=== PATIENT | female | born 1970 | race Caucasian/White ===

== ENCOUNTER 2019-08-30 09:15 | Outpatient (RCR) | payer BC, SELFPAY | END 2019-10-01 23:59 | disposition home or self-care (01) | LOC: ANHDMC 09:15 | PROVIDERS: PCP Family Medicine; Visit Provider Family Medicine | DX: E11.9 Type 2 diabetes mellitus without complications (principal); Z71.89 Other specified counseling | CPT/HCPCS: G0108 ==

== ENCOUNTER 2019-09-15 20:24 | Emergency (ER) | payer BC, SELFPAY ==
--- NOTE | ~2019-09-15 | XR_ITS ---
XR tibia fibula LT 2V 09/15/2019 21:07 INDICATION: Left leg pain PROCEDURE: 2 views left tibia/fibula COMPARISON: No prior studies for comparison. FINDINGS: Fracture, dislocation or subluxation is not identified. The soft tissues appear within norm al limits. No foreign bodies are identified. IMPRESSION: 1: NO ACUTE BONE OR JOINT ABNORMALITY IDENTIFIED. Reviewed, dictated and finalized at location A. NCIAL AGENT
[2019-09-15 20:27] VITALS: BP 180/97; PULSE 105; RESP 20; TEMP 36.4; O2SAT 100
--- NOTE | 2019-09-15 21:10 | ED.WOUNDLAC ---
HPI - Wound/Laceration General Chief Complaint: Wound/Laceration Stated Complaint: lac Time Seen by Provider: 09/15/19 21:09 Source: patient Mode of arrival: ambulatory Limitations: no limitations History of Present Illness HPI narrative: The pt is a 53 y/o female who presents to the ED with c/o a wound to her lt cristobal that occurred this evening. The pt states that she cut her cristobal on a tree trunk. She is able to bear weight on her lt leg. The pt has a PMHx of DM I. Onset (ago): hour(s) (this evening) Location: other (lt cristobal) Extremity Location: Left: lower leg Associated symptoms: none Related Data Allergies Allergy/AdvReac Type Severity Reaction Status Date / Time No Known Allergies Allergy Verified 09/15/19 20:29 Review of Systems Review of Systems: All systems reviewed & are unremarkable except as noted in HPI and below Integumentary/Breasts: Skin/Breast: Reports wounds (lt cristobal) PMFSH Past Medical History Medical History (Updated 09/16/19 @ 00:00 by Juanita Veliz) DM I (diabetes mellitus, type I) Surgical History Surgical History (Updated 09/15/19 @ 21:16 by Asia Blanco) No pertinent past surgical history Social History Social History (Updated 09/15/19 @ 21:16 by Asia Blanco) Smoking status: Never smoker Exam Const: General: healthy appearing and no acute distress Nutritional Appearance: well nourished HENMT: Mouth: Yes lip normal and Yes moist mucous membranes Eyes: Conjunctivae: conjunctivae normal Pupils: Equal, round and reactive pupils present Resp: Effort & Inspection: normal respiratory effort Auscultation: clear to auscultation bilaterally Cardio: Rate: regular rate Rhythm: regular rhythm Heart sounds: no murmurs GI: GI Palp: Yes Soft to palpation and No Tenderness to palpation present (GI) Auscultation: normal bowel sounds Back/Spine/Pelvis: Back: other (full ROM) Skin: General skin exam: normal color, dry skin and other (warm) Wounds: wounds noted (5cm lt cristobal lac into subcutaneous fat) Neuro: General: patient oriented x3 Speech: normal speech Extrem: General: full ROM Psych: Mental Status: mental status grossly normal Affect: normal affect Course Vital Signs Vital signs: Vital Signs Temperature 36.4 C L 09/15/19 20:27 Pulse Rate 105 H 09/15/19 20:27 Respiratory Rate 20 09/15/19 20:27 Blood Pressure 180/97 H 09/15/19 20:27 Pulse Oximetry 100 09/15/19 20:27 Temperature 36.4 C L 09/15/19 20:27 Pulse Rate 105 H 09/15/19 20:27 Respiratory Rate 20 09/15/19 20:27 Blood Pressure 180/97 H 09/15/19 20:27 Pulse Oximetry 100 09/15/19 20:27 Procedures Laceration Laceration 1: Date: 09/15/19 Time: 21:57 Site: lower extremity Side (If applicable): left Size (cm): 5 Description: linear Local Anesthetic: lidocaine 1% and with epi Amount of anesthesia used (mL): 10 Pre-repair: wound explored and irrigated ====== Skin Level ====== Skin layer closed with: nylon Size (cm): 4-0 Number of sutures: 11 Technique: simple, interrupted ====== Subcutaneous Layer ====== Subcutaneous layer closed with: vicryl Size: 4-0 Number of sutures: 3 Technique: simple, interrupted ====== Muscle Layer ====== ====== Tendon Layer ====== MDM - Wound/Laceration Differential Diagnosis Differential diagnosis: Likely laceration and other (fracture) Medical Records Attestation: I reviewed the patient's medical records. Imaging Data Radiologist's impression: ITS Impressions Tibia/Fibula X-Ray 09/15/19 21:09 IMPRESSION: 1: NO ACUTE BONE OR JOINT ABNORMALITY IDENTIFIED. Discharge Plan Discharge Clinical Impression: Laceration Patient Disposition: Home, Self-Care Condition: Stable Instructions: Laceration (ED) Follow-up/Referrals: Jeanette Nava MD [Primary Care Provider] -
[2019-09-15] MEDS: TETANUS,DIPHTHERIA,AC PERTUSSIS ADULT 0.5 ML (ADACEL) IM (21:36)
== END 2019-09-15 21:50 | disposition home or self-care (01) ==
PROVIDERS: Emergency Provider Emergency Medicine; PCP Family Medicine
DX: S81.812A Laceration without foreign body, left lower leg, initial encounter (principal); E10.9 Type 1 diabetes mellitus without complications; Z23 Encounter for immunization; W26.8XXA Contact with other sharp object(s), not elsewhere classified, initial encounter
CPT/HCPCS: 12002; 12032; 73590; 90471; 90715; 99282; 99283

== ENCOUNTER 2019-09-25 16:17 | Emergency (ER) | payer BC, SELFPAY ==
[2019-09-25 16:34] VITALS: BP 132/77; PULSE 63; RESP 16; TEMP 36.1; O2SAT 100
--- NOTE | 2019-09-25 17:24 | ED.GENADULT ---
HPI - General Adult General Chief complaint: Wound/Laceration Stated complaint: INFECTED SUTURES Time Seen by Provider: 09/25/19 17:25 Source: patient Mode of arrival: ambulatory Limitations: no limitations History of Present Illness HPI narrative: 49-year-old female patient presents to the [facility] with complaints of an infected wound to the left lower leg. Patient states that she had stitches placed September 15 after getting a laceration to the left lower leg from a branch in her yard. Patient states that she is a type I diabetic. Patient states she was not placed on antibiotics at that time in the ER. Patient states that she thinks is getting worse and has had some yellow discharge and some surrounding redness. Denies any fevers, chest pain, shortness of breath. Patient states she does have an appointment with her primary doctor on Tuesday to have the stitches removed. Related Data Home Medications Medication Instructions Recorded Confirmed ibuprofen 200 mg capsule 200 mg PO Q6H PRN 06/22/19 09/25/19 levothyroxine 125 mcg tablet 125 mcg PO DAILY 06/22/19 09/25/19 milk thistle seed extract 87.5 mg 87.5 mg PO DAILY 06/22/19 09/25/19 capsule pen needle, diabetic 31 gauge x #30 each 06/22/19 09/03/1912/28 Fiasp Insulin 09/25/19 methotrexate 09/25/19 pravastatin 20 mg tablet 10 mg PO DAILY tablet 09/25/19 09/25/19 Allergies Allergy/AdvReac Type Severity Reaction Status Date / Time No Known Allergies Allergy Verified 09/25/19 16:42 Review of Systems Review of Systems: Narrative: CONSTITUTIONAL: Denies fever, chills, or sweats. EYES: Denies visual changes, redness, or discharge. ENT: Denies rhinorrhea, congestion, sore throat, or otalgia. CARDIOVASCULAR: Denies chest pain, palpitations, or edema. RESPIRATORY: Denies cough or dyspnea. GASTROINTESTINAL: Denies abdominal pain, nausea, vomiting, or diarrhea. GENITOURINARY: Denies dysuria or hematuria. SKIN: Denies rash or itching. Positive redness and yellow discharge coming from wound to left lower leg MUSCULOSKELETAL: Denies back pain, joint pain, or myalgia. NEUROLOGIC: Denies headache, numbness, or weakness. PSYCHIATRIC: Denies anxiety or depression. 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 There is no relevant family history pertinent to the presenting complaint. Exam Narrative: Exam Narrative: GENERAL: Well-appearing, well-nourished, and in no acute distress. HEAD: Normocephalic, atraumatic. EYES: PERRLA and EOMI. ENT: Nares clear, no rhinorrhea or epistaxis. Mucous membranes moist. NECK: Supple. No lymphadenopathy CHEST: Clear to auscultation. No respiratory distress. HEART: Regular rate and rhythm. No murmur heard. Normal peripheral pulses. ABDOMEN: Soft, nontender, nondistended, normal active bowel sounds. EXTREMITIES: Normal range of motion. No edema. SKIN: Warm, dry, no rash. Patient has approximately 5 cm linear laceration to the left lower cristobal area on the anterior side. There is some yellow discharge noted on the bandage and there is some surrounding erythema with slight warmth. The sutures are still intact. NEURO: No focal deficits. Alert and
== END 2019-09-25 17:36 | disposition home or self-care (01) ==
PROVIDERS: Emergency Provider Nurse Practitioner Family; PCP Family Medicine
DX: T81.41XA Infection following a procedure, superficial incisional surgical site, initial encounter (principal); S81.812D Laceration without foreign body, left lower leg, subsequent encounter; W26.8XXD Contact with other sharp object(s), not elsewhere classified, subsequent encounter; E78.5 Hyperlipidemia, unspecified; E03.9 Hypothyroidism, unspecified; E10.9 Type 1 diabetes mellitus without complications
CPT/HCPCS: 99213; G0463

== ENCOUNTER 2019-11-30 14:04 | Outpatient (CLI) | payer BC, SELFPAY ==
--- NOTE | ~2019-11-30 | US_ITS ---
EXAMINATION: US art doppler w press LE BI DATE: 11/30/2019 15:18 CDT INDICATION: Peripheral vascular disease TECHNIQUE: Segmental pressures and plethysmographic and Doppler waveforms of the brachial and lower e xtremity arteries were obtained. COMPARISON: None. FINDINGS: Right and left brachial artery pressures of 119 mm Hg and 127 mm Hg, respectively, are concordant (no rmal difference <= 30 mmHg). The right high-thigh pressure index is 1.11 (normal > 1.2). The right ankle-brachial index (FAYE) is 1 .02 (normal >= 0.9-1.0). The right great toe-brachial index (TBI) is 0.65 (normal >= 0.60). The right lower extremity segmental pressure gradients are normal (normal gradients <= 20-30 mmHg between kim cent levels on the same leg or the same levels on the two legs). Arterial Doppler waveforms are bipha sic and triphasic. The left high-thigh pressure index is 1.12. The left FAYE is 1.08. The left TBI is 0.65. The left lowe r extremity segmental pressure gradients are normal. Arterial Doppler waveforms are biphasic and trip hasic. IMPRESSION: 1. Normal bilateral ankle and toe brachial indices. Reviewed, dictated and finalized at location A.
== END 2019-11-30 14:05 | disposition home or self-care (01) ==
PROVIDERS: PCP Family Medicine; Visit Provider Podiatrist Foot & Ankle Surgery
DX: I73.9 Peripheral vascular disease, unspecified (principal)
CPT/HCPCS: 93923

== ENCOUNTER 2019-12-25 14:59 | Outpatient (CLI) | payer BC, SELFPAY ==
--- NOTE | 2019-12-25 | ECG_ITS ---
Measurements Intervals [place] Rate: 67 P: 70 WI: 128 QRS: 44 QRSD: 93 T: 58 QT: 384 QTc: 405 Interpretive Statements SINUS RHYTHM WITH SINUS ARRHYTHMIA INCOMPLETE RIGHT BUNDLE BRANCH BLOCK BORDERLINE ECG Electronically Signed On 12-25-2019 16:03:43 CDT by Jakob Dallas D.O.
[2019-12-25 16:18] LABS: Thyroid Stimulating Hormone 0.847 uIU/mL (0.465-4.680)
== END 2019-12-25 15:00 | disposition home or self-care (01) ==
PROVIDERS: PCP Family Medicine; Visit Provider Internal Medicine Endocrinology, Diabetes & Metabolism
DX: Z01.818 Encounter for other preprocedural examination (principal); E11.42 Type 2 diabetes mellitus with diabetic polyneuropathy; R03.0 Elevated blood-pressure reading, without diagnosis of hypertension; E03.9 Hypothyroidism, unspecified
CPT/HCPCS: 36415; 84439; 84443; 93005

== ENCOUNTER 2020-01-10 09:15 | Outpatient (RCR) | payer BC, SELFPAY | END 2020-02-04 23:59 | disposition home or self-care (01) | LOC: ANHDMC 09:15 | PROVIDERS: PCP Family Medicine; Visit Provider Family Medicine | DX: E11.9 Type 2 diabetes mellitus without complications (principal); Z71.89 Other specified counseling | CPT/HCPCS: G0108 ==

== ENCOUNTER 2020-01-11 08:10 | Outpatient (CLI) | payer BC, SELFPAY ==
[2020-01-11 08:41] LABS: Blood Urea Nitrogen 18 mg/dL (7-17); Calcium 8.8 mg/dL (8.4-10.2); Carbon Dioxide 32 mmol/L (22-30); Chloride 102 mmol/L (98-107); Estimated Glomerular Filt Rate > 60; Glucose 116 mg/dL (65-105); Potassium 4.2 mmol/L (3.4-5.0); Sodium 136 mmol/L (137-145)
== END 2020-01-11 08:11 | disposition home or self-care (01) ==
PROVIDERS: PCP Family Medicine; Visit Provider Podiatrist Foot & Ankle Surgery
DX: E11.42 Type 2 diabetes mellitus with diabetic polyneuropathy (principal)
CPT/HCPCS: 36415; 80048

== ENCOUNTER 2020-04-17 10:30 | Outpatient (RCR) | payer BC, SELFPAY | END 2020-04-17 16:25 | disposition home or self-care (01) | LOC: ANHDMC 10:30 | PROVIDERS: PCP Family Medicine; Visit Provider Family Medicine | DX: E11.9 Type 2 diabetes mellitus without complications (principal); Z71.89 Other specified counseling | CPT/HCPCS: G0108 ==

== ENCOUNTER 2020-08-12 10:15 | Outpatient (CLI) | payer BC, SELFPAY ==
[2020-08-12 11:10] LABS: Anion Gap 4 mmol/L (8-16); Blood Urea Nitrogen 19 mg/dL (7-17); Calcium 8.6 mg/dL (8.4-10.2); Carbon Dioxide 32 mmol/L (22-30); Chloride 102 mmol/L (98-107); Estimated Glomerular Filt Rate > 60; Glucose 90 mg/dL (65-105); Sodium 138 mmol/L (137-145)
== END 2020-08-12 10:16 | disposition home or self-care (01) ==
LOC: ANHLAB 10:17
PROVIDERS: PCP Family Medicine; Visit Provider Podiatrist Foot & Ankle Surgery
DX: E11.42 Type 2 diabetes mellitus with diabetic polyneuropathy (principal)
CPT/HCPCS: 36415; 80048

== ENCOUNTER 2020-08-19 09:14 | Outpatient (RCR) | payer BC, SELFPAY | END 2020-11-03 13:58 | disposition home or self-care (01) | LOC: ANHDMC 09:14 | PROVIDERS: PCP Family Medicine; Visit Provider Family Medicine | DX: E10.649 Type 1 diabetes mellitus with hypoglycemia without coma (principal); Z71.89 Other specified counseling | CPT/HCPCS: G0108 ==

== ENCOUNTER 2020-10-03 08:59 | Emergency (ER) | payer BC, SELFPAY ==
[2020-10-03 09:17] VITALS: BP 127/88; PULSE 89; RESP 20; TEMP 36.4; O2SAT 99
[2020-10-03 09:19] VITALS: BP 127/88; PULSE 89; RESP 20; TEMP 36.4; O2SAT 99
--- NOTE | 2020-10-03 09:19 | ED.URI ---
HPI - URI/Sore Throat General Chief Complaint: Upper Respiratory Infection Stated Complaint: SWOLLEN GLANDS/WHITE TONGUE Time Seen by Provider: 10/03/20 09:19 Source: patient Mode of arrival: ambulatory Limitations: no limitations History of Present Illness HPI Narrative: Donna Bocanegra is a 50 yo female with a PMH of type 1 diabetes, rheumatoid arthritis, hypothyroid, high cholesterol, [facility] with complaints of sore throat swollen lymph nodes and fatigue that started on Tuesday. She states that she has been home most times except she was out at the store earlier in the week when she started to feel poorly and also was at a school event last week to receive her first dose of Pfizer vaccine. Patient has lost 100 pounds and has maintained this lower weight for year and consequently her cholesterol medication is considered to be preventative for coronary artery disease as she is a type I diabetic. She is a non-smoker only occasionally drinks Blood sugar today is 149 Related Data Home Medications Medication Instructions Recorded Confirmed pravastatin 20 mg tablet 10 mg PO DAILY tablet 09/25/19 10/03/20 Allergies Allergy/AdvReac Type Severity Reaction Status Date / Time No Known Allergies Allergy Verified 10/03/20 09:17 Review of Systems Review of Systems: Narrative: CONSTITUTIONAL: Denies fever, chills, sweats. EYES: Denies visual changes, redness, discharge. ENT: Denies rhinorrhea, congestion, has sore throat, otalgia. Has white coating on tongue, swollen lymph nodes in throat CARDIOVASCULAR: Denies chest pain, palpitations, edema. RESPIRATORY: Denies dyspnea, wheezing, cough GASTROINTESTINAL: Denies abdominal pain, nausea, vomiting, diarrhea. GENITOURINARY: Denies dysuria, hematuria, abnormal discharge SKIN: Denies rash or itching. NEUROLOGIC: Denies numbness, or focal weakness. PSYCHIATRIC: Denies anxiety or depression. [facility] Past Medical History Medical History (Updated 10/03/20 @ 09:54 by Beatriz Prado CNP) DM I (diabetes mellitus, type I) HLD (hyperlipidemia) Hypothyroidism Rheumatoid arthritis Type 1 diabetes mellitus without complications Surgical History Surgical History (Updated 10/03/20 @ 09:37 by Beatriz Prado CNP) History of foot surgery Family History Family History Father Family history of arthritis Mother Family history of heart disease in male family member before age 55 Other Family history of alcoholism Family history of osteoporosis Family history of seizure disorder Social History Social History Smoking status: Never smoker Second hand tobacco smoke exposure: No Alcohol intake: current 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 There is no relevant family history pertinent to the presenting complaint. Exam Narrative: Exam Narrative: GENERAL: This is a well-nourished, well-developed patient, in moderate distress. HEAD: normocephalic, atraumatic. EYES:. Sclera clear/white. Vision is grossly intact. EARS: External ears normal, auditory canals clear and without drainage, TMs normal without perforation. Hearing grossly intact. NOSE: External nose normal without nasal discharge, nares without redness, no rhinorrhea. THROAT: Mucous membranes moist, posterior pharynx bilateral swelling in posterior pharynx, slight white ness to tongue NECK: Neck supple, bilateral tender submandibular lymph nodes, posterior lymph nodes are nontender CARDIOVASCULAR: Regular rate and rhythm without murmurs, gallops, or rubs. RESPIRATORY: Clear to auscultation. Breath sounds equal bilaterally. No wheezes, rales, or rhonchi. GASTROINTESTINAL: Abdomen soft, SKIN: warm, intact with no suspicious lesions or rash, good texture and turgor. NEURO: nicci
== END 2020-10-03 10:16 | disposition home or self-care (01) ==
PROVIDERS: Emergency Provider Nurse Practitioner; PCP Family Medicine
DX: J02.9 Acute pharyngitis, unspecified (principal); Z20.822 Contact with and (suspected) exposure to COVID-19; E10.9 Type 1 diabetes mellitus without complications; E78.5 Hyperlipidemia, unspecified; E03.9 Hypothyroidism, unspecified; M06.9 Rheumatoid arthritis, unspecified
CPT/HCPCS: 87081; 87426; 87880; 99213; C9803; G0463

== ENCOUNTER 2020-12-08 10:45 | Outpatient (CLI) | payer BC, SELFPAY ==
[2020-12-08 12:40] LABS: Anion Gap 5 mmol/L (8-16); Blood Urea Nitrogen 19 mg/dL (7-17); Carbon Dioxide 28 mmol/L (22-30); Chloride 107 mmol/L (98-107); Estimated Glomerular Filt Rate > 60; Glucose 149 mg/dL (65-105); HDL Direct 96 mg/dL; Potassium 4.3 mmol/L (3.4-5.0); Sodium 140 mmol/L (137-145)
[2020-12-08 12:51] LABS: LDL Cholesterol Direct 83 mg/dL
[2020-12-08 12:55] LABS: Free T4 Free Thyroxine 1.35 ng/mL (0.78-2.19)
[2020-12-08 13:08] LABS: Microalbumin Urine Random 20.1 mg/L (0-16.7)
== END 2020-12-08 10:46 | disposition home or self-care (01) ==
LOC: ANHWCLAB 10:47
PROVIDERS: PCP Family Medicine; Visit Provider Internal Medicine Endocrinology, Diabetes & Metabolism
DX: E10.649 Type 1 diabetes mellitus with hypoglycemia without coma (principal); E03.9 Hypothyroidism, unspecified
CPT/HCPCS: 36415; 80048; 82043; 83718; 83721; 84439; 84443

== ENCOUNTER 2021-02-17 12:15 | Emergency (ER) | payer BC, SELFPAY ==
[2021-02-17] VITALS (13 sets, daily range): BP systolic 122–155; BP diastolic 62–94; PULSE 72–85; RESP 18; TEMP 36.3; O2SAT 90–100
[2021-02-17 12:55] LABS: Basophils Absolute Auto 0.1 K/mm3 (0.0-0.1); Basophils Percent Auto 0.9 % (0.2-1.2); Eosinophils Absolute Auto 0.2 K/mm3 (0-0.3); Eosinophils Percent Auto 2.4 % (0-4.4); Hemoglobin 13.2 g/dL (12.0-15.0); Immature Granulocyte Absolute 0.03 K/mm3 (0.00-0.031); Immature Granulocyte Percent A 0.4 % (0-0.5); Lymphocytes Absolute Auto 2.34 K/mm3 (0.9-3.2); Mean Corpuscular HGB Conc 33.8 g/dl (32-36); Mean Corpuscular Hemoglobin 30.6 pg (26-34); Mean Corpuscular Volume 90.3 fl (80-100); Mean Platelet Volume 10.6 fl (7.4-10.4); Monocytes Absolute Auto 0.8 K/mm3 (0.1-0.6); Monocytes Percent Auto 9.8 % (2.6-8.5); Neutrophils Absolute Auto 4.6 K/mm3 (1.3-6.7); Neutrophils Percent Auto 57.5 % (45.5-73.1); Platelet Count Result 211 k/mm3 (150-375); Red Blood Count 4.32 M/mm3 (4.2-5.4); Red Cell Distribution Width 12.7 % (11.5-14.5); White Blood Count 8.1 K/mm3 (4.5-10.0)
[2021-02-17 13:05] LABS: Alanine Aminotransferase 19 U/L (4-35); Albumin Level 4.1 g/dL (3.5-5.1); Alkaline Phosphatase 118 U/L (38-126); Anion Gap 6 mmol/L (8-16); Aspartate Amino Transferase 32 U/L (14-36); Bilirubin,Total 1.5 mg/dL (0.2-1.3); Blood Urea Nitrogen 15 mg/dL (7-17); Calcium 8.9 mg/dL (8.4-10.2); Carbon Dioxide 30 mmol/L (22-30); Chloride 102 mmol/L (98-107); Estimated CRCL calculation 101 ml/min; Estimated Glomerular Filt Rate > 60; Glucose 192 mg/dL (65-105); Sodium 138 mmol/L (137-145)
[2021-02-17 16:47] LABS: Glucose Point of Care 89 mg/dl (65-105)
--- NOTE | 2021-02-17 18:43 | ED.WOUNDLAC ---
HPI - Wound/Laceration General Chief Complaint: Wound/Laceration Stated Complaint: Abscess R Upper Arm Time Seen by Provider: 02/17/21 16:49 Source: patient Mode of arrival: ambulatory Limitations: no limitations History of Present Illness HPI narrative: Patient is a 50-year-old female who presents complaining of abscess to right upper arm. She reports it is possibly from her glucose monitoring patch. Patient reports noticing area of redness approximately 3 days ago. Patient reports being seen in on Tuesday and started on antibiotics. Patient reports that she was instructed to keep hot packs on and if abscess did not start draining, she would have to go to the ED or another urgent care for incision and drainage. Patient reports increased pain and swelling over the past day. She denies all other complaints at this time. Related Data Home Medications Medication Instructions Recorded Confirmed pravastatin 20 mg tablet 10 mg PO DAILY tablet 09/25/19 10/03/20 Allergies Allergy/AdvReac Type Severity Reaction Status Date / Time No Known Allergies Allergy Verified 10/03/20 09:17 Review of Systems Review of Systems: Narrative: CONSTITUTIONAL: Denies fever, chills, or sweats. EYES: Denies visual changes, redness, or discharge. ENT: Denies rhinorrhea, congestion, sore throat, or otalgia. CARDIOVASCULAR: Denies chest pain, palpitations, or edema. RESPIRATORY: Denies cough or dyspnea. GASTROINTESTINAL: Denies abdominal pain, nausea, vomiting, or diarrhea. GENITOURINARY: Denies dysuria or hematuria. SKIN: Reports abscess to right upper arm MUSCULOSKELETAL: Denies back pain, joint pain, or myalgia. NEUROLOGIC: Denies headache, numbness, dizziness, or weakness. PSYCHIATRIC: Denies anxiety or depression. [facility] Past Medical History Medical History DM I (diabetes mellitus, type I) HLD (hyperlipidemia) Hypothyroidism Rheumatoid arthritis Type 1 diabetes mellitus without complications Surgical History Surgical History History of foot surgery Family History Family History Father Family history of arthritis Mother Family history of heart disease in male family member before age 55 Other Family history of alcoholism Family history of osteoporosis Family history of seizure disorder Social History Social History Smoking status: Never smoker Second hand tobacco smoke exposure: No Alcohol intake: current 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 Please see nursing chart for further information. There is no relevant family history pertinent to the presenting complaint. Exam Narrative: Exam Narrative: GENERAL: Well-appearing, well-nourished, and in no acute distress. HEAD: Normocephalic, atraumatic. EYES: EOMI. No redness or drainage. Conjunctiva are normal. ENT: Mucous membranes pink and moist. CHEST: No respiratory distress. HEART: Regular rate and rhythm. No murmur appreciated. Normal peripheral pulses. EXTREMITIES: Normal range of motion. SKIN: Approximate 3 x 4 cm area of erythema to right upper arm, fluctuation induration noted, no drainage, tender with palpation NEURO: No focal deficits. Alert and oriented x3. Gait steady. PSYCH: Normal affect. No signs of depression or anxiety. Course Vital Signs Vital signs: Vital Signs Temperature 36.3 C L 02/17/21 12:32 Pulse Rate 85 02/17/21 12:32 Respiratory Rate 18 02/17/21 12:32 Blood Pressure 129/89 02/17/21 12:32 Pulse Oximetry 100 02/17/21 12:32 Temperature 36.3 C L 02/17/21 12:32 Pulse Rate 80 02/17/21 19:10 Respiratory Rate 18 07/0
== END 2021-02-17 19:11 | disposition home or self-care (01) ==
PROVIDERS: Emergency Medicine; Emergency Provider Nurse Practitioner; PCP Family Medicine
DX: L02.413 Cutaneous abscess of right upper limb (principal); E10.9 Type 1 diabetes mellitus without complications; E78.5 Hyperlipidemia, unspecified; E03.9 Hypothyroidism, unspecified; M06.9 Rheumatoid arthritis, unspecified; R03.0 Elevated blood-pressure reading, without diagnosis of hypertension
CPT/HCPCS: 10060; 36415; 80053; 82948; 85025; 99283

== ENCOUNTER 2021-04-10 17:22 | Emergency (ER) | payer BC, SELFPAY ==
[2021-04-10 17:31] VITALS: BP 134/77; PULSE 69; RESP 16; TEMP 36.6; O2SAT 100
[2021-04-10] MEDS: LIDOCAINE/PRILOCAINE CREAM 2.5-2.5% TUBE 1 EACH TOPICAL (17:44)
--- NOTE | 2021-04-10 17:44 | ED.SKABFB ---
HPI - Skin/Abscess/Foreign Bdy General Chief complaint: Skin/Abscess/Foreign Body Stated complaint: pos skin infection Time Seen by Provider: 04/10/21 18:17 Source: patient and RN notes reviewed Limitations: no limitations History of Present Illness HPI narrative: The vaccinated patient, on several meds including insulin pump, presents with skin eruption. Patient states she had a prior infection of her disposable, 3-day insulin pump. Back in February, axillary skin infection culture was remarkable for staph aureus with sensitivity to most, except penicillin and Bactrim. She now complains of similar symptoms on her back, medial right shoulder from a nickel sized area of redness, tenderness and swelling where she had the pump [she has since moved the pump to her left forearm]. No fever, streaking, discharge; discussed plan to provide needle I&D of the relatively small area, non fluctuant/ non abscessed aea and resume previous antibiotics [clindamycin]. Patient advised to go to the hospital or PMD in follow-up, especially not improved Related Data Home Medications Medication Instructions Recorded Confirmed pravastatin 20 mg tablet 10 mg PO DAILY tablet 09/25/19 04/10/21 insulin aspart (niacinamide) 14.5 unit SUBCUT DAILY 04/10/21 04/10/21 [Fiasp U-100 Insulin] Allergies Allergy/AdvReac Type Severity Reaction Status Date / Time No Known Allergies Allergy Verified 04/10/21 18:15 Review of Systems Review of Systems: General/Constitutional: No weight loss,fever Eyes: N0: Redness,discharge Ears/Nose/Throat: No: Epistaxis,ear discharge Respiratory: Denies: Hemoptysis Gastrointestinal: No Vomiting, Bleeding-rectal Skin: REPORTS Lumps, eruption Neurologic: No Focal Weakness,Sz Hematologic: Denies: Petechiae/Purpura Psychiatric: No: Suicida ideationl All Other Systems: Reviewed and Negative [facility] Past Medical History Medical History DM I (diabetes mellitus, type I) HLD (hyperlipidemia) Hypothyroidism Rheumatoid arthritis Type 1 diabetes mellitus without complications Surgical History Surgical History History of foot surgery Family History Family History Father Family history of arthritis Mother Family history of heart disease in male family member before age 55 Other Family history of alcoholism Family history of osteoporosis Family history of seizure disorder Social History Social History Second hand tobacco smoke exposure: No Alcohol intake: current 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 There is no relevant family history pertinent to the presenting complaint Exam Narrative: General Appearance: Nourished,Normocephalic,, Conjunctiva clear Ear: External ear normal Nose: Normal nose, Nare clear Mouth/Throat: Normal appearing Neck Exam: Supple Respiratory: Airway patent, No respiratory distress Musculoskeletal: Moves all extremities, Non tender Skin: Warm, Dry ; quarter size area of induration of the right paraspinous area without abscess/fluctuance Neurological: A&O x3 Psychiatric: Normal mood, Normal affect Course Vital Signs Vital signs: Vital Signs Temperature 97.9 F 04/10/21 17:31 Pulse Rate 69 04/10/21 17:31 Respiratory Rate 16 04/10/21 17:31 Blood Pressure 134/77 04/10/21 17:31 Pulse Oximetry 100 04/10/21 17:31 Temperature 97.9 F 04/10/21 17:31 Pulse Rate 69 04/10/21 17:31 Respiratory Rate 16 04/10/21 17:31 Blood Pressure 134/77 04/10/21 17:31 Pulse Oximetry 100 04/10/21 17:31 Procedures Abscess I/D back: Date of Incision: 04/10/21 Side (if applicable): kristine
== END 2021-04-10 18:17 | disposition home or self-care (01) ==
PROVIDERS: Emergency Provider Emergency Medicine; PCP Family Medicine
DX: L73.9 Follicular disorder, unspecified (principal); E10.9 Type 1 diabetes mellitus without complications; E78.5 Hyperlipidemia, unspecified; E03.9 Hypothyroidism, unspecified; M06.9 Rheumatoid arthritis, unspecified
CPT/HCPCS: 10140; 99203; 99213; G0463

== ENCOUNTER 2021-06-11 15:24 | Outpatient (CLI) | payer BC, SELFPAY ==
--- NOTE | ~2021-06-11 | MM_ITS ---
EXAMINATION: MM screening luis BI w luca HISTORY: Screening mammogram TECHNIQUE: Craniocaudal and mediolateral oblique 3-D tomosynthesis images were obtained and synthetic 2-D images were generated. CAD analysis was submitted and interpreted. COMPARISON: 07/11/2019, 03/21/2015 bilateral screening mammogram examinations BREAST PARENCHYMAL COMPOSITION: FINDINGS: There is no evidence of suspicious mass, calcification, or architectural distortion to sugg est malignancy in either breast. There has been no suspicious interval change. IMPRESSION: 1. No mammographic evidence of malignancy. 2. Recommend routine screening mammography in one year. BI-RADS Category 1: Negative Reviewed, dictated and finalized at location A.
== END 2021-06-11 15:25 | disposition home or self-care (01) ==
LOC: ANHIMG 15:26
PROVIDERS: PCP Family Medicine; Visit Provider Physician Assistant
DX: Z12.31 Encounter for screening mammogram for malignant neoplasm of breast (principal)
CPT/HCPCS: 77063; 77067

== ENCOUNTER 2021-06-27 16:39 | Emergency (ER) | payer BC, SELFPAY ==
[2021-06-27 16:46] VITALS: BP 137/83; PULSE 73; RESP 18; TEMP 36.2; O2SAT 100
--- NOTE | 2021-06-27 17:00 | ED.GENADULT ---
HPI - General Adult General Chief complaint: Ear Stated complaint: ear pain Source: patient Mode of arrival: ambulatory Limitations: no limitations History of Present Illness HPI narrative: 50 y/o female. PMHx Hypothyroid, HLD, DM. Presents to [facility] today with acute complaints of LT side otalgia, worsening in the past 5 days. Pt reports her LT ear to have been 'aching', and she notes having had 'yellow' discharge from her ear in the past few days. No fevers. No auditory trauma, changes, or loss. She reports her symptoms to have been refractory to home Tylenol regimen. Pt is without additional acute c/o illness upon PE. Related Data Home Medications Medication Instructions Recorded Confirmed pravastatin 20 mg tablet 10 mg PO DAILY tablet 09/25/19 05/26/21 Allergies Allergy/AdvReac Type Severity Reaction Status Date / Time No Known Allergies Allergy Verified 05/20/21 15:17 Review of Systems Review of Systems: CONSTITUTIONAL: Denies fever, chills, sweats. EYES: Denies visual changes, redness, discharge. ENT: Denies rhinorrhea, congestion, sore throat. Positive otalgia LT. CARDIOVASCULAR: Denies chest pain, palpitations, edema. RESPIRATORY: Denies dyspnea, wheezing, cough GASTROINTESTINAL: Denies abdominal pain, nausea, vomiting, diarrhea. GENITOURINARY: Denies dysuria, hematuria, abnormal discharge SKIN: Denies rash or itching. MUSCULOSKELETAL: Denies acute back pain, joint pain, or myalgia. NEUROLOGIC: Denies numbness, or focal weakness. PSYCHIATRIC: Denies anxiety or depression. All systems reviewed & are unremarkable except as noted in HPI and below [facility] Past Medical History Medical History DM I (diabetes mellitus, type I) HLD (hyperlipidemia) Hypothyroidism Rheumatoid arthritis Type 1 diabetes mellitus without complications Surgical History Surgical History History of foot surgery Family History Family History Father Family history of arthritis Mother Family history of heart disease in male family member before age 55 Other Family history of alcoholism Family history of osteoporosis Family history of seizure disorder Social History Social History Second hand tobacco smoke exposure: No Alcohol intake: current Drinks per week: 4 Substance use: current Substance use type: marijuana Other substance usage details: edibles; 2x/week 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 HEAD: normocephalic, atraumatic. EYES: PERRL. Sclera clear/white. EARS: External ears normal. LT auditory canal is erythematous with mild yellow discharge. TM Bulging. Positive Tragus maneuver LT. No obstruction or perforation. RT auditory exam is normal. No hearing deficits. NOSE: External nose normal. Positive Rhinorrhea, no obstruction, nares patent. THROAT: Mucous membranes moist, posterior pharynx clear. No exudates. NECK: Neck supple, non-tender without lymphadenopathy, masses or thyromegaly. CARDIOVASCULAR: Regular rate and rhythm without murmurs, gallops, or rubs. RESPIRATORY: Clear to auscultation. Breath sounds equal bilaterally. No wheezes, rales, or rhonchi. GASTROINTESTINAL: Abdomen soft, non-tender, nondistended. Bowel sounds are active. No guarding. SKIN: warm, intact with no suspicious lesions or rash, good texture and turgor. NEURO: Alert, active, and age appropriate. No focal neurologic deficits. Course Vital Signs Vital signs: Vital Signs Temperature 36.2 C L 06/27/21 16:46 Pulse Rate 73 06/27/21 16:46 Respiratory Rate 18 06/27/21 16:46 Blood Pressure 137/83 06/27/21 16:46 Pulse Oximetry 100 06/27/21 1
== END 2021-06-27 17:04 | disposition home or self-care (01) ==
PROVIDERS: Emergency Provider Nurse Practitioner Adult Health; PCP Family Medicine
DX: H66.92 Otitis media, unspecified, left ear (principal); E10.9 Type 1 diabetes mellitus without complications; E78.5 Hyperlipidemia, unspecified; E03.9 Hypothyroidism, unspecified; M06.9 Rheumatoid arthritis, unspecified
CPT/HCPCS: 99213; G0463

== ENCOUNTER 2021-11-26 10:19 | Emergency (ER) | payer BC, SELFPAY ==
[2021-11-26] VITALS (23 sets, daily range): BP systolic 116–141; BP diastolic 40–108; PULSE 67–96; RESP 15–24; TEMP 37.2; O2SAT 94–100
--- NOTE | ~2021-11-26 | CT_ITS ---
EXAMINATION: CTA chest PE protocol DATE: 11/26/2021 12:34 INDICATION: Shortness of breath. COVID-19 positive. TECHNIQUE: Computed tomography angiography (CTA) of the chest was performed with 100 mL Omnipaque-350 intravenous contrast timed to evaluate the pulmonary arteries. Coronal maximum intensity projection 3D-reconstructions were created by the technologist. Automated exposure control and iterative reconst ruction technique were employed. The dose-length product was 214.22 mGy-cm. COMPARISON: Chest 2 views 12/28/2016 FINDINGS: There is mild paraspinal scarring in right lower lobe. There is bronchiectasis in left uppe r lobe and left lower lobe with mucous plugging in left lower lobe. There is mild atelectasis in left lower lobe. There are airspace opacities with volume loss and architectural distortion in left upper lobe, consistent with scarring. There are two 5 mm nodules in left lower lobe, likely benign. No ple ural effusion. The heart size is normal. No pericardial effusion. There is no pulmonary embolus. Ther e is dextroscoliosis and severe spondylosis of thoracic spine. There is mild chronic anterior wedging of multiple vertebral bodies. IMPRESSION: 1. No pulmonary embolus. 2. Bronchiectasis and chronic scarring in left lung. Reviewed, dictated and finalized at location A.
--- NOTE | ~2021-11-26 | XR_ITS ---
EXAMINATION: XR chest 1V portable DATE: 11/26/2021 11:12 INDICATION: Shortness of breath. COVID-19 positive. TECHNIQUE: A single frontal view of the chest was obtained on 2 radiographs. COMPARISON: Chest 2 views 12/28/2016 FINDINGS: There is mild scarring in left upper lobe. No pleural effusion or pneumothorax. The heart s ize is normal. There is a prominent left paracardial fat pad. IMPRESSION: 1. Stable mild scarring in left lung upper lobe. Reviewed, dictated and finalized at location A.
[2021-11-26 10:26] LABS: Glucose Point of Care 81 mg/dl (65-105)
--- NOTE | 2021-11-26 10:31 | ECG_ITS ---
Measurements Intervals [place] Rate: 83 P: 46 NV: 136 QRS: 18 QRSD: 91 T: 55 QT: 335 QTc: 395 Interpretive Statements SINUS RHYTHM INCOMPLETE RIGHT BUNDLE BRANCH BLOCK [90+ ms QRS DURATION, TERMINAL R IN V1/V2, 40+ ms S IN I/aVL/V4/V5/V6] BORDERLINE ECG COMPARED TO ECG 12/25/2019 15:28:24 NO SIGNIFICANT CHANGES Electronically Signed On 11-26-2021 16:57:55 CDT by Michel Orellana M.D.
--- NOTE | 2021-11-26 10:41 | ED.GENADULT ---
HPI - General Adult General Chief complaint: Nausea/Vomiting/Diarrhea Stated complaint: diabetes (Type 1, diag w/ COVID yest) Time Seen by Provider: 11/26/21 10:23 Source: patient Mode of arrival: ambulatory Limitations: no limitations History of Present Illness HPI narrative: This is a 51 year old female with history of DM type 1 who presents for evaluation of shortness of breath . She states she developed fatigue, dry cough, diarrhea and congestion on Tuesday. She has continued to have daily diarrhea with dry cough. Last night she developed nausea and vomiting, and she states her blood sugars were in 300s this morning. She has been bolusing herself insulin. She had a virtual appointment today and she was told to come to ER for evaluation due to have shortness of breath. She is unsure if shortness of breath is from anxiety or covid. She tested positive for COVID yesterday. She denies chest pain or abdominal pain Related Data Home Medications Medication Instructions Recorded Confirmed pravastatin 20 mg tablet 10 mg PO DAILY tablet 09/25/19 10/19/21 Allergies Allergy/AdvReac Type Severity Reaction Status Date / Time No Known Allergies Allergy Verified 11/26/21 10:33 Review of Systems Review of Systems: All systems reviewed & are unremarkable except as noted in HPI and below Constitutional: Constitutional: Reports chills ENT: Reports nasal congestion Cardiovascular: Cardiovascular: Denies chest pain and Denies rapid heart rate Respiratory: Respiratory: Reports cough, Reports dyspnea and Denies wheezing Gastrointestinal: Gastrointestinal: Denies abdominal pain, Reports diarrhea, Reports nausea and Reports vomiting PMFSH Past Medical History Medical History DM I (diabetes mellitus, type I) HLD (hyperlipidemia) Hypothyroidism Rheumatoid arthritis Type 1 diabetes mellitus without complications Surgical History Surgical History History of foot surgery Family History Family History Father Family history of arthritis Mother Family history of heart disease in male family member before age 55 Other Family history of alcoholism Family history of osteoporosis Family history of seizure disorder Social History Social History Smoking status: Never smoker Second hand tobacco smoke exposure: No Alcohol intake: current Drinks per week: 4 Substance use: current Substance use type: marijuana Other substance usage details: edibles; 2x/week 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 Exam Const: General: no acute distress and alert Orientation/consciousness: patient oriented x3 Eyes: EOM: EOMs intact bilaterally Chest: Chest palpation & inspection: normal inspection of the chest Resp: Effort & Inspection: normal respiratory effort and no retractions Auscultation: clear to auscultation bilaterally Cardio: Rate: regular rate Rhythm: regular rhythm Heart sounds: no murmurs GI: GI Palp: Yes Soft to palpation, No Tenderness to palpation present (GI) and No Guarding due to palpation present (GI) Auscultation: normal bowel sounds Back/Spine/Pelvis: Back: no CVA tenderness Skin: General skin exam: normal color Rashes: no rashes Neuro: General: patient oriented x3, moves all extremities and CN's II-XI intact bilaterally Extrem: General: normal to inspection Psych: Mental Status: mental status grossly normal Affect: normal affect Course Reevaluation(s) Reevaluation #1: I have discussed labs and cT with patient. She has normal vitals and no pneumonia or PE. She is requesting prescription for paxlovid. She is day 5 of onset so will prescribed. Date: 11/26/21 Time: 13:13 Vital Signs Vital signs: Vital Signs Temperature 99 F 11/26/21 10:25
[2021-11-26 10:54] LABS: Basophils Absolute Auto 0.1 K/mm3 (0.0-0.1); Basophils Percent Auto 1.1 % (0.2-1.2); Eosinophils Absolute Auto 0.1 K/mm3 (0-0.3); Eosinophils Percent Auto 1.3 % (0-4.4); Hematocrit 41.1 % (37.0-47.0); Hemoglobin 13.5 g/dL (12.0-15.0); Immature Granulocyte Absolute 0.01 K/mm3 (0.00-0.031); Immature Granulocyte Percent A 0.2 % (0-0.5); Lymphocytes Percent Auto 29.9 % (18.3-44.2); Mean Corpuscular HGB Conc 32.8 g/dl (32-36); Mean Corpuscular Hemoglobin 30.7 pg (26-34); Mean Corpuscular Volume 93.4 fl (80-100); Mean Platelet Volume 10.5 fl (7.4-10.4); Monocytes Percent Auto 18.9 % (2.6-8.5); Neutrophils Absolute Auto 2.6 K/mm3 (1.3-6.7); Neutrophils Percent Auto 48.6 % (45.5-73.1); Platelet Count Result 211 k/mm3 (150-375); Red Cell Distribution Width 13.4 % (11.5-14.5); White Blood Count 5.4 K/mm3 (4.5-10.0)
[2021-11-26] MEDS: SODIUM CHLORIDE 0.9% IV 1,000 ML 999 ML IV CONT (10:57)
[2021-11-26] MEDS: ONDANSETRON INJ 4 MG/2 ML VIAL IV PUSH (10:57)
[2021-11-26 10:58] LABS: Alveolar/Arterial O2 Gradient 25.5 mmHg; Base Excess ABG 0.5 mEq/l (+/-2.0); Carboxyhemoglobin 0.2 % THb (0-2.0); Fractional Inspired Oxygen 21 %; HCO3 ABG 22.9 mEq/l (22.0-26.0); Methemoglobin ABG 0.2 %THb (0-1.5); Modified Allen's Test Pass; Oxygen Content ABG 18.8 %vol (16.0-22.0); Oxygen Saturation ABG 97.4 % (95.0-100.0); Oxyhemoglobin 96.4 % THb (90.0-100.0); PCO2 ABG 30.5 mmHg (35.0-45.0); PO2 ABG 87.7 mmHg (80.0-100.0); PO2 FiO2 Ratio Arterial Blood 4.18 %; Reduced Hemoglobin 3.2 %THb (0-5.0); Site Drawn LEFT RADIAL; Total Hemoglobin 13.8 g/dL (12.0-18.0); pH ABG 7.493 (7.350-7.450)
[2021-11-26 10:59] LABS: Device ROOM AIR
[2021-11-26 11:02] LABS: Alanine Aminotransferase 37 U/L (4-35); Albumin Level 3.9 g/dL (3.5-5.1); Alkaline Phosphatase 118 U/L (38-126); Anion Gap 5 mmol/L (8-16); Aspartate Amino Transferase 57 U/L (14-36); Bilirubin,Total 0.8 mg/dL (0.2-1.3); Blood Urea Nitrogen 17 mg/dL (7-17); Calcium 8.4 mg/dL (8.4-10.2); Carbon Dioxide 26 mmol/L (22-30); Chloride 104 mmol/L (98-107); Estimated CRCL calculation 93 ml/min; Estimated Glomerular Filt Rate > 60; Glucose 82 mg/dL (65-110); Lipase 82 U/L (23-300); Sodium 135 mmol/L (137-145)
[2021-11-26 11:03] LABS: Prothrombin Time 13.2 Seconds (11.1-14.7)
[2021-11-26 11:04] LABS: Partial Thromboplastin Time 30.9 SECONDS (22.3-36.8)
[2021-11-26 11:06] LABS: D Dimer 0.55 ug/mL (<0.48)
[2021-11-26 11:08] LABS: Appearance Urine Clear (Clear); Bilirubin Urine Negative (Negative); Blood Urine Negative (Negative); Color Urine Yellow (Yellow); Glucose Urine UA Negative (Negative); Ketones Urine Negative (Negative); Leukocyte Esterase Ur Negative LEU/UL (Negative); Nitrate Urine Negative (Negative); Protein Urine Negative (Negative); Urobilinogen Urine 0.2 mg/dL (<2.0)
[2021-11-26 11:10] LABS: Add Urine Microscopic? NO
== END 2021-11-26 13:31 | disposition home or self-care (01) ==
PROVIDERS: Emergency Provider General Practice; PCP Family Medicine
DX: U07.1 COVID-19 (principal); R06.00 Dyspnea, unspecified; R11.2 Nausea with vomiting, unspecified; E10.9 Type 1 diabetes mellitus without complications; E78.5 Hyperlipidemia, unspecified; E03.9 Hypothyroidism, unspecified; M06.9 Rheumatoid arthritis, unspecified; Z79.4 Long term (current) use of insulin; I45.10 Unspecified right bundle-branch block; J47.9 Bronchiectasis, uncomplicated
CPT/HCPCS: 36415; 36600; 71045; 71275; 80053; 81003; 81025; 82375; 82805; 82948; 83050; 83690; 85025; 85380; 85610; 85730; 93005; 96361; 96374; 99284; J2405; J7030; Q9967

== ENCOUNTER 2022-01-12 08:01 | Outpatient (CLI) | payer BC, SELFPAY ==
[2022-01-12 09:44] LABS: Anion Gap 5 mmol/L (8-16); Blood Urea Nitrogen 19 mg/dL (7-17); Calcium 8.4 mg/dL (8.4-10.2); Carbon Dioxide 27 mmol/L (22-30); Chloride 108 mmol/L (98-107); Cholesterol 214 mg/dL (0-200); Estimated Glomerular Filt Rate > 60; Glucose 72 mg/dL (65-110); HDL Direct 90 mg/dL; Potassium 4.2 mmol/L (3.4-5.0); Sodium 140 mmol/L (137-145); Triglycerides 50 mg/dL (<150)
[2022-01-12 09:55] LABS: LDL Cholesterol Direct 83 mg/dL
[2022-01-12 10:10] LABS: Thyroid Stimulating Hormone 0.266 uIU/mL (0.465-4.680)
[2022-01-12 10:15] LABS: Creatinine Urine 58.8 mg/dL
[2022-01-12 10:34] LABS: Free T4 Free Thyroxine 2.05 ng/mL (0.78-2.19)
[2022-01-12 10:59] LABS: MALB Creatinine Ratio < 10.2 mg/g (0-30); Microalbumin Urine Random < 6.0 mg/L (0-16.7)
== END 2022-01-12 08:02 | disposition home or self-care (01) ==
LOC: ANHLAB 08:03
PROVIDERS: PCP Family Medicine; Visit Provider Internal Medicine Endocrinology, Diabetes & Metabolism
DX: E10.65 Type 1 diabetes mellitus with hyperglycemia (principal); E03.9 Hypothyroidism, unspecified
CPT/HCPCS: 36415; 80048; 80061; 82043; 84439; 84443

== ENCOUNTER 2022-02-17 11:27 | Outpatient (CLI) | payer BC, SELFPAY ==
[2022-02-17 13:09] LABS: Free T4 Free Thyroxine 1.86 ng/mL (0.78-2.19)
== END 2022-02-17 11:28 | disposition home or self-care (01) ==
PROVIDERS: PCP Family Medicine; Visit Provider Internal Medicine Endocrinology, Diabetes & Metabolism
DX: E03.9 Hypothyroidism, unspecified (principal)
CPT/HCPCS: 36415; 84439; 84443

== ENCOUNTER 2022-02-25 12:34 | Outpatient (CLI) | payer BC, SELFPAY ==
--- NOTE | 2022-03-05 16:42 | WPDPFTINT ---
PFT Procedure Performed PFT Procedure Performed Spirometry with Pre/Post Bronchodilator Plethysmography (Lung Vol) Diffusing Cap (DLCO) Flow Vol Loop PFT Interpretation DOS: 02/25/2022 REQUESTING: Dr Sanchez REASON FOR TESTING: shortness of breath PULMONARY FUNCTION TESTS Results are reliable and reproducible. Spirometry: Pre bronchodilator FEV1 is 69% predicted, 2.4 L, mildly reduced. Pre bronchodilator FVC is 78%, 3.48 L, mildly reduced. The FEV1/FVC is 69%, within the normal range. RKU96-02% is 40% predicted, 1.25 L, reduced. After bronchodilator, there is a 3% increase in the FEV1, 71% predicted, 2.47 L, still below normal limits. The FVC is reduced by 3%, 76% predicted, 3.38 L, and this is below normal limits. The FEV1/ FVC ratio is 73% which is within the normal range. The ROR02-56% is 63%, 1.96 L, and this is now within the normal range. There is a 56% increase in the ZUA76-15% flows, 710 mL, which is significant. Lung volumes: Total lung capacity 99% predicted, 6.05 L, normal. FRC is 93%, 3.32 L, normal. ERV is 49%, 0.68 L, this is below normal limits. Residual volume is 115%, 2.57 L, normal. RV/TLC is increased, 42% consistent with air trapping. Airway resistance is 253%, increased. Diffusion: DLCO 83% normal. Flow volume loop: Mild scooping of the expiratory i\limb, and mild flattening of the inspiratory limb. IMPRESSION: There is a mild obstructive ventilatory impairment which is severe in the small airways air trapping, normal diffusion. There was a good response to bronchodilator in the small airways. In the proper clinical setting this may represent asthma Lawanda Matias MD
== END 2022-02-25 12:35 | disposition home or self-care (01) ==
LOC: ANHPFT 12:37
PROVIDERS: PCP Family Medicine; Visit Provider Internal Medicine Pulmonary Disease
DX: J47.9 Bronchiectasis, uncomplicated (principal); M41.9 Scoliosis, unspecified; R06.02 Shortness of breath
CPT/HCPCS: 94060; 94726; 94729

== ENCOUNTER 2022-10-16 08:11 | Emergency (ER) | payer BC, SELFPAY ==
[2022-10-16 08:23] VITALS: BP 96/62; PULSE 99; RESP 16; TEMP 36.5; O2SAT 98
--- NOTE | 2022-10-16 08:33 | ED.URI ---
HPI - URI/Sore Throat General Chief Complaint: Upper Respiratory Infection Stated Complaint: COLD/+ COVID TEST Time Seen by Provider: 10/16/22 08:36 Source: patient and RN notes reviewed Mode of arrival: ambulatory Limitations: no limitations History of Present Illness HPI Narrative: 52-year-old with history of type 1 diabetes presents with concern for chills, sweats, cough, runny nose, sore throat that started yesterday. She reports she has been having trouble keeping her blood sugars under control since she felt sick yesterday. She denies any known sick contacts, she has not taken any [id number] medications for her symptoms MD elicited complaint: cough and nasal congestion Related Data Allergies Allergy/AdvReac Type Severity Reaction Status Date / Time No Known Allergies Allergy Verified 10/16/22 08:27 Review of Systems Review of Systems: CONSTITUTIONAL: Reports malaise, chills, sweats EYES: Denies visual changes, redness, or discharge. ENT: Reports rhinorrhea, congestion, sore throat. Denies sinus pain, otalgia CARDIOVASCULAR: Denies chest pain, palpitations, or edema. RESPIRATORY: Reports cough. Denies dyspnea. GASTROINTESTINAL: Denies abdominal pain, nausea, vomiting, diarrhea SKIN: Denies rash or itching. MUSCULOSKELETAL: Denies myalgia. NEUROLOGIC: Denies headache. All systems reviewed & are unremarkable except as noted in HPI and below PMFSH Past Medical History Medical History DM I (diabetes mellitus, type I) HLD (hyperlipidemia) Hypothyroidism Rheumatoid arthritis Type 1 diabetes mellitus without complications Surgical History Surgical History History of foot surgery Family History Family History Father Family history of arthritis Mother Family history of heart disease in male family member before age 55 Other Family history of alcoholism Family history of osteoporosis Family history of seizure disorder Social History Social History Smoking status: Former smoker Second hand tobacco smoke exposure: No Alcohol intake: current Drinks per week: 4 Substance use: current Substance use type: marijuana Other substance usage details: edibles; 2x/week Lack of Transportation: No Lack of Food: Never True Current Housing: I Have Housing Concerned About Future Housing: No Difficulty Paying Gas/Electric Bills: No Difficulty Paying for Meds: No Currently Unemployed: No Difficulty w/ Childcare or Family Care: No Occupation/Education: occupation 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 There is no relevant family history pertinent to the presenting complaint Exam Narrative: GENERAL: Nontoxic appearing and in no acute distress. HEAD: Normocephalic EYES: PERRLA, conjunctivae clear ENT: Nares clear, clear discharge. Mucous membranes moist. TM pearly valdez with dull light reflex bilaterally; no tragal tenderness. Oropharynx not erythematous without lesions. Tonsils not enlarged and without exudate, no drooling, no hoarseness, no trismus, uvula midline. NECK: Supple. No lymphadenopathy CHEST: Clear to auscultation, breath sounds equal. No wheezing, rhonchi, rales, or stridor. No respiratory distress, speaks in full sentences. HEART: Regular rate and rhythm. No murmur heard. SKIN: Warm, dry, no rash. NEURO: Alert and oriented x3. PSYCH: Normal mood and affect Course Course Emergency Course: Patient is aware of diagnosis, understands and agrees to treatment plan. Anticipatory guidance given. Patient agrees to fol
== END 2022-10-16 08:50 | disposition home or self-care (01) ==
PROVIDERS: Emergency Provider Nurse Practitioner; PCP Family Medicine
DX: U07.1 COVID-19 (principal); E10.9 Type 1 diabetes mellitus without complications; E78.5 Hyperlipidemia, unspecified; E03.9 Hypothyroidism, unspecified; Z87.891 Personal history of nicotine dependence
CPT/HCPCS: 87426; 99213; C9803; G0463

== ENCOUNTER 2022-11-13 10:35 | Emergency (ER) | payer BC, SELFPAY ==
--- NOTE | ~2022-11-13 | XR_ITS ---
EXAMINATION: XR ankle LT min 3V DATE: 11/13/2022 10:52 INDICATION: Left ankle pain. TECHNIQUE: 4 views of left ankle were obtained. COMPARISON: Left tibia and fibula radiographs 09/15/2019 FINDINGS: Bone alignment is normal. No fracture. There is mild midfoot osteoarthritis. Again seen are old erosions of calcaneal tuberosity proximal to the attachment of Achilles tendon. There is medial ankle soft tissue swelling. IMPRESSION: 1. Mild midfoot osteoarthritis. Reviewed, dictated and finalized at location A.
[2022-11-13 10:42] VITALS: BP 121/74; PULSE 84; RESP 16; TEMP 36.4; O2SAT 100
--- NOTE | 2022-11-13 10:42 | ED.LOWEXIN ---
HPI - Extremity Injury (Lower) General Chief Complaint: Extremity Injury, Lower Stated Complaint: lt ankle injury Time Seen by Provider: 11/13/22 10:42 Source: patient Mode of arrival: ambulatory Limitations: no limitations History of Present Illness HPI Narrative: Donna is a 52-year-old female patient presenting to the clinic today with complaints left ankle injury/pain. She reports she injured her ankle however she does not remember how she did so. Having pain to the medial left ankle. History of surgery to this ankle back in the 90s. She denies any known hardware in the ankle. Related Data Allergies Allergy/AdvReac Type Severity Reaction Status Date / Time No Known Allergies Allergy Verified 10/16/22 08:27 Review of Systems Review of Systems: Pertinent positives per HPI. Patient denies any fever, chills, rash, headache, visual changes, dizziness, cough, runny nose, sore throat, shortness of breath, chest pain, palpitations, nausea, vomiting, diarrhea, constipation, abdominal pain, or any urinary issues. [facility] Past Medical History Medical History DM I (diabetes mellitus, type I) HLD (hyperlipidemia) Hypothyroidism Rheumatoid arthritis Type 1 diabetes mellitus without complications Surgical History Surgical History History of foot surgery Family History Family History Father Family history of arthritis Mother Family history of heart disease in male family member before age 55 Other Family history of alcoholism Family history of osteoporosis Family history of seizure disorder Social History Social History Smoking status: Former smoker Second hand tobacco smoke exposure: No Alcohol intake: current Drinks per week: 4 Substance use: current Substance use type: marijuana Other substance usage details: edibles; 2x/week Lack of Transportation: No Lack of Food: Never True Current Housing: I Have Housing Concerned About Future Housing: No Difficulty Paying Gas/Electric Bills: No Difficulty Paying for Meds: No Currently Unemployed: No Difficulty w/ Childcare or Family Care: No Occupation/Education: occupation 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 There is no relevant family history pertinent to the patient complaint. Exam Narrative: General: Well-developed, well nourished, in no apparent distress Head: Normocephalic, atraumatic. Cardio: Regular rate and rhythm, s1 and s2 normal, no murmur appreciated. Resp: Clear to auscultation bilaterally, no rhonchi, rales, wheezing or rubs. Musculoskeletal: No deformity,tender to palpation over the medial ankle, pain with plantar flexion against resistance as well as valgus and varus testing, grossly normal range of motion, muscle strength strong and equal, peripheral pulse strong, no edema, no cyanosis, normal gait and station Course Course Emergency Course: Portions of this record may have been created with voice recognition software. Level of Care: Express Care Visit Vital Signs Vital signs: Vital signs reviewed MDM - Extremity Injury (Lower) MDM Narrative Medical decision making narrative: At the time of visit patient is resting comfortably on the exam table. X-ray the right ankle was performed and was negative for any fracture or malalignment. Did show some mild midfoot osteoarthritis. Supportive measures were discussed with the patient she voiced understanding discharge instructions and agrees to treatment plan.
[2022-11-13 10:46] VITALS: BP 121/74; PULSE 84; RESP 16; TEMP 36.4; O2SAT 100
== END 2022-11-13 11:25 | disposition home or self-care (01) ==
PROVIDERS: Emergency Provider Nurse Practitioner Family; PCP Family Medicine
DX: M19.072 Primary osteoarthritis, left ankle and foot (principal); M25.572 Pain in left ankle and joints of left foot; Z87.891 Personal history of nicotine dependence; E11.9 Type 2 diabetes mellitus without complications; E78.5 Hyperlipidemia, unspecified; E03.9 Hypothyroidism, unspecified; M06.9 Rheumatoid arthritis, unspecified
CPT/HCPCS: 73610; 99213; G0463

== ENCOUNTER 2022-12-03 16:17 | Outpatient (CLI) | payer BC, SELFPAY ==
--- NOTE | ~2022-12-03 | CT_ITS ---
CT Scan of the Chest without Contrast: Clinical Indication: Pulmonary nodule, bronchiectasis Technique: Contiguous sections were acquired throughout the chest without intravenous contrast. Dose reduction technique was used on this scan by utilizing automated exposure control and iterative recon struction technique. The dose-length product (DLP) was 87.58 mGy-cm. COMPARISON: 11/26/2021 Findings: There is no evidence of any significant mediastinal, hilar or axillary lymphadenopathy. The mediastin al soft tissues appear normal. There is no evidence of pleural or pericardial effusion. Left upper lobe scarring and bronchiectatic change is stable from prior exam. Additional bronchiectat ic change in the immediate left perihilar region is also unchanged. Focal airspace opacities the righ t lung base are unchanged. Images through the upper abdomen reveal no abnormalities. Impression: Bronchiectatic change and chronic scarring in the left lung, stable from prior exam. Small focal airspace opacities the right lung base, stable from prior exam. Reviewed, dictated and finalized at [facility]. Impression: Bronchiectatic change and chronic scarring in the left lung, stable from prior exam. Small focal airspace opacities the right lung base, stable from prior exam.
== END 2022-12-03 16:18 | disposition home or self-care (01) ==
LOC: ANHIMG 16:21
PROVIDERS: PCP Family Medicine; Visit Provider Internal Medicine Pulmonary Disease
DX: R91.1 Solitary pulmonary nodule (principal); J47.9 Bronchiectasis, uncomplicated
CPT/HCPCS: 71250

== ENCOUNTER 2023-01-19 07:25 | Outpatient (CLI) | payer BC, SELFPAY ==
[2023-01-19 07:56] LABS: Alanine Aminotransferase 19 U/L (6-35); Albumin Level 4.1 g/dL (3.5-5.1); Alkaline Phosphatase 102 U/L (38-126); Anion Gap 3 mmol/L (8-16); Aspartate Amino Transferase 30 U/L (14-36); Bilirubin,Total 0.9 mg/dL (0.2-1.3); Blood Urea Nitrogen 19 mg/dL (7-17); Calcium 8.9 mg/dL (8.4-10.2); Carbon Dioxide 30 mmol/L (22-30); Chloride 105 mmol/L (98-107); Cholesterol 197 mg/dL (0-200); Estimated Glomerular Filt Rate > 60; Glucose 82 mg/dL (65-110); HDL Direct 87 mg/dL; Potassium 4.5 mmol/L (3.4-5.0); Sodium 138 mmol/L (137-145); Triglycerides 56 mg/dL (<150)
[2023-01-19 08:07] LABS: LDL Cholesterol Direct 86 mg/dL
[2023-01-19 08:22] LABS: Creatinine Urine 35.9 mg/dL
[2023-01-19 08:35] LABS: Microalbumin Urine Random < 6.0 mg/L (0-16.7)
[2023-01-19 08:36] LABS: MALB Creatinine Ratio < 16.7 mg/g (0-30)
[2023-01-19 09:25] LABS: Free T4 Free Thyroxine 2.19 ng/mL (0.78-2.19); Vitamin D 25 Hydroxy 20.5 ng/mL
== END 2023-01-19 07:26 | disposition home or self-care (01) ==
LOC: ANHLAB 07:26
PROVIDERS: PCP Family Medicine; Visit Provider Internal Medicine Endocrinology, Diabetes & Metabolism
DX: E10.9 Type 1 diabetes mellitus without complications (principal); E03.9 Hypothyroidism, unspecified; R79.89 Other specified abnormal findings of blood chemistry; E55.9 Vitamin D deficiency, unspecified; Z71.3 Dietary counseling and surveillance; Z96.41 Presence of insulin pump (external) (internal)
CPT/HCPCS: 36415; 80053; 80061; 82043; 82306; 82607; 84439; 84443

== ENCOUNTER 2023-01-19 08:01 | Outpatient (CLI) | payer BC, SELFPAY ==
--- NOTE | ~2023-01-19 | XR_ITS ---
Right foot Technique: AP, oblique, and lateral views were obtained. Clinical History: Polyarthritis Findings: No acute fracture or dislocation is seen. There are erosive changes involving all of the me tatarsal heads. There is probable joint space narrowing particularly involving the second through fif th MTP joints. Remaining osseous structures and joint spaces appear intact. Soft tissues are unremark able. Impression: Erosive changes and probable joint space narrowing diffusely involving the metatarsophalangeal joints . Findings are compatible with inflammatory arthropathy. Consider reactive arthritis, rheumatoid arth ritis, psoriatic arthritis.. Reviewed, dictated and finalized at location M. Impression: Erosive changes and probable joint space narrowing diffusely involving the meta tarsophalangeal joints. Findings are compatible with inflammatory arthropathy. Consider reactive arthritis, rheumatoid arthritis, psoriatic arthritis..
--- NOTE | ~2023-01-19 | XR_ITS ---
Bilateral Hands Technique: Bilateral PA, oblique, and lateral views, and ball-catcher's view were obtained. Clinical History: Polyarthritis Findings: No acute fracture or dislocation is seen. There is severe erosive osteoarthritis at the rig ht third PIP joint. There is moderate probable erosive osteoarthritis at the left fifth DIP joint. Th ere are probable erosive changes and joint space narrowing involving the bilateral radiocarpal joints and bilateral distal ulna. Additional probable erosive changes involving the bilateral proximal carp al rows. Soft tissues are unremarkable. Impression: Findings suspicious for inflammatory arthropathy involving the radiocarpal articulations and proximal carpal rows bilaterally, such as rheumatoid arthritis. Severe erosive osteoarthritis at the right third PIP joint. Moderate erosive osteoarthritis at the left fifth DIP joint. Reviewed, dictated and finalized at location . Impression: Findings suspicious for inflammatory arthropathy involving the radiocarpal zoe culations and proximal carpal rows bilaterally, such as rheumatoid arthritis. Severe erosive osteoarthritis at the right third PIP joint. Moderate erosive osteoarthritis at the left fifth DIP joint.
--- NOTE | ~2023-01-19 | XR_ITS ---
Left foot Technique: AP, oblique, and lateral views were obtained. Clinical History: Polyarthritis, pain Findings: No acute fracture or dislocation is seen. There is advanced osteoarthritis of the first met atarsophalangeal joint, with questionable superimposed medial erosion. There is postoperative change centered about the second PIP joint. Remaining osseous structures and joint spaces are preserved. Sof t tissues are unremarkable. Impression: Advanced probable osteoarthritis of the first metatarsophalangeal joint with questionable focal super imposed medial erosion. Postoperative change about the second PIP joint. Correlate with surgical history. Reviewed, dictated and finalized at location M. Impression: Advanced probable osteoarthritis of the first metatarsophalangeal joint with qu estionable focal superimposed medial erosion. Postoperative change about the second PIP joint. Correlate with surgical histor y.
== END 2023-01-19 08:02 | disposition home or self-care (01) ==
PROVIDERS: PCP Family Medicine
DX: M19.042 Primary osteoarthritis, left hand (principal); M19.041 Primary osteoarthritis, right hand; R93.6 Abnormal findings on diagnostic imaging of limbs
CPT/HCPCS: 73130; 73630

== ENCOUNTER 2023-03-27 15:47 | Emergency (ER) | payer BC, SELFPAY ==
--- NOTE | ~2023-03-27 | XR_ITS ---
EXAMINATION: XR finger 3rd LT min 2V DATE: 03/27/2023 16:21 INDICATION: Left hand third digit injury. TECHNIQUE: 3 views of left hand third digit were obtained. COMPARISON: None. FINDINGS: Bone alignment is normal. No fracture. There is mild osteoarthritis of third proximal and d istal interphalangeal joints. IMPRESSION: 1. No fracture or radiopaque foreign body. Reviewed, dictated and finalized at location E.
[2023-03-27 15:52] VITALS: BP 167/76; PULSE 90; RESP 16; TEMP 36.6; O2SAT 100
--- NOTE | 2023-03-27 17:50 | ED.WOUNDLAC ---
HPI - Wound/Laceration General Chief Complaint: Wound/Laceration Stated Complaint: laceration from knife left 3rd digit Time Seen by Provider: 03/27/23 16:06 Source: patient Mode of arrival: ambulatory Limitations: no limitations History of Present Illness HPI narrative: Patient is a 52-year-old female who presents to the ED with report of a laceration to her left third digit. 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 Unable to control bleeding at home which prompted her presentation. Denies any numbness or tingling. Tetanus up-to-date as of 2019. Related Data Allergies Allergy/AdvReac Type Severity Reaction Status Date / Time sulfadiazine Allergy Intermediate Hives Verified 03/21/23 16:30 Review of Systems Review of Systems: CONSTITUTIONAL: Denies fever, chills, or sweats. SKIN: See HPI. MUSCULOSKELETAL: See HPI. NEUROLOGIC: Denies tingling, numbness, or weakness. All systems reviewed & are unremarkable except as noted in HPI and below PMFSH Past Medical History Medical History Acquired hammertoe of right foot Body mass index (BMI) greater than 30 (02/13/19) Hallux valgus (acquired), unspecified foot HLD (hyperlipidemia) Hypertension Hypothyroidism Hypovitaminosis D Long-term use of immunosuppressant medication Lung nodule Major depressive disorder Mixed hyperlipidemia Postmenopausal Rheumatoid arthritis Scoliosis Skin laxity Type 1 diabetes mellitus without complications Ulcer of foot Surgical History Surgical History History of foot surgery S/P joint replacement Family History Family History Father Family history of arthritis Mother Family history of heart disease in male family member before age 55 Other Family history of alcoholism Family history of osteoporosis Family history of seizure disorder Social History Social History Smoking packs per day: 0.1 Smoking cigarettes per day: 2.0 Years smoked: 15 Smoking pack-years: 1.50 Smoking status: Former smoker Second hand tobacco smoke exposure: No Additional smoking assessment comments: off and on Alcohol intake: current Drinks per week: 2 Alcohol use details: 2-3 glasses of wine Substance use: current Substance use type: marijuana Other substance usage details: edibles; 2x/week Lack of Transportation: No Lack of Food: Never True Current Housing: I Have Housing Concerned About Future Housing: No Difficulty Paying Gas/Electric Bills: No Difficulty Paying for Meds: No Currently Unemployed: No Difficulty w/ Childcare or Family Care: No Occupation/Education: occupation 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 HEAD: Normocephalic, atraumatic. NECK: Supple. No adenopathy, no masses. RESPIRATORY: Airway patent, respirations nonlabored. CARDIOVASCULAR: Regular rate and rhythm without murmurs, rubs, or gallops. Radial pulses 2+ and equal bilaterally. MUSCULOSKELETAL: Moves all extremities. Strength/ROM intact without gross deformities. Full range of motion of right third digit. SKIN: Warm, dry, normal color. No rashes. 1.5cm linear laceration to extensor surface of left third digit between PIP and DIP joints. NEURO: A&O X3. Speech clear. Cranial nerves II-XII grossly intact. Steady gait. No ataxic movements. PSYCHIATRIC: Appropriate mood and affect. Normal interaction. Course Vital Signs Vital signs: Vital Signs
[2023-03-27 17:58] VITALS: BP 143/99; PULSE 81; RESP 20; O2SAT 99
== END 2023-03-27 18:11 | disposition home or self-care (01) ==
PROVIDERS: Emergency Provider Physician Assistant; PCP Family Medicine
DX: S61.213A Laceration without foreign body of left middle finger without damage to nail, initial encounter (principal); I10 Essential (primary) hypertension; E10.8 Type 1 diabetes mellitus with unspecified complications; E03.9 Hypothyroidism, unspecified; E78.2 Mixed hyperlipidemia; E55.9 Vitamin D deficiency, unspecified; M06.9 Rheumatoid arthritis, unspecified; Z96.60 Presence of unspecified orthopedic joint implant; Z79.4 Long term (current) use of insulin; W26.0XXA Contact with knife, initial encounter
CPT/HCPCS: 12001; 73140; 99283

== ENCOUNTER 2023-04-30 07:22 | Outpatient (CLI) | payer BC, SELFPAY ==
[2023-04-30 07:55] LABS: Basophils Absolute Auto 0.1 K/mm3 (0.0-0.1); Eosinophils Absolute Auto 0.1 K/mm3 (0-0.3); Eosinophils Percent Auto 1.1 % (0-4.4); Hematocrit 41.7 % (37.0-47.0); Hemoglobin 13.7 g/dL (12.0-15.0); Immature Granulocyte Absolute 0.02 K/mm3 (0.00-0.031); Immature Granulocyte Percent A 0.3 % (0-0.5); Lymphocytes Absolute Auto 1.63 K/mm3 (0.9-3.2); Lymphocytes Percent Auto 23.3 % (18.3-44.2); Mean Corpuscular HGB Conc 32.9 g/dl (32-36); Mean Corpuscular Hemoglobin 30.9 pg (26-34); Mean Corpuscular Volume 94.1 fl (80-100); Mean Platelet Volume 10.1 fl (7.4-10.4); Monocytes Absolute Auto 0.6 K/mm3 (0.1-0.6); Monocytes Percent Auto 8.4 % (2.6-8.5); Neutrophils Absolute Auto 4.6 K/mm3 (1.3-6.7); Neutrophils Percent Auto 65.9 % (45.5-73.1); Platelet Count Result 238 k/mm3 (150-375); Red Blood Count 4.43 M/mm3 (4.2-5.4); Red Cell Distribution Width 13.6 % (11.5-14.5)
[2023-04-30 08:07] LABS: Alanine Aminotransferase 19 U/L (6-35); Aspartate Amino Transferase 34 U/L (14-36); Estimated Glomerular Filt Rate > 60
== END 2023-04-30 07:23 | disposition home or self-care (01) ==
PROVIDERS: PCP Family Medicine
DX: Z79.899 Other long term (current) drug therapy (principal)
CPT/HCPCS: 36415; 82565; 84450; 84460; 85025

== ENCOUNTER 2023-05-06 06:58 | Outpatient (CLI) | payer BC, SELFPAY ==
[2023-05-06 07:37] LABS: Anion Gap 6 mmol/L (8-16); Blood Urea Nitrogen 14 mg/dL (7-17); Calcium 8.5 mg/dL (8.4-10.2); Carbon Dioxide 30 mmol/L (22-30); Chloride 102 mmol/L (98-107); Estimated Glomerular Filt Rate > 60; Glucose 128 mg/dL (65-110); HDL Direct 88 mg/dL; Potassium 4.2 mmol/L (3.4-5.0); Sodium 138 mmol/L (137-145)
[2023-05-06 07:48] LABS: LDL Cholesterol Direct 74 mg/dL
[2023-05-06 08:07] LABS: Free T4 Free Thyroxine 2.42 ng/mL (0.78-2.19); Thyroid Stimulating Hormone 0.286 uIU/mL (0.465-4.680)
== END 2023-05-06 06:59 | disposition home or self-care (01) ==
LOC: ANHLAB 06:59
PROVIDERS: PCP Family Medicine; Visit Provider Internal Medicine Endocrinology, Diabetes & Metabolism
DX: E10.9 Type 1 diabetes mellitus without complications (principal); E03.9 Hypothyroidism, unspecified
CPT/HCPCS: 36415; 80048; 83718; 83721; 84439; 84443

== ENCOUNTER 2023-06-01 12:39 | Outpatient (CLI) | payer BC, SELFPAY ==
--- NOTE | 2023-06-01 16:25 | WPDPFTINT ---
PFT Procedure Performed PFT Procedure Performed Spirometry with Pre/Post Bronchodilator Plethysmography (Lung Vol) Diffusing Cap (DLCO) Flow Vol Loop PFT Interpretation This is a pulmonary function test with pre and post-bronchodilator spirometry, plethysmography and diffusing capacity. The test was performed and results interpreted in accordance with the 2019 and 2005 ATS/ERS Task Force guidelines respectively using the Global Lung Function Initiative-2012 reference equations. Patient demonstrated good effort and cooperation. Reproducibility criteria were met. The quality of the pre bronchodilator spirometry maneuver was Grade A and post bronchodilator spirometry maneuver was Grade A. Findings: Spirometry: There is decreased maximal expiratory airflow at all lung volumes with concave expiratory flow tracing. The contour the inspiratory flow tracing is normal. The pre bronchodilator FVC is 3.29 L, 75% predicted. The pre bronchodilator FEV1 is 2.25 L, 65% predicted. The pre bronchodilator FEV1: FVC ratio 68%. The post bronchodilator FVC is 3.16 L, representing a 4% decrease. The post bronchodilator FEV1 is 2.34 L, representing a 4% increase. The post bronchodilator FEV1: FVC ratio 74%. Plethysmography: The total lung capacity is 5.67 L, 91% predicted. The functional residual capacity is 3.48 L, 97% predicted. The residual volume is 2.38 L, 106% predicted. Diffusing capacity: The diffusing capacity unadjusted for hemoglobin and carboxyhemoglobin is 25.2, 98% predicted. The diffusing capacity adjusted for alveolar volume is 4.88, 117% predicted. In comparison to previous pulmonary function testing on 02/25/2022 the post bronchodilator FVC is unchanged from 3.38 L to 3.16 L. The post bronchodilator FEV1 is unchanged from 2.47 L to 2.34 L. The total lung capacity is unchanged from 6.05 L to 5.67 L. The functional residual capacity is unchanged from 3.32 L to 3.48 L. The residual volume is unchanged from 2.57 L to 2.38 L. The diffusing capacity unadjusted for hemoglobin and carboxyhemoglobin is increased from 21.4 to 25.2. The diffusing capacity adjusted for alveolar volume is unchanged from 4.29 to 4.88. Impression: There is a moderate obstructive abnormality without significant improvement after inhaling a single dose of albuterol. The lung volumes are normal. The diffusing capacity is normal. In comparison to previous pulmonary function testing on 02/25/2022 there is a greater than anticipated time dependent increase in the diffusing capacity unadjusted for hemoglobin and carboxyhemoglobin with no significant change in the FVC, FEV1, total lung capacity, functional residual capacity, residual volume and diffusing capacity adjusted for alveolar volume. Clinical correlation is recommended.
== END 2023-06-01 12:40 | disposition home or self-care (01) ==
LOC: ANHPFT 12:40
PROVIDERS: PCP Family Medicine; Visit Provider Internal Medicine Pulmonary Disease
DX: J47.9 Bronchiectasis, uncomplicated (principal); R94.2 Abnormal results of pulmonary function studies
CPT/HCPCS: 94060; 94726; 94729

== ENCOUNTER 2023-06-24 11:34 | Outpatient (CLI) | payer BC, SELFPAY ==
[2023-06-24 12:45] LABS: Free T4 Free Thyroxine 1.92 ng/mL (0.78-2.19)
[2023-06-24 14:04] LABS: Thyroid Stimulating Hormone 0.412 uIU/mL (0.465-4.680)
== END 2023-06-24 11:35 | disposition home or self-care (01) ==
LOC: ANHLAB 11:35
PROVIDERS: PCP Family Medicine; Visit Provider Internal Medicine Endocrinology, Diabetes & Metabolism
DX: E03.9 Hypothyroidism, unspecified (principal); E10.65 Type 1 diabetes mellitus with hyperglycemia
CPT/HCPCS: 36415; 84439; 84443

== ENCOUNTER 2023-08-17 10:46 | Outpatient (CLI) | payer BC, SELFPAY ==
[2023-08-17 13:27] LABS: Free T4 Free Thyroxine 1.89 ng/mL (0.78-2.19)
== END 2023-08-17 10:47 | disposition home or self-care (01) ==
PROVIDERS: PCP Family Medicine; Visit Provider Internal Medicine Endocrinology, Diabetes & Metabolism
DX: E03.9 Hypothyroidism, unspecified (principal)
CPT/HCPCS: 36415; 84439; 84443

== ENCOUNTER 2023-08-17 10:58 | Outpatient (CLI) | payer BC, SELFPAY ==
--- NOTE | ~2023-08-17 | XR_ITS ---
Right wrist Technique: PA, oblique, lateral, and ulnar deviation views were obtained. Clinical History: Pain COMPARISON: 02/01/2023 Findings: No acute fracture or dislocation is seen. There is diffuse, advanced joint space narrowing at the radiocarpal and ulnar carpal joints, as well as at the right UVJ. Suspected erosive changes at the distal radius, distal ulna, and proximal carpal row. Soft tissues are unremarkable. 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 Findings are essentially stable from prior exam. Reviewed, dictated and finalized at location M. 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 Findings a re essentially stable from prior exam.
== END 2023-08-17 10:59 | disposition home or self-care (01) ==
PROVIDERS: PCP Family Medicine
DX: M25.531 Pain in right wrist (principal)
CPT/HCPCS: 73110

== ENCOUNTER 2023-09-12 10:36 | Emergency (ER) | payer BC, SELFPAY ==
[2023-09-12 11:00] VITALS: BP 177/87; PULSE 88; RESP 19; TEMP 36.2; O2SAT 100
[2023-09-12 11:25] LABS: Basophils Absolute Auto 0.1 K/mm3 (0.0-0.1); Basophils Percent Auto 1.3 % (0.2-1.2); Eosinophils Absolute Auto 0.1 K/mm3 (0-0.3); Eosinophils Percent Auto 0.7 % (0-4.4); Hematocrit 44.5 % (37.0-47.0); Hemoglobin 14.2 g/dL (12.0-15.0); Immature Granulocyte Absolute 0.01 K/mm3 (0.00-0.031); Immature Granulocyte Percent A 0.1 % (0-0.5); Lymphocytes Absolute Auto 2.03 K/mm3 (0.9-3.2); Mean Corpuscular HGB Conc 31.9 g/dl (32-36); Mean Corpuscular Hemoglobin 30.2 pg (26-34); Mean Corpuscular Volume 94.7 fl (80-100); Monocytes Absolute Auto 0.5 K/mm3 (0.1-0.6); Monocytes Percent Auto 7.7 % (2.6-8.5); Neutrophils Absolute Auto 4.1 K/mm3 (1.3-6.7); Neutrophils Percent Auto 60.2 % (45.5-73.1); Platelet Count Result 265 k/mm3 (150-375); Red Cell Distribution Width 13.7 % (11.5-14.5); White Blood Count 6.8 K/mm3 (4.5-10.0)
--- NOTE | 2023-09-12 11:34 | ED.GENADULT ---
HPI - General Adult General Chief complaint: Psychiatric Symptoms Stated complaint: S/I Time Seen by Provider: 09/12/23 11:14 History of Present Illness HPI narrative: 53-year-old female presenting to the emergency department for evaluation of feeling overwhelmed. Patient states she has had some increased emotional trauma over the last month. Patient does have prior history of suicidal ideation. Patient states he does have increased suicidal thoughts but has no specific plan. Patient reports she was at work today and felt overwhelmed. Related Data Home Medications Medication Instructions Recorded Confirmed adalimumab 40 mg/0.8 mL 40 mg subcut ONCE 05/10/23 08/23/23 subcutaneous pen kit (Humira Pen) Allergies Allergy/AdvReac Type Severity Reaction Status Date / Time sulfadiazine Allergy Intermediate Hives Verified 09/12/23 10:38 Review of Systems Review of Systems: All systems reviewed & are unremarkable except as noted in HPI and below PMFSH Past Medical History Medical History Acquired hammertoe of right foot Body mass index (BMI) greater than 30 (02/13/19) Hallux valgus (acquired), unspecified foot HLD (hyperlipidemia) Hypertension Hypothyroidism Hypovitaminosis D Long-term use of immunosuppressant medication Lung nodule Major depressive disorder Mixed hyperlipidemia Postmenopausal Rheumatoid arthritis Scoliosis Skin laxity Type 1 diabetes mellitus without complications Ulcer of foot Surgical History Surgical History History of foot surgery S/P joint replacement Family History Family History Father Family history of arthritis Mother Family history of heart disease in male family member before age 55 Other Family history of alcoholism Family history of osteoporosis Family history of seizure disorder Social History Social History Smoking packs per day: 0.1 Smoking cigarettes per day: 2.0 Years smoked: 15 Smoking pack-years: 1.50 Smoking status: Former smoker Second hand tobacco smoke exposure: No Additional smoking assessment comments: off and on Alcohol intake: current Drinks per week: 2 Alcohol use details: 2-3 glasses of wine Substance use: current Substance use type: does not use Other substance usage details: edibles; 2x/week Do You Feel Safe in your Home?: Yes Lack of Transportation: No Lack of Food: Never True Current Housing: I Have Housing Concerned About Future Housing: No Difficulty Paying Gas/Electric Bills: No Difficulty Paying for Meds: No Currently Unemployed: No Difficulty w/ Childcare or Family Care: No Occupation/Education: occupation 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 HEAD: normocephalic, atraumatic. EYES: PERRLA/EOMI, conjunctivae clear. NOSE: Normal no drainage EARS:TMS clear with good light reflex. THROAT: Pharynx clear, no exudate. NECK: Supple. No adenopathy, no masses. RESPIRATORY: Airway patent, respirations nonlabored. Clear to auscultation bilaterally, no rales, rhonchi, wheezing. CARDIOVASCULAR: Regular rate and rhythm without murmurs rubs or gallops. ABDOMINAL: Soft, nontender, nondistended, normal bowel sounds MUSCULOSKELETAL: Moves all extremities. Strength/ROM intact, No edema, No calf tenderness. NEURO: Alert. Cranial nerves II through XII intact. Good gait. Good coordination SKIN: Warm, dry. Normal Color PSYCHIATRIC: Flat affect Course Course Emergency Course: Patient was medically cleared and patient was evaluated by the crisis counselor. Linda
[2023-09-12 11:36] LABS: Alanine Aminotransferase 19 U/L (6-35); Albumin Level 4.4 g/dL (3.5-5.1); Alkaline Phosphatase 93 U/L (38-126); Anion Gap 8 mmol/L (8-16); Aspartate Amino Transferase 33 U/L (14-36); Bilirubin,Total 1.9 mg/dL (0.2-1.3); Blood Urea Nitrogen 16 mg/dL (7-17); Calcium 9.2 mg/dL (8.4-10.2); Carbon Dioxide 26 mmol/L (22-30); Chloride 103 mmol/L (98-107); Estimated CRCL calculation 91 ml/min; Estimated Glomerular Filt Rate > 60; Glucose 143 mg/dL (65-110); Sodium 137 mmol/L (137-145)
[2023-09-12 11:41] LABS: Appearance Urine Clear (Clear); Bacteria Urine None Seen /hpf; Bilirubin Urine Negative (Negative); Blood Urine Negative (Negative); Color Urine Yellow (Yellow); Glucose Urine UA Negative (Negative); Ketones Urine 1+ mg/dL (Negative); Leukocyte Esterase Ur 1+ LEU/UL (Negative); Need Manual Microscopic Reviewed; Nitrate Urine Negative (Negative); Non Pathogenic Casts 0-2; Protein Urine Negative (Negative); RBC Urine 0-2 /hpf (0-2); Specific Grav Ur 1.005 (1.001-1.035); Squamous Epithelial Cell Urine Occasional /hpf (Few); Urobilinogen Urine 0.2 mg/dL (<2.0); WBC Urine 0-5 /hpf
[2023-09-12] MEDS: LORazepam (*CRX) 0.5 MG TABLET PO (11:42)
[2023-09-12] MEDS: ONDANSETRON HCL ODT 4 MG TABLET PO (11:42)
[2023-09-12 11:43] LABS: Add Urine Microscopic? NO
[2023-09-12 11:44] LABS: Ethanol < 10 mg/dL (<10)
[2023-09-12 11:51] LABS: Amphetamine Screen Urine Negative (Negative); Barbiturate Screen Urine Negative (Negative); Benzodiazepines Screen Urine Negative (Negative); Cannabinoid Screen Urine Negative (Negative); Cocaine Screen Urine Negative (Negative); Methadone Screen Urine Negative (Negative); Opiate Screen Urine Negative (Negative); Phencyclidine Screen Urine Negative (Negative)
[2023-09-12 12:00] LABS: Influenza A QL RT-PCR Negative (Negative); Influenza B QL RT-PCR Negative (Negative); RSV RNA, RT-PCR Negative (Negative); SARS-CoV-2 RNA PCR Positive (Negative)
--- NOTE | 2023-09-12 12:32 | PC.NURSE ---
lunch tray ordered for pt
[2023-09-12 14:19] VITALS: BP 135/88; PULSE 97; RESP 17; O2SAT 99
== END 2023-09-12 14:22 | disposition home or self-care (01) ==
PROVIDERS: Emergency Provider Emergency Medicine; PCP Family Medicine
DX: F32.A Depression, unspecified (principal); U07.1 COVID-19; I10 Essential (primary) hypertension; E03.9 Hypothyroidism, unspecified; E10.9 Type 1 diabetes mellitus without complications; E78.2 Mixed hyperlipidemia; Z87.891 Personal history of nicotine dependence; Z79.899 Other long term (current) drug therapy
CPT/HCPCS: 36415; 80053; 80307; 81003; 84443; 85025; 87637; 99284; A9270

== ENCOUNTER 2023-09-16 14:05 | Outpatient (CLI) | payer BC, SELFPAY ==
[2023-09-16 16:57] LABS: HIV 1/2 Ab P24 Ag Result Negative (Negative)
[2023-09-19 13:42] LABS: Rapid Plasma Reagin Non-Reactive (NonReactive)
== END 2023-09-16 14:06 | disposition home or self-care (01) ==
PROVIDERS: PCP Family Medicine; Visit Provider Physician Assistant
DX: Z11.3 Encounter for screening for infections with a predominantly sexual mode of transmission (principal)
CPT/HCPCS: 36415; 86592; 86695; 86696; 86703; G0432

== ENCOUNTER 2024-02-14 07:18 | Outpatient (CLI) | payer BC, SELFPAY ==
[2024-02-14 08:15] LABS: Basophils Absolute Auto 0.1 K/mm3 (0.0-0.1); Basophils Percent Auto 1.7 % (0.2-1.2); Eosinophils Absolute Auto 0.3 K/mm3 (0-0.3); Hematocrit 40.6 % (37.0-47.0); Hemoglobin 13.2 g/dL (12.0-15.0); Immature Granulocyte Absolute 0.02 K/mm3 (0.00-0.031); Immature Granulocyte Percent A 0.3 % (0-0.5); Lymphocytes Absolute Auto 2.51 K/mm3 (0.9-3.2); Lymphocytes Percent Auto 42.2 % (18.3-44.2); Mean Corpuscular HGB Conc 32.5 g/dl (32-36); Mean Corpuscular Hemoglobin 31.1 pg (26-34); Mean Corpuscular Volume 95.5 fl (80-100); Mean Platelet Volume 10.3 fl (7.4-10.4); Monocytes Absolute Auto 0.6 K/mm3 (0.1-0.6); Monocytes Percent Auto 10.3 % (2.6-8.5); Neutrophils Absolute Auto 2.4 K/mm3 (1.3-6.7); Neutrophils Percent Auto 40.5 % (45.5-73.1); Platelet Count Result 263 k/mm3 (150-375); Red Blood Count 4.25 M/mm3 (4.2-5.4); Red Cell Distribution Width 13.5 % (11.5-14.5)
[2024-02-14 08:32] LABS: Alanine Aminotransferase 14 U/L (6-35); Aspartate Amino Transferase 30 U/L (14-36); CRP < 0.5 mg/dL (<1.0); Estimated Glomerular Filt Rate > 60
[2024-02-14 08:41] LABS: Erythrocyte Sedimentation Rate 21 mm/hr (0-20)
[2024-02-17 16:58] LABS: NIL 0.07 IU/mL; Quantiferon TB Plus, 1T NEGATIVE (NEGATIVE); TB1-NIL <0.00 IU/mL; TB2-NIL <0.00 IU/mL
== END 2024-02-14 07:19 | disposition home or self-care (01) ==
PROVIDERS: PCP Family Medicine
DX: M05.79 Rheumatoid arthritis with rheumatoid factor of multiple sites without organ or systems involvement (principal); Z79.899 Other long term (current) drug therapy; Z11.1 Encounter for screening for respiratory tuberculosis
CPT/HCPCS: 36415; 82565; 84450; 84460; 85025; 85652; 86140; 86480

== ENCOUNTER 2024-05-12 07:10 | Outpatient (CLI) | payer BC, SELFPAY ==
[2024-05-12 08:23] LABS: Basophils Absolute Auto 0.1 K/mm3 (0.0-0.1); Basophils Percent Auto 1.4 % (0.2-1.2); Eosinophils Absolute Auto 0.2 K/mm3 (0-0.3); Hematocrit 42.5 % (37.0-47.0); Hemoglobin 13.8 g/dL (12.0-15.0); Immature Granulocyte Absolute 0.02 K/mm3 (0.00-0.031); Immature Granulocyte Percent A 0.3 % (0-0.5); Lymphocytes Absolute Auto 2.99 K/mm3 (0.9-3.2); Lymphocytes Percent Auto 47.2 % (18.3-44.2); Mean Corpuscular HGB Conc 32.5 g/dl (32-36); Mean Corpuscular Hemoglobin 30.7 pg (26-34); Mean Corpuscular Volume 94.4 fl (80-100); Mean Platelet Volume 10.2 fl (7.4-10.4); Monocytes Absolute Auto 0.6 K/mm3 (0.1-0.6); Neutrophils Absolute Auto 2.5 K/mm3 (1.3-6.7); Neutrophils Percent Auto 39.1 % (45.5-73.1); Platelet Count Result 267 k/mm3 (150-375); Red Cell Distribution Width 14.2 % (11.5-14.5); White Blood Count 6.3 K/mm3 (4.5-10.0)
[2024-05-12 08:39] LABS: Alanine Aminotransferase 18 U/L (6-35); Alkaline Phosphatase 76 U/L (38-126); Anion Gap 6 mmol/L (4-12); Aspartate Amino Transferase 37 U/L (14-36); Bilirubin,Total 0.8 mg/dL (0.2-1.3); Blood Urea Nitrogen 15 mg/dL (7-17); CRP < 0.5 mg/dL (<1.0); Calcium 8.3 mg/dL (8.4-10.2); Carbon Dioxide 30 mmol/L (22-30); Chloride 103 mmol/L (98-107); Cholesterol 219 mg/dL (0-200); Creatine Kinase 320 U/L (30-135); Estimated Glomerular Filt Rate > 60; Glucose 93 mg/dL (65-110); HDL Direct 97 mg/dL; Magnesium 1.9 mg/dL (1.6-2.3); Potassium 4.1 mmol/L (3.4-5.0); Sodium 139 mmol/L (137-145); Triglycerides 63 mg/dL (<150)
[2024-05-12 08:48] LABS: LDL Cholesterol Direct 89 mg/dL
[2024-05-12 08:54] LABS: Creatinine Urine 141.8 mg/dL
[2024-05-12 09:00] LABS: Erythrocyte Sedimentation Rate 16 mm/hr (0-20)
[2024-05-12 09:05] LABS: MALB Creatinine Ratio < 4.2 mg/g (0-30); Microalbumin Urine Random < 6.0 mg/L (0-16.7)
[2024-05-12 09:08] LABS: Free T4 Free Thyroxine 1.57 ng/mL (0.78-2.19); Vitamin D 25 Hydroxy 24.8 ng/mL
[2024-05-15 13:17] LABS: NIL 0.02 IU/mL; Quantiferon TB Plus, 1T NEGATIVE (NEGATIVE); TB1-NIL <0.00 IU/mL
[2024-05-18 15:04] LABS: Aldolase 6.4 U/L (< OR = 8.1)
== END 2024-05-12 07:11 | disposition home or self-care (01) ==
PROVIDERS: PCP Family Medicine; Visit Provider Internal Medicine Endocrinology, Diabetes & Metabolism
DX: E03.9 Hypothyroidism, unspecified (principal); E10.649 Type 1 diabetes mellitus with hypoglycemia without coma; E78.5 Hyperlipidemia, unspecified; R79.89 Other specified abnormal findings of blood chemistry; M05.79 Rheumatoid arthritis with rheumatoid factor of multiple sites without organ or systems involvement; Z79.899 Other long term (current) drug therapy; M79.10 Myalgia, unspecified site
CPT/HCPCS: 36415; 80053; 80061; 82043; 82085; 82306; 82550; 82607; 83735; 84439; 84443; 85025; 85652; 86140; 86480

== ENCOUNTER 2024-05-26 10:37 | Outpatient (CLI) | payer BC, SELFPAY ==
--- NOTE | ~2024-05-26 | MR_ITS ---
EXAMINATION: MR shoulder RT wo con DATE: 05/26/2024 11:19 INDICATION: Right shoulder pain. TECHNIQUE: Magnetic resonance imaging (MRI) of the right shoulder was performed without intravenous c ontrast. Sequences included axial PD-weighted FS FSE, coronal oblique PD-weighted FS FSE and T2-weigh annmarie FS FSE, and sagittal oblique T2-weighted FS FSE and T1-weighted FSE. COMPARISON: Right shoulder radiographs 03/13/2024 FINDINGS: Coracoacromial arch: The acromion undersurface is flat in morphology (type I). There is severe acromioclavicular joint ost eoarthritis including inferiorly directed osteophytes. There is mild subacromial/subdeltoid bursitis. Rotator cuff: There is mild supraspinatus and infraspinatus tendinopathy. There is an interstitial tear of supraspi natus tendinosis distal attachment measuring 3 mm anterior to posterior by 3 mm proximal to distal by 50% tendon thickness. Teres minor tendon is normal. Subscapularis tendon is normal. There is no asym metric fatty atrophy of the rotator cuff muscle bellies. Biceps tendon and glenoid labrum: Biceps tendon is in bicipital groove. Intra-articular biceps tendon is normal. The glenoid labrum is intact. Fluid: There is no glenohumeral joint effusion. Bones/cartilage: The glenoid cartilage is normal. The humeral head cartilage is normal. There are tiny osteophytes. IMPRESSION: 1. Interstitial partial-thickness tear of supraspinatus tendon. 2. Mild subacromial/subdeltoid bursitis. 3. Severe acromioclavicular joint osteoarthritis. Reviewed, dictated and finalized at location A.
== END 2024-05-26 10:38 | disposition home or self-care (01) ==
LOC: ANHIMG 10:38
PROVIDERS: PCP Family Medicine; Visit Provider Nurse Practitioner Family
DX: M75.111 Incomplete rotator cuff tear or rupture of right shoulder, not specified as traumatic (principal); M75.51 Bursitis of right shoulder; M19.011 Primary osteoarthritis, right shoulder; M25.511 Pain in right shoulder; G89.29 Other chronic pain
CPT/HCPCS: 73221

== ENCOUNTER 2025-01-15 15:47 | Outpatient (CLI) | payer BC, SELFPAY ==
--- OUTSIDE RECORDS SUMMARY | 2025-01-15 15:51 | XMS_ITS ---
Author Organization [facility] Address [address] [place], [place] [address] Care Team Providers Care Discovery Guide Name Role Phone JC DICKINSON MD Primary Care Provider UnavailLatia Clarke Unavailable [phone] Jasmina Patrick Unavailable REASON FOR VISIT 4 mo f/u Encounters Encounter Location Date Provider Diagnosis [facility] [address], [address] [place], [place] [id number] 08/03/2024 Jasmina Patrick PLAN OF TREATMENT Next Appt Details Provider Name:Jasmina sanchez, 04/01/2025 11:30:00 AM, [address], [address], [place], [place], [id number],
--- OUTSIDE RECORDS SUMMARY | 2025-01-15 15:51 | XMS_ITS ---
Author Organization [facility] Address [address] [place], [place] [id number] Care Team Providers Care Wood Model Builder Name Role Phone JC DICKINSON MD Primary Care Provider UnavailLatia Clarke Unavailable [phone] Jasmina Patrick Unavailable ALLERGIES No Known Allergies REASON FOR VISIT [...] Date Provider Diagnosis [facility] [address], [address] [place], [place] [id number] 11/29/2024 Jasmina Patrick Rheumatoid arthritis with rheumatoid factor of multiple sites without organ or systems involvement M05.79 ; Right wrist pain M25.531 ; Other jail (current) drug therapy Z79.899 and Screening for tuberculosis Z11.1 ASSESSMENTS Encounter Date Diagnosis Assessment Notes Treatment Notes Treatment Clinical Notes 11/29/2024 Rheumatoid arthritis with rheumatoid factor of multiple sites without organ or systems involvement (ICD-10 - M05.79) 11/29/2024 Right wrist pain (ICD-10 - M25.531) 11/29/2024 Other jail (current) drug therapy (ICD-10 - Z79.899) 11/29/2024 Screening for tuberculosis (ICD-10 - Z11.1) PLAN OF TREATMENT Medication Medication Name Sig [...] Up: 4 Months, Reason: Provider Name:Jasmina sanchez, 04/01/2025 11:30:00 AM, [address], [place], [place], [id number], Procedure Notes * Category Sub-Category Detail Notes Injection Site right wrist Drug Injected Xylocaine [facility]: 50604 -485-57 lot # [id number] exp: 10/10 , Triamcinalone Acetonide [facility] 4958-8400-85 LOT: [id number] EXP: 2025-12 Dose 20 mg , 0.5 cc X1 IA Note Site was prepped and cleaned, needle inserted without difficulty, patient tolerated procedure well, without any complications Progress Notes * Examination Category Sub-Category Detail Notes General Constitutional: No acute distres s HEENT: PERRLA, Neck supple, Normal sclerae and [...] of Present Illness) Category Sub-Category Detail Notes Rheumatology Joint pain hand, wrist and ankle Joint swelling Fever Dyspnea/SOB fatigue Mild morning stiffness 1 hour infection rash Oral sores chest pain Physical Examination Category Sub-Category Detail Notes MDHAQ Summary Function (0-10):: PATIENT DID NO T COMPLETE Pain (0-10):: PATIENT DID NOT COMPLETE Patient Global Assessment of Disease Activity (0-10):: PATIENT DID NOT COMPLETE RAPID3 Score (0-30):: COULD NOT SCORE PATIENT DID NOT COMPLETE ALL CATEGORIES Physician Global Assessment of Disease Activity (0-10):: 3 Prognosis Very Good w/tx Erosive Damage No
--- OUTSIDE RECORDS SUMMARY | 2025-01-15 15:51 | XMS_ITS ---
Author Organization [facility] Address [address] [place], [place] [address] Care Team Providers Care Geospatial Developer Name Role Phone JC DICKINSON MD Primary Care Provider Latia Marks Unavailable [phone] MEDICATIONS Medication SIG (Take, Route, Fr equency, Duration) Notes Start Date End Date Status celecoxib 200 mg 1 cap(s) orally once a day for 30 day(s) 11/29/2024 Active Encounters Encounter Location Date Provider Diagnosis [facility] [address], [facility] [address] [place], [place] [id number] 11/29/2024 Latia Watters PLAN OF TREATMENT Medication Medication Name Sig Start Date Stop Date Notes celecoxib 200 mg 1 cap(s) orally once a day for 30 day(s) 11/29/2024 Next Appt Details Provider Name:Jasmina sanchez, 04/01/2025 11:30:00 AM, [address], [address], [place], [place], [phone],
--- OUTSIDE RECORDS SUMMARY | 2025-01-15 15:51 | XMS_ITS | Patient Health Record ---
Author Organization [facility] Address [address] [place], [place] [address] Care Team Providers Care Muck Hauler Name Role Phone JC DICKINSON MD Primary Care Provider Unavailseema MataisCheco gaosravanthi Unavailable [phone] Jasmina Patrick Unavailable ALLERGIES No Known Allergies RESULTS Component Value Reference Range Notes CREATININE Reviewed date:11/20/2024 04:21:59 PM Interpretation: Performing Lab:[facility] [address] [address] Regan Col[address]res [address] Notes/Report: FASTING:NO FASTING: NO CREATININE 0.76 0.50-1.03 mg/dL EGFR 92 > OR = 60 mL/min/1.73m2 AST Reviewed date:11/20/2024 04:21:59 PM Interpretation: Performing Lab:[facility] [place] [address] Administration Regan Colindres [address] Notes/Report: FASTING:NO FASTING: NO AST 21 10-35 U/L ALT Reviewed date:11/20/2024 04:21:59 PM Interpretation: Performing Lab:[facility] [place] [address] Administration Regan Colindres [address] Notes/Report: FASTING:NO FASTING: NO ALT 15 6-29 U/L SED RATE BY MODIFIED WESTERG JAVI Reviewed date:11/20/2024 04:21:59 PM Interpretation: Performing Lab:[facility] [place] [address] [facility] Regan Colindres [address] Notes/Report: FASTING:NO FASTING: NO SED RATE BY MODIFIED WESTERGREN 24 < OR = 30 mm/h CBC (INCLUDES DIFF/PLT) Reviewed date:11/20/2024 04:21:59 PM Interpretation: Performing Lab:[facility] [place] [address] Administration Regan Colindres [place] [address] [address] Notes/Report: FASTING:NO FASTING: NO WHITE BLOOD CELL COUNT 9.3 3.8-10.8 Thousand/ uL RED BLOOD CELL COUNT 4.40 3.80-5.10 Million/uL HEMOGLOBIN 13.6 11.7-15.5 g/dL HEMATOCRIT 42.2 35.0-45.0 % MCV 95.9 80.0-100.0 fL MCH 30.9 27.0-33.0 pg MCHC 32.2 32.0-36.0 g/dL For adults, a slight decrease in the calculated MCHC value (in the range of 30 to 32 g/dL) is most likely not clinically significant; however, it should be interpreted with caution in correlation with other red cell parameters and the patient's clinical condition. RDW 13.5 11.0-15.0 % PLATELET COUNT 271 140-400 Thousand/uL MPV 10.6 7.5-12.5 fL ABSOLUTE NEUTROPHILS 5561 7851-6199 cells/uL ABSOLUTE LYMPHOCYTES 2688 850-3900 cells/uL ABSOLUTE MONOCYTES 716 200-950 cells/uL ABSOLUTE EOSINOPHILS 223 15-500 cells/uL ABSOLUTE BASOPHILS 112 0-200 cells/uL NEUTROPHILS 59.8 LYMPHOCYTES 28.9 MONOCYTES 7.7 EOSINOPHILS 2.4 BASOPHILS 1.2 C-REACTIVE PROTEIN Reviewed date:11/20/2024 04:21:59 PM Interpretation: Performing Lab:[facility] [place] [address] [address] Regan Colindres [place] [address] [facility] Ward Notes/Report: FASTING:NO FASTING: NO C-REACTIVE PROTEIN <5.0 <8.0 mg/L REASON FOR REFERRAL No Information MEDICATIONS Medication SIG (Take, Route, Frequency, Duration) Notes Start Date End Date Status Fiasp 100 units/mL as directed subcutan eously 3 times a day (before meals) Active levothyroxine 125 mcg (0.125 mg) 1 tab(s) orally once a day A ctive pravastatin 10 mg 1 tab(s) orally once a day Active celecoxib 200 mg 1 cap(s) orally once a day for 30 day(s) 11/29/2024 Active Humira Pen 40 mg/0.4 mL 40mg subcutaneou sly every other week Active SOCIAL HISTORY Tobacco Use: Social History Observation Description Date Details (start date - stop date) Former Smoker NA - NA Sex Assigned At : Social History Observation Description Sex Assigned At Unknown Tobacco Use: Question Answer Notes Smoking Status former smoker PROBLEMS Problem Type ICD Code Onset Dates Problem Status W/U Status Risk SNOMED Code Notes Problem Polyarthritis (M13.0) Active confirmed 72487407 Problem Right wrist pain (M25.531) Active confirmed 626537460985444 Problem Rheumatoid arthritis with positive rheumatoid factor, involving unspecified site (M05.9) Active confirmed 556470501 Problem Rheumatoid arthritis with rheumatoid factor of multiple sites without organ or systems involvement (M05.79) Active confirmed 992260400 Problem Other inhalation therapy aides teacher (current) drug therapy (Z79.899) Active confirmed 854551157 Problem Screening for tuberculosis (Z11.1) Active confirmed 131331193 VITAL SIGNS Heart Rate 77 /min 11/29/2024 Blood pressure diastolic 92 mm Hg 11/29/2024 Height 72 in 11/29/2024 Blood pressure systolic 158 mm Hg 11/29/2024 Weight 210 lbs 11/29/2024 BMI 28.48 kg/m2 11/29/2024 PROCEDURES Procedure Date Ordered Date Performed Result Body Sit e Nerve Conduction Study 03/30/2024 N/A EMG 03/30/2024 N/A Joint Injection-wrist, right 11/29/2024 N/A Encounters Encounter Location Date [facility] [address] [place], [place] [phone] 03/28/2024 Jasmina Scheidemantel [facility] [address] [facility], [address] [place], [place] [id number] 03/30/2024 Jasmina Scheidemantel Rheumatoid arthritis with rheumatoid factor of multiple sites without organ or systems involvement M05.79 ; Myalgia M79.10 ; Other prison (current) drug therapy Z79.899 and Screening for tuberculosis Z11.1 [facility] [address], [address] [place], [place] [id number] 08/03/2024 Jasmina Scheidemantel [facility] [address], [address] [id number] 08/02/2024 Jasmina Scheidemantel Rheumatoid arthritis with rheumatoid factor of multiple sites without organ or systems involvement M05.79 and Other prison (current) drug therapy Z79.899 [facility] [address], [address] [id number] 11/29/2024 Jasmina Scheidemantel Rheumatoid arthritis with rheumatoid factor of multiple sites without organ or systems involvement M05.79 ; Right wrist pain M25.531 ; Other prison (current) drug therapy Z79.899 and Screening for tuberculosis Z11.1 [facility] [address], [address] [id number] 03/30/2024 Akgun Janene [facility] [address] [facility], [address] [id number] 04/03/2024 Akgun Janene [facility] [address] [facility], [address] [id number] 04/20/2024 Akgun Janene [facility] [address], [address] [id number] 06/19/2024 Akgun Janene [facility] [address], [address] [id number] 06/19/2024 Akgun Janene Rheumatoid arthritis with rheumatoid factor of multiple sites without organ or systems involvement M05.79 [facility] [address], [address] [id number] 11/29/2024 Akgun Janene [facility] [address] [facility], [address] [id number] 04/02/2024 Akgun Janene [facility] [address] [facility], [address] [id number] 05/29/2024 Akgun Janene [facility] [address] [facility], [address] [id number] 05/31/2024 Latia Matiase ASSESSMENTS Encounter Date Diagnosis Assessment Notes Treatment Notes Treatment Clinical Notes 03/30/2024 Rheumatoid arthritis with rheumatoid factor of multiple sites without organ or systems involvement (ICD-10 - M05.79) 03/30/2024 Myalgia (ICD-10 - M79.10) 08/02/2024 Other inhalation therapy aides teacher (current) drug therapy (ICD-10 - Z79.899) 08/02/2024 Rheumatoid arthritis with rheumatoid factor of multiple sites without organ or systems involvement (ICD-10 - M05.79) 11/29/2024 Rheumatoid arthritis with rheumatoid factor of multiple sites without organ or systems involvement (ICD-10 - M05.79) 11/29/2024 Right wrist pain (ICD-10 - M25.531) 06/19/2024 Rheumatoid arthritis with rheumatoid factor of multiple sites without organ or systems involvement (ICD-10 - M05.79) 03/30/2024 Other prison (current) drug therapy (ICD-10 - Z79.899) 11/29/2024 Other inhalation therapy aides teacher (current) drug therapy (ICD-10 - Z79.899) 03/30/2024 Screening for tuberculosis (ICD-10 - Z11.1) 11/29/2024 Screening for tuberculosis (ICD-10 - Z11.1) PLAN OF TREATMENT Pending Test Test Name Order Date AST (SGOT) 11/30/2023 AST (SGOT) 11/29/2024 AST (SGOT) 04/21/2023 AST (SGOT) 03/30/2024 CPK Total,Serum 03/30/2024 Creatinine, Serum 11/30/2023 Creatinine, Serum 11/29/2024 Creatinine, Serum 04/21/2023 Creatinine, Serum 03/30/2024 Magnesium, Serum 03/30/2024 ALT (SGPT) 03/30/2024 ALT (SGPT) 11/30/2023 ALT (SGPT) 11/29/2024 ALT (SGPT) 04/21/2023 Aldolase 03/30/2024 CBC With Differential/Platelet 4 CBC With Differential/Platelet 4 CBC With Differential/Platelet 5 CBC With Differential/Platelet 3 Sed Rate - Westergren 03/30/2024 Sed Rate - Westergren 11/30/2023 Sed Rate - Westergren 11/29/2024 C-Reactive Protein, Quant 11/30/2023 C-Reactive Protein, Quant 11/29/2024 C-Reactive Protein, Quant 03/30/2024 VITAMIN B12 03/30/2024 Nerve Conduction Study 03/30/2024 X ray : Hand left- outside order 023 X ray : Hand right- outside order 2022 Joint Injection-wrist, right 11/29/2024 Joint Injection-wrist, right 02/03/2023 X ray : Foot Left- outside order 023 X ray : Foot Right- outside order 2022 Lab slip given 11/29/2024 Lab slip given 04/21/2023 EMG 03/30/2024 QUANTIFERON(R)-TB GOLD PLUS, 1 TUBE 11/13 QUANTIFERON(R)-TB GOLD PLUS, 1 TUBE 03/15 QUANTIFERON(R)-TB GOLD PLUS, 1 TUBE 11/13 Future Test Test Name Order Date Lab slip given 08/02/2024 AST (SGOT) 08/30/2024 Creatinine, Serum 08/30/2024 ALT (SGPT) 08/30/2024 CBC With Differential/Platelet Sed Rate - Westergren 08/30/2024 C-Reactive Protein, Quant 08/30/2024 Next Appt Details Provider Name:Jasmina sanchez, 04/01/2025 11:30:00 AM, [address], [address], [place], [place], [id number], Insurance Providers Payer Name Payer Address Payer Phone Subscriber Number Group Number Insured Name Patient Relationship to Insured Coverage Start Date Coverage End Date Vandana Willett [address] [place] [address] [id number] Donna Bocanegra Self - patient is the insured 8 MEDICAL (GENERAL) HISTORY Medical History History ICD Code diabetes type 1 depression thyroid disease high blood pressure bronchitis Surgical History Surgery Date(Month/Year) foot surgery(s) C section
--- OUTSIDE RECORDS SUMMARY | 2025-01-15 15:51 | XMS_ITS | Clinical Summary ---
Author Organization [facility] [place] Address [address] [address] [address] Care Team Providers Care Publicity Writer Name Role Phone Unavailable Primary Care Provider Unavailabl e Allergies No known active allergies Active Problems No known active problems Encounters Date Type Department Care Team Description 01/08/2025 External Device Data [facility] ABSTRACTION Provider, Abstract 01/02/2025 External Device Data [facility] Provider, Abstract 01/01/2025 External Device Data [facility]CTION Provider, Abstract 12/18/2024 External Device Data [facility] Provider, Abstract 10/31/2024 External Device Data [facility]STRACTION Provider, Abstract 10/24/2024 External Device Data [facility]STRACTION Provider, Abstract 10/23/2024 External Device Data [facility]STRA[facility] Provider, Abstract 10/20/2024 External Device Data [facility]STRACTION Provider, Abstract 10/19/2024 External Device Data [facility] ABSTRACTION Provider, Abstract 10/17/2024 External Device Data [facility]STRACTION Provider, Abstract from Last 3 Months Social History Tobacco Use Types Packs/Day Years Used Date Smoking Tobacco: Never Assessed Comments Unknown Sex and Gender Information Value Date Recorded Sex Assigned at Not on file Legal Sex Female 2:06 PM CDT Gender Identity Not on file Sexual Orientation Not on file Last Filed Vital Signs Vital Sign Reading Time Taken Comments Blood Pressure 118/78 02/15/2021 2:18 PM CDT Pulse 89 02/15/2021 2:18 PM CDT Temperature 36.9 C (98.4 F) 02/15/2021 2:18 PM CDT Respiratory Rate - - Oxygen Saturation 97% 02/15/2021 2:18 PM CDT Inhaled Oxygen Concentration - - Weight 78.9 kg (174 lb) 02/15/2021 2:18 PM CDT Height 182.9 cm (6') 02/15/2021 2:18 PM CDT Body Mass Index 23.6 02/15/2021 2:18 PM CDT Plan of Treatment Health Maintenance Due Date Last Done Comments DTAP/TDAP/TD VACCINES (1 - Tdap) 1988 HEPATITIS B VACCINES (1 of 3 - 19+ 3-dose series) 07/15 HPV/Cotest (21-29) 1990 CERVICAL CANCER SCREENING 1999 HPV/Cotest (30-65) 1999 PAP SMEAR 1999 BREAST CANCER SCREENING 2009 COLORECTAL SCREENING 2014 Colorectal Cancer Screening 2014 FIT-DNA Q 3 years 2014 FIT/FOBT Q 1 year 2014 Flex Sig/CT Colonography Q 5 years 2014 ZOSTER VACCINE (1 of 2) 2019 INFLUENZA VACCINE (#1) 2024 Insurance [facility] [employer]/TRUE BLUE PPO
--- OUTSIDE RECORDS SUMMARY | 2025-01-15 15:51 | XMS_ITS | Continuity of Care Document ---
Author Organization [facility] Address [address] [place] [address] Phone Care Team Providers Care Space And Storage Clerk Name Role Phone Geneva Lopez PA-C Unavailable Unavailable Medications Medication Instructions Dosage Effective Dates (start - stop) Status Comments Levothroid 125 mcg Tab take 1 tablet (125MCG) by oral route every day - Active Lantus 100 unit/mL Sub-Q inject by subcutaneous route as per insulin protocol 0.00 - Active PT USES 32 UNITS QHS.REQUESTED THROUGH DRUG [facility] Humalog 100 unit/mL Sub-Q inject by subcutaneous route as per insulin sliding scale protocol - Active take 2u every am, take 0 u per 12-15 carbs if FBS 80-200, take 1 u per 12-15 carbs if FBS 200-250, TAKE 2 U PER 12-15 carbs if FBS 250-300, take 3 u per 12-15 carbs if FBS is 300-350, and of FBS >350 call provider tramadol 50 mg Tab take 1 tablet (50MG) by oral route every 6 hours as needed for PAIN 50 MG - Active TOTAL OF 6 FILLS trazodone 50 mg Tab TAKE 1-1/2 TABS PO QHS - Active total of 12 months Plaquenil 200 mg Tab 1T PO BID 200 MG - Active total of 12 months Wellbutrin SR 150 mg Tab take 1 tablet (150MG) by oral route 2 times every day 150 MG - Active lancets to check bs up to 8 times daily - Active Accu-Chek Amelia Strips - Active PT IS TO CHECK BS UP TO 8 TIMES DAILYRX PROVIDED FOR MAIL ORDER Levothroid 125 mcg Tab take 1 tablet (125MCG) by oral route every day - No Longer Active Procedures Procedure Date MEASURE BLOOD OXYGEN LEVEL MEASURE BLOOD OXYGEN LEVEL MEASURE BLOOD OXYGEN LEVEL MEASURE BLOOD OXYGEN LEVEL CYTOPATH, C/V, THIN LAYER MEASURE BLOOD OXYGEN LEVEL DRAINAGE OF SKIN ABSCESS MEASURE BLOOD OXYGEN LEVEL ROUTINE VENIPUNCTURE MEASURE BLOOD OXYGEN LEVEL MEASURE BLOOD OXYGEN LEVEL MEASURE BLOOD OXYGEN LEVEL DRUG SCREEN, QUALITATE/MULTI Advance Directives Directive Yes / No Effective Date File Name No Information Encounters Encounter Description Practice Location Reason(s) For Visit Diagnoses Date Provider Providers Copied on Encounter [facility], [address] [place] [address], [facility], tel:[phone] [place] No Information 3 Felicitasema Bean. [address] [place] [address], [facility], . tel:[phone] [facility], [address] [place] [address], [facility], tel:[phone] [place] No Information 3 Jessica Bean. [address] [place] [address], . tel:[phone] [facility], [address] [place] [address], [facility], tel:[phone] [facility] No Information 3 No Information [facility], [address] [place] [address], [facility], tel:[phone] [facility] RX FOR THYROID LABS (chief complaint) Hypothyroidis m 2 No Information [facility], [address] [place] [address], tel:[phone] [facility] No Information 2 No Information [facility], [address] [place] [address], [address], tel:[phone] [facility] No Information 2 No Information [facility], [address] [place] [address], [facility], [place] tel:[phone] [facility] medication refill (chief complaint) Diabetes mellitus without mention of complication, type I [juvenile type], not stated as uncontrolledU nspecified acquired hypothyroidis mRheumatoid arthritisDiab etes mellitus without mention of complication, type I [juvenile type], not stated as uncontrolledU nspecified acquired hypothyroidis mRheumatoid arthritisDepr essive disorder, not elsewhere classified 2 No Information [facility], [address] [place] [address], [facility], tel:[phone] [facility] RX FOR (chief complaint) Diabetes mellitus without mention of complication, type I [juvenile type], not stated as uncontrolledU nspecified acquired hypothyroidis 2 No Information [facility], [address] [place] [address], [facility], [place] tel:[phone] [facility] No Information 2 No Information [facility], [address] [place] [address], [facility], tel:[phone] [facility] med refill (chief complaint) Diabetes mellitus without mention of complication, type I [juvenile type], not stated as uncontrolledU nspecified acquired hypothyroidis 2 No Information [facility], [address] [place] [address], [address], [place] tel:[phone] [facility] rx for labs (chief complaint) Diabetes mellitus without mention of complication, type I [juvenile type], not stated as uncontrolled 2 No Information [facility], [address] [place] [address], [address], [place] tel:[phone] [facility] follow up arthritis (chief complaint) Rheumatoid arthritisRheu matoid arthritisPain in joint involving hand 2 No Information [facility], [address] [place] [address], [address], [place] tel:[phone] [facility] pap (chief complaint) Routine gynecological examinationSc reening for malignant neoplasms of the cervixDiabete s mellitus without mention of complication, type I [juvenile type], not stated as uncontrolledU nspecified acquired hypothyroidis m 1 No Information [facility], [address] [place] [address], [address], [place] tel:[phone] [facility] fasting labs (chief complaint)sydney mp (chief complaint)st opped medications (chief complaint) Diabetes mellitus without mention of complication, type I [juvenile type], not stated as uncontrolledR heumatoid arthritisMajo r depressive affective disorder, single episode, moderate degreeCarbunc le and furuncle of unspecified site 1 No Information [facility], [address] [place] [address], [address], [place] [phone] [facility] lab follow up (chief complaint)di scuss meds (chief complaint)de pression (chief complaint) Diabetes mellitus without mention of complication, type I [juvenile type], not stated as uncontrolledM ajor depressive affective disorder, single episode, moderate degreeUnspeci fied acquired hypothyroidis mRheumatoid arthritisThor acogenic scoliosis 1 No Information [facility], [address] [place] [address], [address], tel:[phone] [facility] labs (chief complaint) Diabetes mellitus without mention of complication, type I [juvenile type], not stated as uncontrolled 1 No Information [facility], [address] [place] [address], [address], [place] tel:[phone] [facility] follow up (chief complaint) Major depressive affective disorder, single episode, moderate degreeDiabete s mellitus without mention of complication, type I [juvenile type], not stated as uncontrolledU nspecified acquired hypothyroidis mRheumatoid arthritis 1 No Information [facility], [address] [place] [address], [address], tel:[phone] [facility] follow up depression (chief complaint) Abnormal pupillary function, unspecifiedMa pamela depressive affective disorder, single episode, moderate degreeDiabete s mellitus without mention of complication, type I [juvenile type], not stated as uncontrolled No Information [facility], [address] [place] [address], [address], tel:[phone] [facility] FOLLOW UP FROM THE MEDICAL CENTER (chief complaint) Major depressive affective disorder, single episode, moderate degreeDiabete s mellitus without mention of complication, type I [juvenile type], not stated as uncontrolledU nspecified acquired hypothyroidis mRheumatoid arthritisWhee miley 1 No Information Family History Family Member Type Diagnosis Age At Onset Problem (finding) Family history of Diabe chintan mellitus Problem (finding) Family history of alcoh olism Problem (finding) Family history of osteo arthritis Problem (finding) Family history of thyro id disease Payers Payer name Insurance type Covered republican ID Authoriza tion(s) No Information Social History Type Description Quantity Date Captured Comments Sex Female Smoking Status No Information Sexual Orientation Straight or heterosexual Chief Complaint And Reason For Visit No Information Reason For Referral Reason For Referral No Information Plan Of Treatment Date Type Action Status Goal Breast exam. Due on 011 due Goal Mammogram. Due on 1 due Goal TD Vaccine. Due on 13 due Goal PAP. Due on due Goal Lipid Panel. Due on 012 due Goal AUTO RADIATOR MECHANIC exam. Due on due Goal H&P. Due on due Goal Urine Microalbumin. Due on due Goal Foot Exam. Due on 2 due Goal Eye Exam. Due on due Goal Hemoglobin A1C. Due on due Goal BMP fasting. Due on 011 due Goal TSH. Due on due History Of Present Illness Encounter Date Complaint History Of Prese nt Illness No Information Functional Status Date Functional Assessmen t No Information Instructions Date Instruction Additional Infor sabrina Renew medications Renew medications Order labs/studies Order consults Prescribe medications Review medications Review medication side effects Call if symptoms persist Prescribe medications Renew medications Review medications Review medication side effects Renew medications Renew medications Assessments Type Assessment Date No Information Patient Care Teams Name Effective Dates (start - stop) Status Members No Information
[2025-01-15 16:51] LABS: Creatinine Urine 48.7 mg/dL
[2025-01-15 17:06] LABS: Free T4 Free Thyroxine 1.67 ng/dL (0.78-2.19); Vitamin D 25 Hydroxy 24.2 ng/mL
[2025-01-15 17:22] LABS: Alanine Aminotransferase 20 U/L (6-35); Albumin Level 4.5 g/dL (3.5-5.1); Alkaline Phosphatase 98 U/L (38-126); Anion Gap 6 mmol/L (4-12); Aspartate Amino Transferase 37 U/L (14-36); Bilirubin,Total 1.4 mg/dL (0.2-1.3); Blood Urea Nitrogen 19 mg/dL (7-17); Calcium 9.3 mg/dL (8.4-10.2); Carbon Dioxide 24 mmol/L (22-30); Chloride 106 mmol/L (98-107); Cholesterol 286 mg/dL (0-200); Estimated Glomerular Filt Rate > 60; Glucose 130 mg/dL (65-110); Sodium 136 mmol/L (137-145); Total Protein 8.7 g/dL (6.3-8.2); Triglycerides 55 mg/dL (<150)
[2025-01-15 17:33] LABS: LDL Cholesterol Direct 108 mg/dL
[2025-01-15 17:58] LABS: Microalbumin Urine Random < 6.0 mg/L (0-16.7)
[2025-01-15 17:58] LABS: HDL Direct 157 mg/dL
[2025-01-15 17:59] LABS: MALB Creatinine Ratio < 12.3 mg/g (0-30)
== END 2025-01-15 15:48 | disposition home or self-care (01) ==
LOC: ANHLAB 15:49
PROVIDERS: PCP Family Medicine; Visit Provider Nurse Practitioner Family
DX: E10.9 Type 1 diabetes mellitus without complications (principal); E78.5 Hyperlipidemia, unspecified; I10 Essential (primary) hypertension; R79.89 Other specified abnormal findings of blood chemistry
CPT/HCPCS: 36415; 80053; 80061; 82043; 82306; 82607; 84439; 84443

== ENCOUNTER 2025-02-01 15:20 | Outpatient (CLI) | payer BC, SELFPAY ==
--- NOTE | 2025-02-01 15:33 | ECG_ITS ---
Test Date: 2025-02-01 15:41:18 Measurements Intervals [place] Rate: 70 P: 66 TX: 157 QRS: 10 QRSD: 100 T: 47 QT: 369 QTc: 399 Interpretive Statements SINUS RHYTHM POSSIBLE LEFT ATRIAL ENLARGEMENT INCOMPLETE RIGHT BUNDLE BRANCH BLOCK BORDERLINE ECG No previous ECG available for comparison Electronically Signed On 02-01-2025 15:51:53 CDT by Jakob Dallas D.O.
== END 2025-02-01 15:21 | disposition home or self-care (01) ==
PROVIDERS: PCP Family Medicine; Visit Provider Family Medicine
DX: Z01.818 Encounter for other preprocedural examination (principal); E10.9 Type 1 diabetes mellitus without complications; I45.19 Other right bundle-branch block
CPT/HCPCS: 93005

== ENCOUNTER 2025-02-19 00:54 | Day surgery (SDC) | payer BC, SELFPAY ==
[2025-02-12 16:41] VITALS: BMI 28.5
--- NOTE | 2025-02-12 16:50 | SUR.PREOP ---
Report to the Outpatient Waiting Room, entrance under the green pavilion located off [address], at time 0630 on date 02/19/25. Planned Procedure Time: 0830.? Time changes happen often and if your time is changed the preop area will call you the afternoon before. - You and your visitor will be asked to self-screen and do not enter if you have any COVID symptoms. Please call surgeon if you need to reschedule. - A mask is optional within the hospital at this time. Patients may have clear liquids (water, carbonated beverages, clear teas, apple juice) until 3 hours prior to surgery with a maximum of 20 ounces. - No food from midnight until time of surgery and no smoking, or chewing tobacco (or any form of nicotine). No chewing gum, candy or mints. - Infants may have breast milk until 4 hours before surgery, formula 6 hours prior to surgery. - Children will be allowed to drink immediately following surgery.? If applicable, please bring a bottle or sippy cup to assist with drinking. Juice, water, soda, and popsicles are readily available.? For infants on formula, please bring formula the day of surgery.? Pacifiers are allowed. Take only the following medications with a SIP of water on the morning of surgery: levothyroxine DO NOT STOP ANY OF YOUR OTHER PRESCRIPTION MEDICATIONS PRIOR TO SURGERY EXCEPT THE FOLLOWING Hold all vitamins and supplements for 3 days per anesthesiologist. Medications to discontinue per physician vitamins and supplements for 3 days prior to surgery. pt to stop Giovanna 2 weeks before and 2 weeks after surgery per office order. Date to take last dose Please no make-up, nail syrian, hairspray, perfume, deodorant, or body powder the day of surgery.? No jewelry (including any body piercings) or valuables the day of surgery, leave them at home.? Please take a shower or bath the night before, or the morning of, surgery with an antibacterial soap.? Wear comfortable, loose fitting clothing.? Children are encouraged to wear pajamas. - Jewelry must be removed prior to entering the operating room.? Rings and piercings that are not removed may be cut off. - The hospital will not accept responsibility for valuables.? - Please leave all valuables, including medications, at home the day of surgery. If you are going home after surgery, a licensed rivet driver must drive you home.? - NO public transportation without another adult if you receive anesthesia. - We recommend that an adult stay with you for 24 hours following discharge. - We also recommend that you do not drive, make important decision, drink alcoholic beverages, or take any drugs that were not prescribed by your health care provider for at least 24 hours after your discharge time. For Pediatric surgeries, we recommend two adults accompany the child home. Follow any additional instructions given to you from your surgeon. Telephone instructions given to _patient_and asked if any additional questions and then verbalized understanding. Patient advised to call surgeon office or pre surgery nurse liaison [phone] if any additional questions.
[2025-02-19] VITALS (9 sets, daily range): BP systolic 123–149; BP diastolic 73–93; PULSE 54–84; RESP 14–20; TEMP 36.7; O2SAT 96–100; BMI 28.7
--- OUTSIDE RECORDS SUMMARY | 2025-02-19 00:56 | XMS_ITS | Continuity of Care Document ---
Author Organization [facility] Address [address] [place] [address] Phone Care Team Providers Care Fundraising Specialist Name Role Phone Geneva Lopez PA-C Unavailable Unavailable Medications Medication Instructions Dosage Effective Dates (start - stop) Status Comments Levothroid 125 mcg Tab take 1 tablet (125MCG) by oral route every day - Active Humalog 100 unit/mL Sub-Q inject by subcutaneous route as per insulin sliding scale protocol - Active take 2u every am, take 0 u per 12-15 carbs if FBS 80-200, take 1 u per 12-15 carbs if FBS 200-250, TAKE 2 U PER 12-15 carbs if FBS 250-300, take 3 u per 12-15 carbs if FBS is 300-350, and of FBS >350 call provider Lantus 100 unit/mL Sub-Q inject by subcutaneous route as per insulin protocol 0.00 - Active PT USES 32 UNITS QHS.REQUESTED THROUGH DRUG [facility] tramadol 50 mg Tab take 1 tablet [...] Diagnoses Date Provider Providers Copied on Encounter [facility], [address] [place] [address], [facility], tel:[phone] [place] No Information 3 Felicitasema Bean. [address] [place] [address], [facility], . tel:[phone] [facility], [address] [place] [address], [facility], tel:[phone] [place] No Information 3 Jessica Bean. [address] [place] [address], . tel:[phone] [facility], [address] [place] [address], [facility], tel:[phone] [facility] No Information 3 No Information [facility], [address] [place] [address], [facility], tel:[phone] [facility] RX FOR THYROID LABS (chief complaint) Hypothyroidis m 2 No Information [facility], [address] [place] [address], tel:[phone] [facility] No Information 2 No Information [facility], [address] [place] [address], [address], tel:[phone] [facility] No Information 2 No Information [facility], [address] [place] [address], [facility], [place] tel:[phone] [facility] medication refill (chief complaint) Diabetes mellitus without mention of complication, type I [juvenile type], not stated as uncontrolledU nspecified acquired hypothyroidis mRheumatoid arthritisDiab etes mellitus without mention of complication, type I [juvenile type], not stated as uncontrolledU nspecified acquired hypothyroidis mRheumatoid arthritisDepr essive disorder, not elsewhere classified 2 No Information [facility], [address] [place] [address], [facility], tel:[phone] [facility] RX FOR (chief complaint) Diabetes mellitus without mention of complication, type I [juvenile type], not stated as uncontrolledU nspecified acquired hypothyroidis 2 No Information [facility], [address] [place] [address], [facility], [place] tel:[phone] [facility] No Information 2 No Information [facility], [address] [place] [address], [facility], tel:[phone] [facility] med refill (chief complaint) Diabetes mellitus without mention of complication, type I [juvenile type], not stated as uncontrolledU nspecified acquired hypothyroidis 2 No Information [facility], [address] [place] [address], [address], [place] tel:[phone] [facility] rx for labs (chief complaint) Diabetes mellitus without mention of complication, type I [juvenile type], not stated as uncontrolled 2 No Information [facility], [address] [place] [address], [address], [place] tel:[phone] [facility] follow up arthritis (chief complaint) Rheumatoid arthritisRheu matoid arthritisPain in joint involving hand 2 No Information [facility], [address] [place] [address], [address], [place] tel:[phone] [facility] pap (chief complaint) Routine gynecological examinationSc reening for malignant neoplasms of the cervixDiabete s mellitus without mention of complication, type I [juvenile type], not stated as uncontrolledU nspecified acquired hypothyroidis m 1 No Information [facility], [address] [place] [address], [address], [place] tel:[phone] [facility] fasting labs (chief complaint)sydney mp (chief complaint)st opped medications (chief complaint) Diabetes mellitus without mention of complication, type I [juvenile type], not stated as uncontrolledR heumatoid arthritisMajo r depressive affective disorder, single episode, moderate degreeCarbunc le and furuncle of unspecified site 1 No Information [facility], [address] [place] [address], [address], [place] [phone] [facility] lab follow up (chief complaint)di scuss meds (chief complaint)de pression (chief complaint) Diabetes mellitus without mention of complication, type I [juvenile type], not stated as uncontrolledM ajor depressive affective disorder, single episode, moderate degreeUnspeci fied acquired hypothyroidis mRheumatoid arthritisThor acogenic scoliosis 1 No Information [facility], [address] [place] [address], [address], tel:[phone] [facility] labs (chief complaint) Diabetes mellitus without mention of complication, type I [juvenile type], not stated as uncontrolled 1 No Information [facility], [address] [place] [address], [address], [place] tel:[phone] [facility] follow up (chief complaint) Major depressive affective disorder, single episode, moderate degreeDiabete s mellitus without mention of complication, type I [juvenile type], not stated as uncontrolledU nspecified acquired hypothyroidis mRheumatoid arthritis 1 No Information [facility], [address] [place] [address], [address], tel:[phone] [facility] follow up depression (chief complaint) Abnormal pupillary function, unspecifiedMa pamela depressive affective disorder, single episode, moderate degreeDiabete s mellitus without mention of complication, type I [juvenile type], not stated as uncontrolled No Information [facility], [address] [place] [address], [address], tel:[phone] [facility] FOLLOW UP FROM [facility] (chief complaint) Major depressive affective [...] Lipid Panel. Due on 012 due Goal DSP ENGINEER exam. Due on due Goal H&P. Due [...] medication side effects Call if symptoms persist Renew medications Review medications Review medication side effects Prescribe medications Renew medications Renew medications Assessments Type Assessment Date No Information Patient Care Teams Name Effective Dates (start - stop) Status Members No Information
--- OUTSIDE RECORDS SUMMARY | 2025-02-19 00:57 | XMS_ITS | Clinical Summary ---
Author Organization [facility] [place] Address [address] [place] [address] Care Team Providers Care Air And Missile Defense Crewmember Name Role Phone Unavailable Primary Care Provider Unavailabl e Allergies No known active allergies Active Problems No known active problems Encounters Date Type Department Care Team Description 01/29/2025 External Device Data [facility] Provider, Abstract 01/08/2025 External Device Data [facility] Provider, [...] (1 of 2) 2019 INFLUENZA VACCINE (#1) 2025 Insurance [id number] BLUE ACCESS/TRUE BLUE PPO
--- OUTSIDE RECORDS SUMMARY | 2025-02-19 00:57 | XMS_ITS | Patient Health Record ---
Author Organization [facility] Address [address] [place], [place] [address] Care Team Providers Care Financial Processing Clerk Name Role Phone JC DICKINSON MD Primary Care Provider Unavailseema MatiasCheco gaosravanthi Unavailable [phone] Jasmina Patrick Unavailable [phone] ALLERGIES No Known Allergies RESULTS Component Value Reference Range Notes CREATININE Reviewed date:11/20/2024 04:21:59 PM Interpretation: Performing Lab:[place] [place] [address] Administration Regan Colindres [address] Notes/Report: FASTING:NO FASTING: NO CREATININE 0.76 0.50-1.03 mg/dL EGFR 92 > OR = 60 mL/min/1.73m2 AST Reviewed date:11/20/2024 04:21:59 PM Interpretation: Performing Lab:[place] [place] [address] Administration Regan Colindres [address] Notes/Report: FASTING:NO FASTING: NO AST 21 10-35 U/L ALT Reviewed date:11/20/2024 04:21:59 PM Interpretation: Performing Lab:[place] [place] [address] Administration Regan Colindres [address] Notes/Report: FASTING:NO FASTING: NO ALT 15 6-29 U/L SED RATE BY MODIFIED WESTERG JAVI Reviewed date:11/20/2024 04:21:59 PM Interpretation: Performing Lab:[place] [place] [address] Administration Regan Colnidres [address] [facility] [place] Ward Notes/Report: FASTING:NO FASTING: NO SED RATE BY MODIFIED WESTERGREN 24 < OR = 30 mm/h CBC (INCLUDES DIFF/PLT) Reviewed date:11/20/2024 04:21:59 PM Interpretation: Performing Lab:[place] [place] [address] Administration Regan Colindres [place] [address] [facility] Notes/Report: FASTING:NO FASTING: NO WHITE BLOOD [...] MPV 10.6 7.5-12.5 fL ABSOLUTE NEUTROPHILS 5561 8581-9652 cells/uL ABSOLUTE LYMPHOCYTES 2688 850-3900 cells/uL ABSOLUTE MONOCYTES 716 200-950 cells/uL ABSOLUTE EOSINOPHILS 223 15-500 cells/uL ABSOLUTE BASOPHILS 112 0-200 cells/uL NEUTROPHILS 59.8 LYMPHOCYTES 28.9 MONOCYTES 7.7 EOSINOPHILS 2.4 BASOPHILS 1.2 C-REACTIVE PROTEIN Reviewed date:11/20/2024 04:21:59 PM Interpretation: Performing Lab:[place] [address] Administration Regan Colindres [address] Notes/Report: FASTING:NO FASTING: NO C-REACTIVE PROTEIN <5.0 <8.0 mg/L REASON FOR REFERRAL No Information MEDICATIONS Medication SIG (Take, Route, Frequency, Duration) Notes Start Date End Date Status Humira Pen 40 mg/0.4 mL INJECT 40 MG (0. 4 ML) UNDER THE SKIN EVERY OTHER WEEK Active Fiasp 100 units/mL as directed subcutan eously 3 times a day (before meals) Active levothyroxine 125 mcg (0.125 mg) 1 tab(s) orally once a day A ctive pravastatin 10 mg 1 tab(s) orally once a day Active celecoxib 200 mg 1 cap(s) orally once a day for 30 day(s) 11/29/2024 Active SOCIAL HISTORY Tobacco Use: Social History Observation Description Date Details (start date - stop date) Former Smoker NA - NA Sex Assigned At : Social History Observation Description Sex Assigned At Unknown Tobacco Use: Question Answer Notes Smoking Status former smoker PROBLEMS Problem Type ICD Code Onset Dates Problem Status W/U Status Risk SNOMED Code Notes Problem Polyarthritis (M13.0) Active confirmed 39102119 Problem Right wrist pain (M25.531) Active confirmed [id number] Problem Rheumatoid arthritis with positive rheumatoid factor, involving unspecified site (M05.9) Active confirmed 186893220 Problem Rheumatoid arthritis with rheumatoid factor of multiple sites without organ or systems involvement (M05.79) Active confirmed 913550553 Problem Other prison (current) drug therapy (Z79.899) Active confirmed 339947083 Problem Screening for tuberculosis (Z11.1) Active confirmed 239096027 VITAL SIGNS Heart Rate 77 /min 11/29/2024 [...] [facility] [address] [facility], [address] [place], [place] [id number] 03/28/2024 Jasmina Scheidemantel [facility] [address] [facility], [address] [place], [place] [id number] 03/30/2024 Jasmina Scheidemantel Rheumatoid arthritis with rheumatoid factor of multiple sites without organ or systems involvement M05.79 ; Myalgia M79.10 ; Other termite control service representative (current) drug therapy Z79.899 and Screening for tuberculosis Z11.1 [facility] [address], [address] [id number] 08/03/2024 Jasmina Scheidemantel [facility] [address], [facility] [address] [place], [place] [id number] 08/02/2024 Jasmina Scheidemantel Rheumatoid arthritis with rheumatoid factor of multiple sites without organ or systems involvement M05.79 and Other termite control service representative (current) drug therapy Z79.899 [facility] [address] [facility], [address] [id number] 11/29/2024 Jasmina Scheidemantel Rheumatoid arthritis with rheumatoid factor of multiple sites without organ or systems involvement M05.79 ; Right wrist pain M25.531 ; Other prison (current) drug therapy Z79.899 and Screening for tuberculosis Z11.1 [facility] [address] [facility], [address] [id number] 03/30/2024 Akgun Janene [facility] [address] [facility], [address] [id number] 04/03/2024 Akgun Janene [facility] [address] [facility], [address] [id number] 04/20/2024 Akgun Janene [facility] [address] [facility], [address] [id number] 06/19/2024 Akgun Janene [facility] [address], [address] [id number] 06/19/2024 Akgun Janene Rheumatoid arthritis with rheumatoid factor of multiple sites without organ or systems involvement M05.79 [facility] [address] [facility], [address] [id number] 11/29/2024 Akgun Janene [facility] [address] [facility], [address] [id number] 04/02/2024 Akgun Janene [facility] [address] [facility], [address] [id number] 05/29/2024 Akgun Janene [facility] [address] [facility], [address] [id number] 05/31/2024 Latia Watters ASSESSMENTS Encounter Date Diagnosis Assessment Notes Treatment Notes Treatment Clinical Notes Section Notes 03/30/2024 Rheumatoid arthritis with rheumatoid factor of multiple sites without organ or systems involvement (ICD-10 - M05.79) FAx labs from [facility]. If QTF done, do not redo. Lab slip given today. She prefers to get labs done at [facility]. Right wrist no worse or better on humira. WAs told in distant past by a hand ortho that surgery is all that would help wrist pain. Could consider another ortho opinion. If daily mobic not helping, we could try a different one. No active synovitis on exam. Try theraworx, will check mag and B12. NCS/EMG also ordered. 03/30/2024 Myalgia (ICD-10 - M79.10) FAx labs from [facility]. If QTF done, do not redo. Lab slip given today. She prefers to get labs done at [facility]. Right wrist no worse or better on humira. WAs told in distant past by a hand ortho that surgery is all that would help wrist pain. Could consider another ortho opinion. If daily mobic not helping, we could try a different one. No active synovitis on exam. Try theraworx, will check mag and B12. NCS/EMG also ordered. 08/02/2024 Other prison (current) drug therapy (ICD-10 - Z79.899) Labs have been ordered for medication adverse effect and efficacy monitoring. No changes will be made to medications at this time. Alechantel helpful prn. Follow up with pcp for diarrhea if no better. She feels humira is helping, she has been on it little over 1 year. Flares are not often and usually appear as extreme tenderness in hands. Hasn't needed wrist injection since before starting Humira. 08/02/2024 Rheumatoid arthritis with rheumatoid factor of multiple sites without organ or systems involvement (ICD-10 - M05.79) Labs have been ordered for medication adverse effect and efficacy monitoring. No changes will be made to medications at this time. Aleve helpful prn. Follow up with pcp for diarrhea if no better. She feels humira is helping, she has been on it little over 1 year. Flares are not often and usually appear as extreme tenderness in hands. Hasn't needed wrist injection since before starting Humira. 11/29/2024 Rheumatoid arthritis with rheumatoid factor of [...] slip given for quest. Recent labs normal. 06/19/2024 Rheumatoid arthritis with rheumatoid factor of multiple sites without organ or systems involvement (ICD-10 - M05.79) 03/30/2024 Other termite control service representative (current) drug therapy (ICD-10 - Z79.899) FAx labs from [facility]. If QTF done, do not redo. Lab slip given today. She prefers to get labs done at [facility]. Right wrist no worse or better on humira. WAs told in distant past by a hand ortho that surgery is all that would help wrist pain. Could consider another ortho opinion. If daily mobic not helping, we could try a different one. No active synovitis on exam. Try theraworx, will check mag and B12. NCS/EMG also ordered. 11/29/2024 Other termite control service representative (current) drug therapy (ICD-10 - Z79.899) RA on humira and does fairly well. Right wrist is an issues at times. Will inject it today, mild activity, ice prn. Lab slip given for quest. Recent labs normal. 03/30/2024 Screening for tuberculosis (ICD-10 - Z11.1) FAx labs from [facility]. If QTF done, do not redo. Lab slip given today. She prefers to get labs done at [facility]. Right wrist no worse or better on humira. WAs told in distant past by a hand ortho that surgery is all that would help wrist pain. Could consider another ortho opinion. If daily mobic not helping, we could try a different one. No active synovitis on exam. Try theraworx, will check mag and B12. NCS/EMG also ordered. 11/29/2024 Screening for tuberculosis (ICD-10 - Z11.1) RA on humira and does fairly well. Right wrist is an issues at times. Will inject it today, mild activity, ice prn. Lab slip given for quest. Recent labs normal. PLAN OF TREATMENT Pending Test Test Name [...] 08/30/2024 ALT (SGPT) 08/30/2024 CBC With Differential/Platelet 5 Sed Rate - Westergren 08/30/2024 C-Reactive Protein, Quant 08/30/2024 Next Appt Details Provider Name:Jasmina sanchez, 04/01/2025 11:30:00 AM, [address], [address], [place], [place], [phone], Insurance Providers Payer Name Payer Address Payer Phone Subscriber Number Group Number Insured Name Patient Relationship to Insured Coverage Start Date Coverage End Date Vandana Willett [address] [place] [address] [phone] [id number] Donna Bocanegra Self - patient is the insured 8 MEDICAL (GENERAL) HISTORY Medical History History ICD Code diabetes type 1 depression thyroid disease high blood pressure bronchitis Surgical History Surgery Date(Month/Year) foot surgery(s) C section
--- OUTSIDE RECORDS SUMMARY | 2025-02-19 00:57 | XMS_ITS ---
Author Organization [facility] Address [address] [place], [place] [id number] Care Team Providers Care Hand Candy Molder Name Role Phone JC DICKINSON MD Primary Care Provider UnavailLatia Clarke Unavailable [phone] Jasmina Patrick Unavailable REASON FOR VISIT 4 mo f/u Encounters Encounter Location Date Provider Diagnosis [facility] [address], [address] [place], [place] [phone] 08/03/2024 Jasmina Patrick PLAN OF TREATMENT Next Appt Details Provider Name:Jasmina sanchez, 04/01/2025 11:30:00 AM, [address], [address], [place], [place], [phone],
--- OUTSIDE RECORDS SUMMARY | 2025-02-19 00:57 | XMS_ITS ---
Author Organization [facility] Address [address] [place], [place] [phone] Care Team Providers Care Supervisor Blasting Name Role Phone JC DICKINSON MD Primary Care Provider UnavailLatia Clarke Unavailable [phone] Jasmina Patrick Unavailable [phone] ALLERGIES No Known Allergies REASON FOR [...] [facility] [address], [address] [place], [place] [id number] 11/29/2024 Jasmina Patrick Rheumatoid arthritis with rheumatoid [...] for quest. Recent labs normal. 11/29/2024 Other jail (current) drug therapy (ICD-10 - Z79.899) RA [...] Name:Jasmina sanchez, 04/01/2025 11:30:00 AM, [address] [facility], [address], [place], [place], [id number], Procedure Notes * Category Sub-Category Detail Notes Injection Site right wrist Drug Injected Xylocaine [facility]: 86649 -[id number] lot # [id number] exp: 10/10 , Triamcinalone Acetonide [facility] [id number] LOT: [id number] EXP: 2025-12 Dose 20 mg , 0.5 [...] son. She reports that she had seen juvenile correctional officer Dr Raoul Harmon who prescribed Plaquenil. She has not followed up with a juvenile correctional officer in 3 years. She reports that she [...]
--- OUTSIDE RECORDS SUMMARY | 2025-02-19 00:57 | XMS_ITS ---
Author Organization [facility] Address [address] [place], [place] [address] Care Team Providers Care Fisher Eel Spear Name Role Phone JC DICKINSON MD Primary Care Provider Latia Marks Unavailable [phone] MEDICATIONS Medication SIG (Take, Route, Fr equency, Duration) Notes Start Date End Date Status celecoxib 200 mg 1 cap(s) orally once a day for 30 day(s) 11/29/2024 Active Encounters Encounter Location Date Provider Diagnosis [facility] [address], [facility] [address] [place], [place] [phone] 11/29/2024 Latia Watters PLAN OF TREATMENT Medication Medication Name Sig Start Date Stop Date Notes celecoxib 200 mg 1 cap(s) orally once a day for 30 day(s) 11/29/2024 Next Appt Details Provider Name:Jasmina sanchez, 04/01/2025 11:30:00 AM, [address], [address], [place], [place], [phone],
[2025-02-19] MEDS: ACETAMINOPHEN 500 MG TABLET 1000 MG PO (07:15)
[2025-02-19] MEDS: CELECOXIB 200 MG CAPSULE PO (07:15)
[2025-02-19] MEDS: LACTATED RINGERS 1,000 ML 30 ML IV CONT ×2 (07:20→10:15)
--- NOTE | 2025-02-19 08:15 | P.PNAN_ITS ---
Anes - Initial Pre Proc Eval Procedure: Operation Date: 02/19/25 08:30 Proposed Procedures p Right Rotator Cuff Repair - Ender Shaw MD Date/Time: 02/19/25 08:15 Surgeon: Ender Shaw MD Pre Op Diagnosis: right rotator cuff tear, AC joint DJD Patient Data Age: 54 Gender: F Height: 1.83 m Weight: 96 kg Last Vital Signs Temp 98.1 F 02/19/25 06:29 Pulse 66 02/19/25 06:29 Resp 14 02/19/25 06:29 BP 131/73 02/19/25 06:29 Pulse Ox 98 02/19/25 06:29 Allergies Allergy/AdvReac Type Severity Reaction Status Date / Time sulfadiazine Allergy Intermediate Hives Verified 02/19/25 07:51 Home Medications ?Medication ?Instructions ?Recorded ?Confirmed ?Type adalimumab 40 mg/0.8 mL 40 mg subcut Q14D 12/13/23 02/12/25 History subcutaneous pen kit (Humira Pen) levothyroxine 125 mcg tablet 125 mcg PO .COMPLEX #90 tabs 07/02/24 02/19/25 Rx glucagon 3 mg/actuation nasal spray 3 mg intranasal ONCE #2 ea 09/17/24 02/12/25 Rx blood-glucose sensor (Dexcom G6 #9 ea 12/25/24 02/12/25 Rx Sensor device) blood-glucose transmitter (Dexcom #1 ea 12/25/24 02/12/25 Rx G6 Transmitter device) ergocalciferol (vitamin D2) 1,250 1,250 mcg PO WEEKLY 14 weeks #14 01/17/25 02/19/25 Rx mcg (50,000 unit) capsule caps insulin pump cart,auto,BT,G6/7 #45 ea 01/17/25 02/12/25 Rx (Omnipod 5 G6-G7 Pods (Gen 5) subcutaneous cartridge) losartan 25 mg tablet See Rx Instructions .Route 01/17/25 02/12/25 Rx .COMPLEX #90 tabs pravastatin 10 mg tablet See Rx Instructions .Route 01/17/25 02/12/25 Rx .COMPLEX #90 tabs insulin aspart See Rx Instructions subcut .COMPLEX 02/19/25 02/19/25 History (niacinamide)(U-100) 100 unit/mL(3 mL) subcutaneous pen (Fiasp FlexTouch U-100 Insulin) Laboratory Tests 02/19/25 06:58 POC Capillary Glucose 127 H mg/dl (65-105) Patient hx anesthesia problems: none Family hx anesthesia problems: none Results Review: All pre-operative results and documents have been reviewed as part of the pre- operative evaluation. [facility] Past Medical History Medical History Rotator cuff tendonitis Right shoulder pain COVID Low vitamin D level Ulcer of foot Postmenopausal Mixed hyperlipidemia Major depressive disorder Long-term use of immunosuppressant medication Hypovitaminosis D Hallux valgus (acquired), unspecified foot Body mass index (BMI) greater than 30 (02/13/19) Acquired hammertoe of right foot COVID Hypertension Scoliosis Lung nodule COVID-19 Type 1 diabetes mellitus with hyperglycemia Dietary counseling and surveillance Insulin pump in place Rheumatoid arthritis Type 1 diabetes mellitus with hypoglycemia without coma Weight loss Skin laxity Insulin pump titration HLD (hyperlipidemia) Hypothyroidism Type 1 diabetes mellitus without complications Surgical History Surgical History History of S/P joint replacement History of foot surgery Family History Family History Father Family history of arthritis Mother Family history of heart disease in male family member before age 55 Unknown Depression Heart disease Diabetes mellitus Other Family history of alcoholism Family history of osteoporosis Family history of seizure disorder Social History Social History Smoking packs per day: 0.1 Smoking cigarettes per day: 2.0 Years smoked: 15 Smoking pack-years: 1.50 Smoking status: Former smoker Second hand tobacco smoke exposure: No Additional smoking assessment comments: off and on Alcohol intake: current Drinks per week: 2 Alcohol use details: 2-3 glasses of wine Substance use: current Substance use type: does not use Other substance usage details: edibles; 2x/week Do You Feel Safe in your Home?: Yes Lack of Transportation: No Lack of Food: Never True Current Housing: I Have Housing Concerned About Future Housing: No Difficulty Paying Gas/Electric Bills: No Difficulty Paying for Meds: No Currently Unemployed: No Difficulty w/ Childcare or Family Care: No Occupation/Education: occupation 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 DM 1, on cont insulin infusion and CGM in place. FSBS 127. Pt w hx of neuropathy after prev surgery in foot (sounds to be resolved) and hx of bronchiectasis per EMR but not clear when that was dx. Pt without cp or sob. Informed Consent: The patient's anesthetic plan and its attendant risks and benefits were discussed with the patient/family/POA. Questions were solicited and answers provided to the satisfaction of the patient/family/POA.
--- NOTE | 2025-02-19 08:43 | WPDHPUPDATE1 ---
History and Physical Update Update Date/Time: 02/19/25 08:43 History and Physical has been reviewed, including an updated exam of the patient. There are NO changes in the patient's condition. Risks, benefits, and alternatives have been discussed and questions answered. Patient agrees to proceed with procedure.
[2025-02-19] MEDS: ceFAZolin 2 GM/D5W 50 ML 2 GM/50 ML BAG IVPB (08:49)
[2025-02-19] MEDS: BUPivacaine HCL 0.5% 10 ML AMP 30 ML INFILTRATE (09:22)
[2025-02-19] MEDS: HYDROGEN PEROXIDE 3% SOLN(*SP) 473 ML BOTTLE 500 ML IRRIGATION (09:59)
--- NOTE | 2025-02-19 10:07 | W.PM.PROC2 ---
Procedure Note - Detailed Date of Procedure 02/19/25 Pre-op Diagnosis right rotator cuff tear Post-op Diagnosis Same Procedure Performed REPAIR RIGHT ROTATOR CUFF Surgeon Ender Shaw MD Anesthesia General Description of Procedure THE PATIENT WAS TAKEN TO THE OPERATING ROOM AND THEN INTUBATED AND PLACED IN THE BEACH CHAIR POSITION. THE RIGHT UPPER EXTREMITY WAS PREPPED AND DRAPED IN THE NORMAL STERILE FASHION. AN INCISION WAS MADE IN BETWEEN THE LIZ-LATERAL ACROMION AND THE AC JOINT. THE FASCIA WAS IDENTIFIED. NEXT A MINI OPEN INCISION WAS MADE THROUGH THE DELTOID MUSCLE EXPOSING THE SUBACROMIAL SPACE. A LIMITED ACROMIOPLASTY WAS PREFORMED. THE ROTATOR CUFF WAS IDENTIFIED. THERE WAS A FULL THICKNESS TEAR. IT MEASURED APPROXIMATELY 1.5 CM X 1 CM. THE GREATER TUBEROSITY WAS DEBRIDED TO BLEEDING BONE. 1 ARTHREX 5.5 SUTURE ANCHOR WAS PLACED IN TO GOOD BONE AND HAD VERY GOOD BITES. GERTRUDE-CONCEPCION TYPE REPAIRS WERE DONE TO THE ROTATOR CUFF AND THERE WAS GOOD APPROXIMATION TO THE GREATER TUBEROSITY. THE REPAIR WAS EXCELLENT. THERE WAS NO IMPINGEMENT ON THE REPAIR FROM THE ACROMION WITH RANGE OF MOTION. THE WOUND WAS IRRIGATED WITH COPIOUS AMOUNTS OF ANTIBIOTIC SOLUTION. THE DELTOID MUSCLE WAS REPAIRED WITH #2 FIBER WIRE AND 0 VICRYL SUTURE. THE SUBCUTANEOUS LAYER WAS APPROXIMATED WITH 2-0 VICRYL. THE SKIN WAS APPROXIMATED WITH 3-0 QUIL AND DERMABOND. STERILE DRESSING WAS APPLIED. PATIENT WAS EXTUBATED. Estimated Blood Loss 20 Complications No immediate complications Condition Stable Disposition PACU
[2025-02-19] MEDS: fentaNYL CITRATE INJ (*CRX) 100 MCG/2 ML VIAL 25 MCG IV PUSH ×4 (10:22→10:33)
[2025-02-19] MEDS: oxyCODONE HCL (*CRX) 5 MG TAB IR PO (11:25)
== END 2025-02-19 12:30 | disposition home or self-care (01) ==
PROVIDERS: PCP Family Medicine; Visit Provider Orthopaedic Surgery
PROC: (CPT 23420; principal; 2025-02-19 08:30)
DX: M75.121 Complete rotator cuff tear or rupture of right shoulder, not specified as traumatic (principal); M75.81 Other shoulder lesions, right shoulder; G89.29 Other chronic pain; I10 Essential (primary) hypertension; E03.9 Hypothyroidism, unspecified; E78.2 Mixed hyperlipidemia; F32.9 Major depressive disorder, single episode, unspecified; E55.9 Vitamin D deficiency, unspecified; E10.65 Type 1 diabetes mellitus with hyperglycemia; E10.649 Type 1 diabetes mellitus with hypoglycemia without coma; M41.9 Scoliosis, unspecified; M06.9 Rheumatoid arthritis, unspecified; Z96.41 Presence of insulin pump (external) (internal); Z79.4 Long term (current) use of insulin; Z79.51 Long term (current) use of inhaled steroids; Z79.620 Long term (current) use of immunosuppressive biologic; Z98.890 Other specified postprocedural states; Z87.891 Personal history of nicotine dependence; Z82.49 Family history of ischemic heart disease and other diseases of the circulatory system
CPT/HCPCS: 23412; 82948; A4565; A9270; C1713; J0690; J1100; J1171; J2003; J2250; J2405; J2704; J3010; J7120

== ENCOUNTER 2025-06-15 10:17 | Outpatient (CLI) | payer BC, SELFPAY ==
--- OUTSIDE RECORDS SUMMARY | 2024-11-29 05:50 | XMS_ITS ---
Author Organization [facility] Address [address] [place], [place] [id number] Care Team Providers Care Facilities Operator Name Role Phone JC DICKINSON MD Primary Care Provider UnavailLatia Clarke Unavailable [phone] Jasmina Patrick Unavailable [phone] ALLERGIES No Known Allergies REASON FOR [...] [facility] [address] [place], [place] [phone] 11/29/2024 Jasmina Patrick Rheumatoid arthritis with rheumatoid factor of multiple sites without organ or systems involvement M05.79 ; Right wrist pain M25.531 ; Other penitentiary (current) drug therapy Z79.899 and Screening for [...] for quest. Recent labs normal. 11/29/2024 Other terminal press operator (current) drug therapy (ICD-10 - Z79.899) RA [...] Name:Jasmina sanchez, 08/12/2025 10:00:00 AM, [address] [facility], [address], [place], [place], [id number], Procedure Notes * Category Sub-Category Detail Notes Injection Site right wrist Drug Injected Xylocaine [facility]: 52691 -485-57 lot # [id number] exp: 10/10 , Triamcinalone Acetonide [facility] 4950-1233-91 LOT: [id number] EXP: 2025-12 Dose 20 mg , 0.5 [...] son. She reports that she had seen plant safety engineer Dr Raoul Harmon who prescribed Plaquenil. She has not followed up with a plant safety engineer in 3 years. She reports that she [...]
--- OUTSIDE RECORDS SUMMARY | 2024-11-29 06:11 | XMS_ITS ---
Author Organization [facility] Address [address] [place], [place] [id number] Care Team Providers Care House Detective Name Role Phone JC DICKINSON MD Primary Care Provider Latia Marks Unavailable [phone] MEDICATIONS Medication SIG (Take, Route, Fr equency, Duration) Notes Start Date End Date Status celecoxib 200 mg 1 cap(s) orally once a day for 30 day(s) 11/29/2024 Active Encounters Encounter Location Date Provider Diagnosis [facility] [address], [facility] [address] [place], [place] [id number] 11/29/2024 Latia Watters PLAN OF TREATMENT Medication Medication Name Sig Start Date Stop Date Notes celecoxib 200 mg 1 cap(s) orally once a day for 30 day(s) 11/29/2024 Next Appt Details Provider Name:Jasmina sanchez, 08/12/2025 10:00:00 AM, [address], [address], [place], [place], [id number],
--- OUTSIDE RECORDS SUMMARY | 2025-02-19 14:00 | XMS_ITS ---
Author Organization [facility] Address [address] [place], [place] [phone] Care Team Providers Care Flanging Machine Operator Name Role Phone JC DICKINSON MD Primary Care Provider UnavailLatia Clarke Unavailable [phone] REASON FOR VISIT Reschedule Appointment Request Encounters Encounter Location Date Provider Diagnosis [facility] [address], [address] [place], [place] [phone] 02/19/2025 Latia Watters PLAN OF TREATMENT Next Appt Details Provider Name:Jasmina sanchez, 08/12/2025 10:00:00 AM, [address], [address], [place], [place], [phone],
--- OUTSIDE RECORDS SUMMARY | 2025-03-19 07:06 | XMS_ITS ---
Author Organization [facility] Address [address] [place], [place] [id number] Care Team Providers Care Products Mechanical Design Engineer Name Role Phone JC DICKINSON MD Primary Care Provider Latia Marks Unavailable [phone] REASON FOR VISIT HUMIRA MEDICATIONS Medication SIG (Take, Route, Fr equency, Duration) Notes Start Date End Date Status Humira Pen 40 mg/0.4 mL 40mg subcutaneou sly every other week for 28 days Active Encounters Encounter Location Date Provider Diagnosis [facility] [address], [address] [place], [place] [id number] 03/19/2025 Latia Watters PLAN OF TREATMENT Medication Medication Name Sig Start Date Stop Date Notes Humira Pen 40 mg/0.4 mL 40mg subcutaneou sly every other week for 28 days Next Appt Details Provider Name:Jasmina sanchez, 08/12/2025 10:00:00 AM, [address], [address], [place], [place], [phone],
--- OUTSIDE RECORDS SUMMARY | 2025-03-22 07:04 | XMS_ITS ---
Author Organization [facility] Address [address] [place], [place] [id number] Care Team Providers Care Environmental Research Scientist Name Role Phone JC DICKINSON MD Primary Care Provider Latia Marks Unavailable [phone] REASON FOR VISIT Humira - House Rx MEDICATIONS Medication SIG (Take, Route, Fr equency, Duration) Notes Start Date End Date Status Humira Pen 40 mg/0.4 mL 40mg subcutaneou sly every other week for 28 days Active Encounters Encounter Location Date Provider Diagnosis [facility] [address], [address] [place], [place] [phone] 03/22/2025 Latia Watters PLAN OF TREATMENT Medication Medication Name Sig Start Date Stop Date Notes Humira Pen 40 mg/0.4 mL 40mg subcutaneou sly every other week for 28 days Next Appt Details Provider Name:Jasmina sanchez, 08/12/2025 10:00:00 AM, [address], [address], [place], [place], [phone],
--- OUTSIDE RECORDS SUMMARY | 2025-04-01 06:30 | XMS_ITS ---
Author Organization [facility] Address [address] [place], [place] [phone] Care Team Providers Care Mobile Tester Name Role Phone JC DICKINSON MD Primary Care Provider UnavailLatia Clarke Unavailable [phone] Jasmina Patrick Unavailable REASON FOR VISIT 4 mo f/u Encounters Encounter Location Date Provider Diagnosis [facility] [address], [address] [place], [place] [phone] 04/01/2025 Jasmina Patrick PLAN OF TREATMENT Next Appt Details Provider Name:Jasmina sanchez, 08/12/2025 10:00:00 AM, [address], [address], [place], [place], [phone],
--- OUTSIDE RECORDS SUMMARY | 2025-04-08 06:30 | XMS_ITS ---
Author Organization [facility] Address [address] [place], [place] [phone] Care Team Providers Care Mcat Tutor Name Role Phone JC DICKINSON MD Primary Care Provider UnavailLatia Clarke Unavailable [phone] Jasmina Patrick Unavailable [phone] ALLERGIES No Known Allergies REASON FOR [...] [facility], [address], [address] [place], [place] [id number] 04/08/2025 Jasmina Patrick Rheumatoid arthritis with rheumatoid factor of multiple sites without organ or systems involvement M05.79 ; Right wrist pain M25.531 ; Other joint terminal attack controller (current) drug therapy Z79.899 and Screening for [...] of celebrex, okay with tylenol. 04/08/2025 Other joint terminal attack controller (current) drug therapy (ICD-10 - Z79.899) RA [...] Name:Jasmina sanchez, 08/12/2025 10:00:00 AM, [address] [facility], [address], [place], [place], [phone], Progress Notes * Examination Category Sub-Category Detail [...] son. She reports that she had seen photographer model Dr Raoul Harmon who prescribed Plaquenil. She has not followed up with a photographer model in 3 years. She reports that she [...]
--- OUTSIDE RECORDS SUMMARY | 2025-06-10 07:22 | XMS_ITS ---
Author Organization [facility] Address [address] [place], [place] [phone] Care Team Providers Care Geothermal Operations Engineer Name Role Phone JC DICKINSON MD Primary Care Provider Latia Marks Unavailable [phone] Encounters Encounter Location Date Provider Diagnosis [facility] [address], [address] [place], [place] [phone] 06/10/2025 Latia Watters PLAN OF TREATMENT Next Appt Details Provider Name:Jasmina sanchez, 08/12/2025 10:00:00 AM, [address], [address], [place], [place], [phone],
--- OUTSIDE RECORDS SUMMARY | 2025-06-12 04:55 | XMS_ITS ---
Author Organization [facility] Address [address] [place], [place] [phone] Care Team Providers Care Flight Crew Ordnanceman Name Role Phone JC DICKINSON MD Primary Care Provider Latia Marks Unavailable [phone] MEDICATIONS Medication SIG (Take, Route, Fr equency, Duration) Notes Start Date End Date Status Humira Pen 40 mg/0.4 mL 40mg subcutaneou sly every other week for 28 days Active Encounters Encounter Location Date Provider Diagnosis [facility] [address], [address] [place], [place] [phone] 06/12/2025 Latia Watters PLAN OF TREATMENT Medication Medication Name Sig Start Date Stop Date Notes Humira Pen 40 mg/0.4 mL 40mg subcutaneou sly every other week for 28 days Next Appt Details Provider Name:Jasmina sanchez, 08/12/2025 10:00:00 AM, [address], [address], [place], [place], [phone],
--- OUTSIDE RECORDS SUMMARY | 2025-06-13 09:36 | XMS_ITS ---
Author Organization [facility] Address [address] [place], [place] [phone] Care Team Providers Care Industrial Registered Nurse Name Role Phone JC DICKINSON MD Primary Care Provider Latia Marks Unavailable [phone] REASON FOR VISIT Humira PA - HouseRx MEDICATIONS Medication SIG (Take, Route, Fr equency, Duration) Notes Start Date End Date Status Humira Pen 40 mg/0.4 mL 40mg subcutaneou sly every other week for 28 days Active Encounters Encounter Location Date Provider Diagnosis [facility] [address], [address] [place], [place] [phone] 06/13/2025 Latia Watters PLAN OF TREATMENT Medication Medication Name Sig Start Date Stop Date Notes Humira Pen 40 mg/0.4 mL 40mg subcutaneou sly every other week for 28 days Next Appt Details Provider Name:Jasmina sanchez, 08/12/2025 10:00:00 AM, [address], [address], [place], [place], [phone],
--- OUTSIDE RECORDS SUMMARY | 2025-06-15 10:21 | XMS_ITS | Clinical Summary ---
Author Organization [facility] [place] Address [address] [place] [address] Care Team Providers Care Welding Equipment Repairer Name Role Phone Unavailable Primary Care Provider Unavailabl e Allergies No known active allergies Active Problems No known active problems Encounters Date Type Department Care Team Description 03/19/2025 External Device Data STL ABSTRACTION Provider, Abstract [...] 2) 2019 INFLUENZA VACCINE (#1) 2025 Insurance [facility] BLUE ACCESS/TRUE BLUE PPO
--- OUTSIDE RECORDS SUMMARY | 2025-06-15 10:21 | XMS_ITS | Patient Health Record ---
Author Organization [facility] Address [address] [place], [place] [id number] Care Team Providers Care Key Person Name Role Phone JC DICKINSON MD Primary Care Provider Unavailseema MatiasCheco gaosravanthi Unavailable [phone] Jasmina Patrick Unavailable [phone] ALLERGIES No Known Allergies RESULTS Component Value Reference Range Notes CREATININE Reviewed date:11/20/2024 04:21:59 PM Interpretation: Performing Lab:[place] [address] Administration Regan Colindres [address] Notes/Report: FASTING:NO FASTING: NO CREATININE 0.76 0.50-1.03 mg/dL EGFR 92 > OR = 60 mL/min/1.73m2 AST Reviewed date:11/20/2024 04:21:59 PM Interpretation: Performing Lab:[place] [place] [address] Administration Regan Colindres [address] Notes/Report: FASTING:NO FASTING: NO AST 21 10-35 U/L ALT Reviewed date:11/20/2024 04:21:59 PM Interpretation: Performing Lab:[place] [address] Administration Regan Colindres [address] Notes/Report: FASTING:NO FASTING: NO ALT 15 6-29 U/L SED RATE BY MODIFIED WESTERG JAVI Reviewed date:11/20/2024 04:21:59 PM Interpretation: Performing Lab:[place] [address] Administration Regan [address]res [address] Ward Notes/Report: FASTING:NO FASTING: NO SED RATE BY MODIFIED WESTERGREN 24 < OR = 30 mm/h CBC (INCLUDES DIFF/PLT) Reviewed date:11/20/2024 04:21:59 PM Interpretation: Performing Lab:[place] [address] Administration Regan Colindres [address] StreetkeishaSwift County Benson Health Servicesfartun Ward Notes/Report: FASTING:NO FASTING: NO WHITE BLOOD [...] MPV 10.6 7.5-12.5 fL ABSOLUTE NEUTROPHILS 5561 2208-3750 cells/uL ABSOLUTE LYMPHOCYTES 2688 850-3900 cells/uL ABSOLUTE MONOCYTES 716 200-950 cells/uL ABSOLUTE EOSINOPHILS 223 15-500 cells/uL ABSOLUTE BASOPHILS 112 0-200 cells/uL NEUTROPHILS 59.8 LYMPHOCYTES 28.9 MONOCYTES 7.7 EOSINOPHILS 2.4 BASOPHILS 1.2 C-REACTIVE PROTEIN Reviewed date:11/20/2024 04:21:59 PM Interpretation: Performing Lab:[place] [address] Administration Regan Colindres [address] Notes/Report: FASTING:NO FASTING: NO C-REACTIVE PROTEIN <5.0 <8.0 mg/L REASON FOR REFERRAL No Information MEDICATIONS Medication SIG (Take, Route, Frequency, Duration) Notes Start Date End Date Status celecoxib 200 mg 1 cap(s) orally once a day for 30 day(s) 11/29/2024 Active pravastatin 10 mg 1 tab(s) orally once a day Active levothyroxine 125 mcg (0.125 mg) 1 tab(s) orally once a day A ctive Humira Pen 40 mg/0.4 mL 40mg subcutaneou sly every other week for 28 days Active Fiasp 100 units/mL as directed subcutan [...] Code Notes Problem Polyarthritis (M13.0) Active confirmed 45490173 Problem Right wrist pain (M25.531) Active confirmed 809765342417191 Problem Rheumatoid arthritis with positive rheumatoid factor, involving unspecified site (M05.9) Active confirmed 830209230 Problem Rheumatoid arthritis with rheumatoid factor of multiple sites without organ or systems involvement (M05.79) Active confirmed 259881590 Problem Other termite control servicer (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 2 NVinod Summers, [facility] [address] [place], [place] [id number] 08/03/2024 Jasmina [facility]idemantel [facility]od [facility], [facility] [address] [place], [place] [id number] 08/02/2024 Jasmina Scheidemantel Rheumatoid arthritis with rheumatoid factor of multiple sites without organ or systems involvement M05.79 and Other termite control servicer (current) drug therapy Z79.899 [facility] 2 NVinod Thrasher [facility], [facility] [address] [place], [place] [id number] 11/29/2024 Jasmina Scheidemantel Rheumatoid arthritis with rheumatoid factor of multiple sites without organ or systems involvement M05.79 ; Right wrist pain M25.531 ; Other termite control servicer (current) drug therapy Z79.899 and Screening for tuberculosis Z11.1 [facility] [address] [facility], [address] [id number] 04/01/2025 Jasmina Scheidemantel [facility] [address] [facility], [address] [id number] 04/08/2025 Jasmina Scheidemantel Rheumatoid arthritis with rheumatoid factor of multiple sites without organ or systems involvement M05.79 ; Right wrist pain M25.531 ; Other custodial (current) drug therapy Z79.899 and Screening for tuberculosis Z11.1 [facility] [address] [facility], [address] [id number] 06/19/2024 Aksravanthi Janene [facility] [address] [facility], [address] [id number] 06/19/2024 Akgun Janene Rheumatoid arthritis with rheumatoid factor of multiple sites without organ or systems involvement M05.79 [facility] [address] [facility], [address] [id number] 11/29/2024 Akgun Janene [facility], [address] [id number] 03/19/2025 Akgun Janene [facility], [address] [id number] 03/22/2025 Akgun Janene [facility], [address] [id number] 06/10/2025 Akgun Janene [facility], [address] [id number] 06/12/2025 Akgun Janene [facility], [address] [id number] 06/13/2025 Akgun Janene [facility] [address] [id number] 02/19/2025 Latia Watters ASSESSMENTS Encounter Date Diagnosis Assessment Notes Treatment Notes Treatment Clinical Notes Section Notes 08/02/2024 Other custodial (current) drug therapy (ICD-10 - Z79.899) Labs have been ordered for medication adverse effect and efficacy monitoring. No changes will be made to medications at this time. Nupur helpful prn. Follow up with pcp for [...] be made to medications at this time. Nupur helpful prn. Follow up with pcp for [...] slip given for quest. Recent labs normal. 04/08/2025 Rheumatoid arthritis with rheumatoid factor of [...] quantiferon. Reminded of celebrex, okay with tylenol. 06/19/2024 Rheumatoid arthritis with rheumatoid factor of multiple sites without organ or systems involvement (ICD-10 - M05.79) 11/29/2024 Other custodial (current) drug therapy (ICD-10 - Z79.899) RA on humira and does fairly well. Right wrist is an issues at times. Will inject it today, mild activity, ice prn. Lab slip given for quest. Recent labs normal. 04/08/2025 Other custodial (current) drug therapy (ICD-10 - Z79.899) RA on humira and does fairly well. Right wrist is an issues at times, injections prn. Lab slip given for labs. Yearly quantiferon. Reminded of celebrex, okay with tylenol. 11/29/2024 Screening for tuberculosis (ICD-10 - Z11.1) RA on humira and does fairly well. Right wrist is an issues at times. Will inject it today, mild activity, ice prn. Lab slip given for quest. Recent labs normal. 04/08/2025 Screening for tuberculosis (ICD-10 - Z11.1) RA on humira and does fairly well. Right wrist is an issues at times, injections prn. Lab slip given for labs. Yearly quantiferon. Reminded of celebrex, okay with tylenol. PLAN OF TREATMENT Pending Test Test Name Order Date AST (SGOT) 04/08/2025 AST (SGOT) 11/30/2023 AST (SGOT) 04/21/2023 AST (SGOT) 11/29/2024 AST (SGOT) 03/30/2024 CPK Total,Serum 03/30/2024 Creatinine, Serum 03/30/2024 Creatinine, Serum 04/08/2025 Creatinine, Serum 11/30/2023 Creatinine, Serum 04/21/2023 Creatinine, Serum 11/29/2024 Magnesium, Serum 03/30/2024 ALT (SGPT) 03/30/2024 ALT (SGPT) 04/08/2025 ALT (SGPT) 11/30/2023 ALT (SGPT) 04/21/2023 ALT (SGPT) 11/29/2024 Aldolase 03/30/2024 CBC With Differential/Platelet 5 CBC With Differential/Platelet 4 CBC With Differential/Platelet 4 CBC With Differential/Platelet 3 CBC With Differential/Platelet 5 Sed Rate - Westergren 11/30/2023 Sed Rate - Westergren 11/29/2024 Sed Rate - Westergren 04/08/2025 Sed Rate - Westergren 03/30/2024 C-Reactive Protein, Quant 04/08/2025 C-Reactive Protein, Quant 03/30/2024 C-Reactive Protein, Quant 11/30/2023 C-Reactive Protein, Quant 11/29/2024 VITAMIN B12 03/30/2024 Nerve Conduction Study 03/30/2024 X ray : Hand left- outside order 023 X ray : Hand right- outside order 2022 Joint Injection-wrist, right 02/03/2023 Joint Injection-wrist, right 11/29/2024 X ray : Foot Left- outside order 023 X ray : Foot Right- outside order 2022 Lab slip given 04/21/2023 Lab slip given 04/08/2025 Lab slip given 11/29/2024 EMG 03/30/2024 QUANTIFERON(R)-TB GOLD PLUS, 1 TUBE 08/2 12/2024 QUANTIFERON(R)-TB GOLD PLUS, 1 TUBE 11/13 QUANTIFERON(R)-TB GOLD PLUS, 1 TUBE 03/15 QUANTIFERON(R)-TB GOLD PLUS, 1 TUBE /1 02/2025 Future Test Test Name Order Date Lab slip given 08/02/2024 AST (SGOT) 08/30/2024 Creatinine, Serum 08/30/2024 ALT (SGPT) 08/30/2024 CBC With Differential/Platelet 5 Sed Rate - Westergren 08/30/2024 C-Reactive Protein, Quant 08/30/2024 Next Appt Details Provider Name:Jasmina sanchez, 08/12/2025 10:00:00 AM, [address] [facility], [address], [place], [place], [id number], Insurance Providers Payer Name Payer Address Payer Phone Subscriber Number Group Number Insured Name Patient Relationship to Insured Coverage Start Date Coverage End Date Vandana Willett [address] [place] [address] [id number] Donna Bocanegra Self - patient is the insured 8 MEDICAL (GENERAL) HISTORY Medical History History ICD Code diabetes type 1 depression thyroid disease high blood pressure bronchitis Surgical History Surgery Date(Month/Year) foot surgery(s) C section
[2025-06-15 11:08] LABS: Hematocrit 40.5 % (37.0-47.0); Hemoglobin 13.1 g/dL (12.0-15.0); Immature Granulocyte Percent A 0.4 % (0-0.5); Lymphocytes Absolute Auto 2.55 K/mm3 (0.9-3.2); Mean Corpuscular HGB Conc 32.3 g/dl (32-36); Mean Corpuscular Hemoglobin 30.1 pg (26-34); Mean Corpuscular Volume 93.1 fl (80-100); Nucleated Red Blood Cells Absolute Auto 0.000 K/mm3 (0.0-0.012); Nucleated Red Blood Cells Perc 0.0 % (0.0-0.2); Platelet Count Result 268 k/mm3 (150-375); Red Blood Count 4.35 M/mm3 (4.2-5.4); White Blood Count 9.1 K/mm3 (4.5-10.0)
[2025-06-15 11:21] LABS: Alanine Aminotransferase 17 U/L (6-35); Albumin Level 4.0 g/dL (3.5-5.1); Alkaline Phosphatase 81 U/L (38-126); Anion Gap 5 mmol/L (4-12); Aspartate Amino Transferase 30 U/L (14-36); Bilirubin,Total 1.5 mg/dL (0.2-1.3); Blood Urea Nitrogen 18 mg/dL (7-17); Calcium 8.6 mg/dL (8.4-10.2); Carbon Dioxide 26 mmol/L (22-30); Chloride 107 mmol/L (98-107); Estimated Glomerular Filt Rate > 60; Glucose 119 mg/dL (65-110); Potassium 4.2 mmol/L (3.4-5.0); Sodium 138 mmol/L (137-145); Total Protein 7.8 g/dL (6.3-8.2)
[2025-06-15 11:22] LABS: Cholesterol 225 mg/dL (0-200); Triglycerides 54 mg/dL (<150)
[2025-06-15 11:56] LABS: Thyroid Stimulating Hormone Reflex 1.010 uIU/mL (0.465-4.68)
[2025-06-15 13:00] LABS: HDL Direct 117 mg/dL
== END 2025-06-15 10:18 | disposition home or self-care (01) ==
PROVIDERS: PCP Family Medicine Adolescent Medicine; Referring Provider Internal Medicine Endocrinology, Diabetes & Metabolism
DX: E78.2 Mixed hyperlipidemia (principal); R53.83 Other fatigue; E10.9 Type 1 diabetes mellitus without complications; E55.9 Vitamin D deficiency, unspecified; E03.9 Hypothyroidism, unspecified
CPT/HCPCS: 36415; 80053; 80061; 82306; 84443; 85025

== ENCOUNTER 2025-06-25 00:20 | Day surgery (SDC) | payer BC, SELFPAY ==
--- OUTSIDE RECORDS SUMMARY | 2024-11-29 04:50 | XMS_ITS ---
Author Organization [facility] Address [address] [place], [place] [id number] Care Team Providers Care Employment Clerk Name Role Phone JC DICKINSON MD Primary Care Provider UnavailLatia Clarke Unavailable [phone] Jasmina Patrick Unavailable [phone] ALLERGIES No Known Allergies REASON FOR VISIT Patient is here for RA follow up. MEDICATIONS Medication SIG (Take, Route, Frequency, Duration) Notes Start Date End Date Status Fiasp 100 units/mL as directed subcutan eously 3 times a day (before meals) Active levothyroxine 125 mcg (0.125 mg) 1 tab(s) orally once a day A ctive pravastatin 10 mg 1 tab(s) orally once a day Active Humira Pen 40 mg/0.4 mL 40mg subcutaneou sly every other week Active SOCIAL HISTORY Tobacco Use: Social History Observation Description Date Details (start date - stop date) Former Smoker NA - NA Sex Assigned At : Social History Observation Description Sex Assigned At Unknown Tobacco Use: Question Answer Notes Smoking Status former smoker VITAL SIGNS BMI 28.48 kg/m2 11/29/2024 Blood pressure systolic 158 mm Hg 11/30/19 25 Blood pressure diastolic 92 mm Hg 025 Heart Rate 77 /min 11/29/2024 Height 72 in 11/29/2024 Weight 210 lbs 11/29/2024 PROCEDURES Procedure Date Ordered Date Performed Result Body Sit e Joint Injection-wrist, right 11/29/2024 N/A Encounters Encounter Location Date Provider Diagnosis [facility] [address], [address] [place], [place] [id number] 11/29/2024 Jasmina Patrick Rheumatoid arthritis with rheumatoid factor of multiple sites without organ or systems involvement M05.79 ; Right wrist pain M25.531 ; Other long term care social worker (current) drug therapy Z79.899 and Screening for tuberculosis Z11.1 ASSESSMENTS Encounter Date Diagnosis Assessment Notes Treatment Notes Treatment Clinical Notes Section Notes 11/29/2024 Rheumatoid arthritis with rheumatoid factor of multiple sites without organ or systems involvement (ICD-10 - M05.79) RA on humira and does fairly well. Right wrist is an issues at times. Will inject it today, mild activity, ice prn. Lab slip given for quest. Recent labs normal. 11/29/2024 Right wrist pain (ICD-10 - M25.531) RA on humira and does fairly well. Right wrist is an issues at times. Will inject it today, mild activity, ice prn. Lab slip given for quest. Recent labs normal. 11/29/2024 Other long term care social worker (current) drug therapy (ICD-10 - Z79.899) RA on humira and does fairly well. Right wrist is an issues at times. Will inject it today, mild activity, ice prn. Lab slip given for quest. Recent labs normal. 11/29/2024 Screening for tuberculosis (ICD-10 - Z11.1) RA on humira and does fairly well. Right wrist is an issues at times. Will inject it today, mild activity, ice prn. Lab slip given for quest. Recent labs normal. PLAN OF TREATMENT Medication Medication Name Sig Start Date Stop Date Notes Fiasp 100 units/mL as directed subcutan eously 3 times a day (before meals) levothyroxine 125 mcg (0.125 mg) 1 tab(s) orally once a day pravastatin 10 mg 1 tab(s) orally once a day Humira Pen 40 mg/0.4 mL 40mg subcutaneou sly every other week Pending Test Test Name Order Date AST (SGOT) 11/29/2024 Creatinine, Serum 11/29/2024 ALT (SGPT) 11/29/2024 CBC With Differential/Platelet Sed Rate - Westergren 11/29/2024 C-Reactive Protein, Quant 11/29/2024 Joint Injection-wrist, right 11/29/2024 Lab slip given 11/29/2024 QUANTIFERON(R)-TB GOLD PLUS, 1 TUBE 11/13 Next Appt Details Follow Up: 4 Months, Reason: Provider Name:Jasmina sanchez, 08/12/2025 10:00:00 AM, [address] [facility] [address], [address], [place], [place], [id number], Procedure Notes * Category Sub-Category Detail Notes Injection Site right wrist Drug Injected Xylocaine [facility]: 81482 -485-57 lot # [id number] exp: 10/10 , Triamcinalone Acetonide [facility] 5197-2950-28 LOT: [id number] EXP: 2025-12 Dose 20 mg , 0.5 cc X1 IA Note Site was prepped and cleaned, needle inserted without difficulty, patient tolerated procedure well, without any complications Progress Notes * Examination Category Sub-Category Detail Notes Category Not es General Constitutional: No acute distress HEENT: PERRLA, Neck supple, Normal sclerae and conjunctivae Cardiovascular RSR, No murmurs, Nor mal peripheral pulsations, No edema Lungs: clear to ausculation Skin: No cutaneous lesions . No subcutaneous nodules noted in the 4 extremities Neurological: No focal neurologica l findings Psych: Alert, oriented x 3, Normal affect Musculoskeletal: Normal strength. No muscle atrophy Joint Exam Shoulders No swelling. No tenderness. NROM. , right DROM , 1+ tenderness Elbows No swelling. No tend erness. NROM. Wrists No swelling. No tend erness. NROM., right fullness, bilateral, decreased ROM , 1+ tenderness , left fullness PIP4 right fullness (reso lved) Hips No tenderness, facundo l ROM, no instability or deformity Knees No swelling, no tend erness, NROM. No instability or deformity Ankles No swelling, no tend erness, NROM., No instability or deformity All MCPs No swelling, no tend erness, no deformity unless noted below. All PIPs No swelling, no tend erness, no deformity unless noted below. All DIPs No swelling, no tend erness, no deformity unless noted below. All MTPs No swelling, no tend erness, NROM, no deformity unless noted below. CMCs No CMC squaring, S0T 0 bilaterally PIP3 right, Mariah's no de, fullness (resolved) History and Physical Notes * HPI (History of Present Illness) Category Sub-Category Detail Notes Category Not es Rheumatology Joint pain hand, wrist and ankle Patient reports that she was diagnosed with RA around age 18 after giving to her son. She reports that she had seen extractor operator solvent process Dr Raoul Harmon who prescribed Plaquenil. She has not followed up with a extractor operator solvent process in 3 years. She reports that she has been having really bad pain and swelling in her ankle and wrist. She drinks 2 glasses of wine couple times per week. Went back to gym. Denies infections. Rash with SSZ. Right wrist was hit on something, was very sore but getting better. Very rarely takes meloxicam. Humira is going okay. Right wrist still bothersome, but usually happens after a irritating movement. Right wrist brace helps at the gym. Meloxicam rare. No recent infections. Last several months she has been having left cristobal and ankle/foot cramps at night. Lasts 30-45 minutes. No numbness. Takes magnesium supplment and drinks 100 oz water per day. She gets itchy after Humira injection given, takes 1-2 days for it to resolve on its own. She saw ortho for her shoulders- taking daily now, not sure if meloxicam is helping. She is also doing PT at home. Remains on humira. stopped meloxicam. Having some diarrhea issues intermittently for awhile. Hasn't not scheduled with neuro. Shared NCS/EMG report with endo due to DM. Switched to OTC vit D. Abby in Apr. Started PT for her right shoulder- slightly improvement, but did not resolve. Seeing ortho again next month. No recent infections. Her right wrist injection is bad again. Joint swelling Fever Dyspnea/SOB fatigue Mild morning stiffness 1 hour infection rash Oral sores chest pain Physical Examination Category Sub-Category Detail Notes Section Note s MDHAQ Summary Function (0-10):: PATIENT DID NOT COMPLE TE Pain (0-10):: PATIENT DID NOT COMPLETE Patient Global Assessment of Disease Activity (0-10):: PATIENT DID NOT COMPLETE RAPID3 Score (0-30):: COULD NOT SCORE PATIENT DID NOT COMPLETE ALL CATEGORIES Physician Global Assessment of Disease Activity (0-10):: 3 Prognosis Very Good w/tx Erosive Damage No
--- OUTSIDE RECORDS SUMMARY | 2024-11-29 05:11 | XMS_ITS ---
Author Organization [facility] Address [address] [place], [place] [id number] Care Team Providers Care Certified Coder Name Role Phone JC DICKINSON MD Primary Care Provider Latia Marks Unavailable [phone] MEDICATIONS Medication SIG (Take, Route, Fr equency, Duration) Notes Start Date End Date Status celecoxib 200 mg 1 cap(s) orally once a day for 30 day(s) 11/29/2024 Active Encounters Encounter Location Date Provider Diagnosis [facility] [address] [facility] [address] [place], [place] [id number] 11/29/2024 Latia Watters PLAN OF TREATMENT Medication Medication Name Sig Start Date Stop Date Notes celecoxib 200 mg 1 cap(s) orally once a day for 30 day(s) 11/29/2024 Next Appt Details Provider Name:Jasmina sanchez, 08/12/2025 10:00:00 AM, [address], [address], [place], [place], [id number],
--- OUTSIDE RECORDS SUMMARY | 2025-02-19 13:00 | XMS_ITS ---
Author Organization [facility] Address [address] [place], [place] [phone] Care Team Providers Care Smoke Tester Name Role Phone JC DICKINSON MD Primary Care Provider UnavailLatia Clarke Unavailable [phone] REASON FOR VISIT Reschedule Appointment Request Encounters Encounter Location Date Provider Diagnosis [facility] [address], [address] [place], [place] [phone] 02/19/2025 Latia Watters PLAN OF TREATMENT Next Appt Details Provider Name:Jasmina sanchez, 08/12/2025 10:00:00 AM, [address], [address], [place], [place], [phone],
--- OUTSIDE RECORDS SUMMARY | 2025-03-19 06:06 | XMS_ITS ---
Author Organization [facility] Address [address] [place], [place] [address] Care Team Providers Care Head Shipper Name Role Phone JC DICKINSON MD Primary Care Provider Latia Marks Unavailable [phone] REASON FOR VISIT HUMIRA MEDICATIONS Medication SIG (Take, Route, Fr equency, Duration) Notes Start Date End Date Status Humira Pen 40 mg/0.4 mL 40mg subcutaneou sly every other week for 28 days Active Encounters Encounter Location Date Provider Diagnosis [facility] [address], [address] [place], [place] [phone] 03/19/2025 Latia Watters PLAN OF TREATMENT Medication Medication Name Sig Start Date Stop Date Notes Humira Pen 40 mg/0.4 mL 40mg subcutaneou sly every other week for 28 days Next Appt Details Provider Name:Jasmina sanchez, 08/12/2025 10:00:00 AM, [address], [address], [place], [place], [phone],
--- OUTSIDE RECORDS SUMMARY | 2025-03-22 06:04 | XMS_ITS ---
Author Organization [facility] Address [address] [place], [place] [id number] Care Team Providers Care Career Development Director Name Role Phone JC DICKINSON MD Primary Care Provider Latia Marks Unavailable [phone] REASON FOR VISIT Humira - House Rx MEDICATIONS Medication SIG (Take, Route, Fr equency, Duration) Notes Start Date End Date Status Humira Pen 40 mg/0.4 mL 40mg subcutaneou sly every other week for 28 days Active Encounters Encounter Location Date Provider Diagnosis [facility] [address], [address] [place], [place] [phone] 03/22/2025 Latia Watters PLAN OF TREATMENT Medication Medication Name Sig Start Date Stop Date Notes Humira Pen 40 mg/0.4 mL 40mg subcutaneou sly every other week for 28 days Next Appt Details Provider Name:Jasmina sanchez, 08/12/2025 10:00:00 AM, [address], [address], [place], [place], [id number],
--- OUTSIDE RECORDS SUMMARY | 2025-04-01 05:30 | XMS_ITS ---
Author Organization [facility] Address [address] [place], [place] [id number] Care Team Providers Care Case Resource Manager Name Role Phone JC DICKINSON MD Primary Care Provider UnavailLatia Clarke Unavailable [phone] Jasmina Patrick Unavailable REASON FOR VISIT 4 mo f/u Encounters Encounter Location Date Provider Diagnosis [facility] [address], [address] [place], [place] [phone] 04/01/2025 Jasmina Patrick PLAN OF TREATMENT Next Appt Details Provider Name:Jasmina sanchez, 08/12/2025 10:00:00 AM, [address], [address], [place], [place], [id number],
--- OUTSIDE RECORDS SUMMARY | 2025-04-08 05:30 | XMS_ITS ---
Author Organization [facility] Address [address] [place], [place] [address] Care Team Providers Care Hay Buckler Name Role Phone JC DICKINSON MD Primary Care Provider UnavailLatia Clarke Unavailable [phone] Jasmina Patrick Unavailable ALLERGIES No Known Allergies REASON FOR VISIT Patient is here for RA follow up. MEDICATIONS Medication SIG (Take, Route, Frequency, Duration) Notes Start Date End Date Status Humira Pen 40 mg/0.4 mL 40mg subcutaneou sly every other week Active celecoxib 200 mg 1 cap(s) orally once a day for 30 day(s) 11/29/2024 Active Humira Pen 40 mg/0.4 mL 40mg subcutaneou sly every other week for 28 days Active pravastatin 10 mg 1 tab(s) orally once a day Active levothyroxine 125 mcg (0.125 mg) 1 tab(s) orally once a day A ctive Fiasp 100 units/mL as directed subcutan eously 3 times a day (before meals) Active SOCIAL HISTORY Tobacco Use: Social History Observation Description Date Details (start date - stop date) Former Smoker NA - NA Sex Assigned At : Social History Observation Description Sex Assigned At Unknown Tobacco Use: Question Answer Notes Smoking Status former smoker VITAL SIGNS BMI 28.88 kg/m2 04/08/2025 Blood pressure systolic 147 mm Hg 04/08/20 25 Blood pressure diastolic 80 mm Hg 025 Heart Rate 84 /min 04/08/2025 Height 72 in 04/08/2025 Weight 213 lbs 04/08/2025 Encounters Encounter Location Date Provider Diagnosis [facility], [address], [address] [place], [place] [phone] 04/08/2025 Jasmina Patrick Rheumatoid arthritis with rheumatoid factor of multiple sites without organ or systems involvement M05.79 ; Right wrist pain M25.531 ; Other assisted (current) drug therapy Z79.899 and Screening for tuberculosis Z11.1 ASSESSMENTS Encounter Date Diagnosis Assessment Notes Treatment Notes Treatment Clinical Notes Section Notes 04/08/2025 Rheumatoid arthritis with rheumatoid factor of multiple sites without organ or systems involvement (ICD-10 - M05.79) RA on humira and does fairly well. Right wrist is an issues at times, injections prn. Lab slip given for labs. Yearly quantiferon. Reminded of celebrex, okay with tylenol. 04/08/2025 Right wrist pain (ICD-10 - M25.531) RA on humira and does fairly well. Right wrist is an issues at times, injections prn. Lab slip given for labs. Yearly quantiferon. Reminded of celebrex, okay with tylenol. 04/08/2025 Other assisted (current) drug therapy (ICD-10 - Z79.899) RA on humira and does fairly well. Right wrist is an issues at times, injections prn. Lab slip given for labs. Yearly quantiferon. Reminded of celebrex, okay with tylenol. 04/08/2025 Screening for tuberculosis (ICD-10 - Z11.1) RA on humira and does fairly well. Right wrist is an issues at times, injections prn. Lab slip given for labs. Yearly quantiferon. Reminded of celebrex, okay with tylenol. PLAN OF TREATMENT Medication Medication Name Sig Start Date Stop Date Notes Humira Pen 40 mg/0.4 mL 40mg subcutaneou sly every other week Pending Test Test Name Order Date AST (SGOT) 04/08/2025 Creatinine, Serum 04/08/2025 ALT (SGPT) 04/08/2025 CBC With Differential/Platelet Sed Rate - Westergren 04/08/2025 C-Reactive Protein, Quant 04/08/2025 Lab slip given 04/08/2025 QUANTIFERON(R)-TB GOLD PLUS, 1 TUBE 03/16 Next Appt Details Follow Up: 4 Months, Reason: Provider Name:Jasmina sanchez, 08/12/2025 10:00:00 AM, [address] [facility], [address], [place], [place], [phone], Progress Notes * Examination Category Sub-Category Detail [...] swelling. No tenderness. NROM. , right DROM ,KAY- rotator cuff surgery Elbows No swelling. No tend erness. NROM. [...] son. She reports that she had seen biomass plant technician Dr Raoul Harmon who prescribed Plaquenil. She has not followed up with a biomass plant technician in 3 years. She reports that she [...] Her right wrist injection is bad again. Right rotator cuff done in February- went well, stil in PT. Was off Humira a few weeks. BAck on now, has not been taking celebrex. No recent infections, rashes, or sob. Right wrist inj last time did help. Joint swelling Fever Dyspnea/SOB fatigue Mild morning stiffness 1 hour infection rash Oral sores chest pain Physical Examination Category Sub-Category Detail Notes Section Note s MDHAQ Summary Function (0-10):: 3.7 Pain (0-10):: 6 Patient Global Assessment of Disease Activity (0 -10):: 7 RAPID3 Score (0-30):: 16.7 Physician Global Assessment of Disease Activity (0-10):: 3 Prognosis Very Good w/tx Erosive Damage No
--- OUTSIDE RECORDS SUMMARY | 2025-06-10 06:22 | XMS_ITS ---
Author Organization [facility] Address [address] [place], [place] [phone] Care Team Providers Care Supervisor Varnish Name Role Phone JC DICKINSON MD Primary Care Provider Latia Marks Unavailable [phone] Encounters Encounter Location Date Provider Diagnosis [facility] [address] [place], [place] [phone] 06/10/2025 Latia Watters PLAN OF TREATMENT Next Appt Details Provider Name:Jasmina sanchez, 08/12/2025 10:00:00 AM, [address], [address], [place], [place], [phone],
--- OUTSIDE RECORDS SUMMARY | 2025-06-12 03:55 | XMS_ITS ---
Author Organization [facility] Address [address] [place], [place] [phone] Care Team Providers Care Pilot Can Router Name Role Phone JC DICKINSON MD Primary Care Provider Latia Marks Unavailable [phone] MEDICATIONS Medication SIG (Take, Route, Fr equency, Duration) Notes Start Date End Date Status Humira Pen 40 mg/0.4 mL 40mg subcutaneou sly every other week for 28 days Active Encounters Encounter Location Date Provider Diagnosis [facility] [address], [address] [place], [place] [phone] 06/12/2025 Latia Watters PLAN OF TREATMENT Medication Medication Name Sig Start Date Stop Date Notes Humira Pen 40 mg/0.4 mL 40mg subcutaneou sly every other week for 28 days Next Appt Details Provider Name:Jasmina sanchez, 08/12/2025 10:00:00 AM, [address], [address], [place], [place], [phone],
--- OUTSIDE RECORDS SUMMARY | 2025-06-13 08:36 | XMS_ITS ---
Author Organization [facility] Address [address] [place], [place] [phone] Care Team Providers Care Bar Host/Hostess Name Role Phone JC DICKINSON MD Primary Care Provider Latia Marks Unavailable [phone] REASON FOR VISIT Humira PA - HouseRx MEDICATIONS Medication SIG (Take, Route, Fr equency, Duration) Notes Start Date End Date Status Humira Pen 40 mg/0.4 mL 40mg subcutaneou sly every other week for 28 days Active Encounters Encounter Location Date Provider Diagnosis [facility] [address], [address] [place], [place] [phone] 06/13/2025 Latia Watters PLAN OF TREATMENT Medication Medication Name Sig Start Date Stop Date Notes Humira Pen 40 mg/0.4 mL 40mg subcutaneou sly every other week for 28 days Next Appt Details Provider Name:Jasmina sanchez, 08/12/2025 10:00:00 AM, [address], [address], [place], [place], [phone],
[2025-06-13 14:18] VITALS: BMI 28.0
--- NOTE | 2025-06-13 14:19 | PC.NURSE ---
Addendum entered by Ginny Guzman RN 06/13/25 14:33: MAY HAVE TYLENOL DAY OF SURGERY IF NEEDED Original Note: [facility] has started construction of its new state of the art ER which will open Spring 2026. With this, we anticipate parking may be a challenge for some our surgical patients and families. Parking spaces are limited but are available for all Surgical, obstetrics, and ER patients sharing this lot. If you arrive and find you are having a hard time finding a parking space, please note that we understand the challenges, please drive around the hospital and park near Hospital Entrance 1. When you enter this entrance, you can ask a volunteer to direct or take you back to the surgical waiting area to check in. We appreciate everyone?s understanding of these expected challenges while we build for your future. Report to the Outpatient Waiting Room, entrance under the green pavilion located off [address], at time _1230_ on date _06/25/25. Planned Procedure Time: _1430 .? Time changes happen often and if your time is changed the preop area will call you the afternoon before. - You and your visitor will be asked to self-screen and do not enter if you have any COVID symptoms. Please call surgeon if you need to reschedule. - A mask is optional within the hospital at this time. Patients may have clear liquids (water, carbonated beverages, clear teas, apple juice) until 3 hours prior to surgery with a maximum of 20 ounces. - No food from midnight until time of surgery and no smoking, or chewing tobacco (or any form of nicotine). No chewing gum, candy or mints. Take only the following medications with a SIP of water on the morning of surgery: ___LEVOTHYROXINE, CONTINUOUS INSULIN PUMP AND SELF REGULATING MONITOR DO NOT STOP ANY OF YOUR OTHER PRESCRIPTION MEDICATIONS PRIOR TO SURGERY EXCEPT THE FOLLOWING Hold all vitamins and supplements for 3 days per anesthesiologist. Medications to discontinue per physician NONE Date to take last dose Please no make-up, nail macanese, hairspray, perfume, deodorant, or body powder the day of surgery.? No jewelry (including any body piercings) or valuables the day of surgery, leave them at home.? Please take a shower or bath the night before, or the morning of, surgery with an antibacterial soap.? Wear comfortable, loose fitting clothing.? Children are encouraged to wear pajamas. - Jewelry must be removed prior to entering the operating room.? Rings and piercings that are not removed may be cut off. - The hospital will not accept responsibility for valuables.? - Please leave all valuables, including medications, at home the day of surgery. If you are going home after surgery, a licensed bookmobile driver must drive you home.? - NO public transportation without another adult if you receive anesthesia. - We recommend that an adult stay with you for 24 hours following discharge. - We also recommend that you do not drive, make important decision, drink alcoholic beverages, or take any drugs that were not prescribed by your health care provider for at least 24 hours after your discharge time. For Pediatric surgeries, we recommend two adults accompany the child home. Follow any additional instructions given to you from your surgeon. Telephone instructions given to PATIENT__and asked if any additional questions and then verbalized understanding. Patient advised to call surgeon office or pre surgery nurse liaison [phone] if any additional questions.
[2025-06-25] VITALS (7 sets, daily range): BP systolic 139–159; BP diastolic 69–98; PULSE 67–81; RESP 12–23; TEMP 36.6; O2SAT 98–100
--- OUTSIDE RECORDS SUMMARY | 2025-06-25 00:24 | XMS_ITS | Clinical Summary ---
Author Organization [facility] [place] Address [address] [facility] [place] [address] Care Team Providers Care Vocational Teacher Name Role Phone Unavailable Primary Care Provider Unavailabl e Allergies No known active allergies Active Problems No known active problems Social History Tobacco Use Types Packs/Day Years [...] 2019 INFLUENZA VACCINE (#1) 2025 Insurance [facility] BLUE ACCESS/TRUE BLUE PPO
--- OUTSIDE RECORDS SUMMARY | 2025-06-25 00:24 | XMS_ITS | Patient Health Record ---
Author Organization [facility] Address [address] [place], [place] [phone] Care Team Providers Care Workcell Operator Name Role Phone JC DICKINSON MD Primary Care Provider Unavailseema MatiasCheco gaosravanthi Unavailable [phone] Jasmina Patrick Unavailable [phone] ALLERGIES No Known Allergies RESULTS Component Value Reference Range Notes CREATININE Reviewed date:11/20/2024 04:21:59 PM Interpretation: Performing Lab:[facility] [place] [address] Administration Regan Colindres [address] Notes/Report: FASTING:NO FASTING: NO CREATININE 0.76 0.50-1.03 mg/dL EGFR 92 > OR = 60 mL/min/1.73m2 AST Reviewed date:11/20/2024 04:21:59 PM Interpretation: Performing Lab:[facility] [place] [address] Administration Regan Colindres [address] Notes/Report: FASTING:NO FASTING: NO AST 21 10-35 U/L ALT Reviewed date:11/20/2024 04:21:59 PM Interpretation: Performing Lab:[facility] [place] [address] Administration Regan Colindres [address] Notes/Report: FASTING:NO FASTING: NO ALT 15 6-29 U/L SED RATE BY MODIFIED WESTERG JAVI Reviewed date:11/20/2024 04:21:59 PM Interpretation: Performing Lab:[facility] [place] [address] Administration Regan Colindres [address]uyH[facility] Juliet Ward Notes/Report: FASTING:NO FASTING: NO SED RATE BY MODIFIED WESTERGREN 24 < OR = 30 mm/h CBC (INCLUDES DIFF/PLT) Reviewed date:11/20/2024 04:21:59 PM Interpretation: Performing Lab:[facility] [place] [address] Administration Regan Colindres [address]keishaNorthland Medical Centerfartun Ward Notes/Report: FASTING:NO FASTING: NO [...] MPV 10.6 7.5-12.5 fL ABSOLUTE NEUTROPHILS 5561 3061-2037 cells/uL ABSOLUTE LYMPHOCYTES 2688 850-3900 cells/uL ABSOLUTE MONOCYTES 716 200-950 cells/uL ABSOLUTE EOSINOPHILS 223 15-500 cells/uL ABSOLUTE BASOPHILS 112 0-200 cells/uL NEUTROPHILS 59.8 LYMPHOCYTES 28.9 MONOCYTES 7.7 EOSINOPHILS 2.4 BASOPHILS 1.2 C-REACTIVE PROTEIN Reviewed date:11/20/2024 04:21:59 PM Interpretation: Performing Lab:[place] [place] [address] Administration Regan Colindres [address] [facility] Notes/Report: FASTING:NO FASTING: NO C-REACTIVE PROTEIN [...] Code Notes Problem Polyarthritis (M13.0) Active confirmed 27337335 Problem Right wrist pain (M25.531) Active confirmed 109296991613793 Problem Rheumatoid arthritis with positive rheumatoid factor, involving unspecified site (M05.9) Active confirmed 249345879 Problem Rheumatoid arthritis with rheumatoid factor of multiple sites without organ or systems involvement (M05.79) Active confirmed 716004066 Problem Other fdc (current) drug therapy (Z79.899) Active confirmed 345794497 Problem Screening for tuberculosis (Z11.1) Active confirmed 696416539 VITAL SIGNS Heart Rate 84 /min 04/08/2025 Blood pressure diastolic 80 mm Hg 04/08/2025 Height 72 in 04/08/2025 Blood pressure systolic 147 mm Hg 04/08/2025 Weight 213 lbs 04/08/2025 BMI 28.88 kg/m2 04/08/2025 PROCEDURES Procedure Date Ordered Date Performed Result Body Sit e Joint Injection-wrist, right 11/29/2024 N/A Encounters Encounter Location Date Provider Diagnosis [facility] 2 NVinod Summers, [facility] [address] [place], [place] [id number] 08/03/2024 Jasmina [facility]idemantel [facility] NVinod [facility], [facility] [address] [place], [place] [id number] 08/02/2024 Jasmina Scheidemantel Rheumatoid arthritis with rheumatoid factor of multiple sites without organ or systems involvement M05.79 and Other fdc (current) drug therapy Z79.899 [facility] 2 [facility] [facility], [facility] [address] [place], [place] [id number] 11/29/2024 Jasmina Scheidemantel Rheumatoid arthritis with rheumatoid factor of multiple sites without organ or systems involvement M05.79 ; Right wrist pain M25.531 ; Other terminologist (current) drug therapy Z79.899 and Screening for tuberculosis Z11.1 [facility] [address] [id number] 04/01/2025 Jasmina Scheidemantel [facility] [address] [id number] 04/08/2025 Jasmina Scheidemantel Rheumatoid arthritis with rheumatoid factor of multiple sites without organ or systems involvement M05.79 ; Right wrist pain M25.531 ; Other fdc (current) drug therapy Z79.899 and Screening for tuberculosis Z11.1 [facility] [address] [id number] 11/29/2024 Aksravanthi Janene [facility] [address] [id number] 03/19/2025 Aksravanthi Janeen [facility] [address] [id number] 03/22/2025 Aksravanthi Janene [facility] [address] [place] [id number] 06/10/2025 Aksravanthi Janene [facility] [address] [place] [id number] 06/12/2025 Aksravanthi Janene [facility] [address] [id number] 06/13/2025 Aksravanthi Janene [facility] [address] [place] [id number] 02/19/2025 Latia Watters ASSESSMENTS Encounter Date Diagnosis Assessment Notes Treatment Notes Treatment Clinical Notes Section Notes 08/02/2024 Other terminologist (current) drug therapy (ICD-10 - Z79.899) Labs [...] Reminded of celebrex, okay with tylenol. 11/29/2024 Other fdc (current) drug therapy (ICD-10 - Z79.899) RA on humira and does fairly well. Right wrist is an issues at times. Will inject it today, mild activity, ice prn. Lab slip given for quest. Recent labs normal. 04/08/2025 Other fdc (current) drug therapy (ICD-10 - Z79.899) RA on humira and does fairly well. Right wrist is an issues at times, injections prn. Lab slip given for labs. Yearly quantiferon. Reminded of celfarhan aguilaray with tylenol. 11/29/2024 Screening for tuberculosis (ICD-10 [...] given for labs. Yearly quantiferon. Reminded of celebrexfarhanay with tylenol. PLAN OF TREATMENT Pending Test Test Name Order Date AST (SGOT) 11/30/2023 AST (SGOT) 11/29/2024 AST (SGOT) 04/21/2023 AST (SGOT) 03/30/2024 AST (SGOT) 04/08/2025 CPK Total,Serum 03/30/2024 Creatinine, Serum 04/08/2025 Creatinine, Serum 11/30/2023 Creatinine, Serum 11/29/2024 Creatinine, Serum 04/21/2023 Creatinine, Serum 03/30/2024 Magnesium, Serum 03/30/2024 ALT (SGPT) 03/30/2024 ALT (SGPT) 04/08/2025 ALT (SGPT) 11/30/2023 ALT (SGPT) 11/29/2024 ALT (SGPT) 04/21/2023 Aldolase 03/30/2024 CBC With Differential/Platelet 5 CBC With Differential/Platelet 4 CBC With Differential/Platelet 4 CBC With Differential/Platelet 5 CBC With Differential/Platelet 3 Sed Rate - Westergren 04/08/2025 Sed Rate - Westergren 03/30/2024 Sed Rate - Westergren 11/30/2023 Sed Rate - Westergren 11/29/2024 C-Reactive Protein, Quant 11/30/2023 C-Reactive Protein, Quant 11/29/2024 C-Reactive Protein, Quant 04/08/2025 C-Reactive Protein, Quant 03/30/2024 VITAMIN B12 03/30/2024 Nerve Conduction Study 03/30/2024 X ray : Hand left- outside order 023 X ray : Hand right- outside order 2022 Joint Injection-wrist, right 11/29/2024 Joint Injection-wrist, right 02/03/2023 X ray : Foot Left- outside order 023 X ray : Foot Right- outside order 2022 Lab slip given 11/29/2024 Lab slip given 04/21/2023 Lab slip given 04/08/2025 EMG 03/30/2024 QUANTIFERON(R)-TB GOLD PLUS, 1 TUBE 03/16 QUANTIFERON(R)-TB GOLD PLUS, 1 TUBE 11/13 QUANTIFERON(R)-TB GOLD PLUS, 1 TUBE 03/15 QUANTIFERON(R)-TB GOLD PLUS, 1 TUBE 11/13 Future Test Test Name Order Date Lab slip given 08/02/2024 AST (SGOT) 08/30/2024 Creatinine, Serum 08/30/2024 ALT (SGPT) 08/30/2024 CBC With Differential/Platelet Sed Rate - Westergren 08/30/2024 C-Reactive Protein, Quant 08/30/2024 Next Appt Details Provider Name:Jasmina sanchez, 08/12/2025 10:00:00 AM, [address] [facility], [address], [place], [place], [phone], Insurance Providers Payer Name Payer Address Payer Phone Subscriber Number Group Number Insured Name Patient Relationship to Insured Coverage Start Date Coverage End Date Vandana Willett [address] [place] [address] [id number] Donna Bocanegra Self - patient is the insured 8 MEDICAL (GENERAL) HISTORY Medical History History ICD Code diabetes type 1 depression thyroid disease high blood pressure bronchitis Surgical History Surgery Date(Month/Year) foot surgery(s) C section
--- NOTE | 2025-06-25 08:30 | WPDHPUPDATE1 ---
History and Physical Update Update Date/Time: 06/25/25 08:30 History and Physical has been reviewed, including an updated exam of the patient. There are NO changes in the patient's condition. Risks, benefits, and alternatives have been discussed and questions answered. Patient agrees to proceed with procedure.
[2025-06-25] MEDS: CELECOXIB 200 MG CAPSULE PO (13:02)
[2025-06-25] MEDS: ACETAMINOPHEN 500 MG TABLET 1000 MG PO (13:02)
--- NOTE | 2025-06-25 14:43 | WPDANESEPPF ---
Anes - Initial Pre Proc Eval Procedure: Operation Date: 06/25/25 14:30 Proposed Procedures p Right Shoulder Manipulation Under Anesthesia with Cortisone Injection - Ender Shaw MD Date/Time: 06/25/25 14:43 Surgeon: Ender Shaw MD Pre Op Diagnosis: rt shoulder adhesive capsulitis Patient Data Age: 54 Gender: F Height: 1.83 m Weight: 98.5 kg Last Vital Signs Temp 36.6 C 06/25/25 12:30 Pulse 68 06/25/25 12:30 Resp 16 06/25/25 12:30 BP 156/82 H 06/25/25 12:30 Pulse Ox 98 06/25/25 12:30 O2 Del Method Room Air 06/25/25 12:30 Allergies Allergy/AdvReac Type Severity Reaction Status Date / Time sulfadiazine Allergy Intermediate Hives Verified 06/13/25 14:09 Home Medications ?Medication ?Instructions ?Recorded ?Confirmed ?Type adalimumab 40 mg/0.8 mL 40 mg subcut Q14D 12/13/23 06/13/25 History subcutaneous pen kit (Humira Pen) levothyroxine 125 mcg tablet 125 mcg PO .COMPLEX #90 tabs 07/02/24 06/25/25 Rx glucagon 3 mg/actuation nasal spray 3 mg intranasal ONCE #2 ea 09/17/24 06/13/25 Rx blood-glucose sensor (Dexcom G6 #9 ea 12/25/24 06/10/25 Rx Sensor device) blood-glucose transmitter (Dexcom #1 ea 12/25/24 06/10/25 Rx G6 Transmitter device) insulin pump cart,auto,BT,G6/7 #45 ea 01/17/25 06/10/25 Rx (Omnipod 5 G6-G7 Pods (Gen 5) subcutaneous cartridge) losartan 25 mg tablet See Rx Instructions .Route 01/17/25 06/25/25 Rx .COMPLEX #90 tabs insulin aspart (niacinamide) 80 unit subcut DAILY 3 months #80 03/26/25 06/25/25 Rx (U-100) 100 unit/mL subcutaneous mL solution (Fiasp U-100 Insulin) acetaminophen 325 mg tablet (Pain 325 mg PO Q4-6H PRN pain 06/13/25 06/13/25 History Relief (acetaminophen)) rosuvastatin 40 mg tablet 40 mg PO DAILY #90 tabs 06/17/25 06/25/25 Rx Laboratory Tests 06/25/25 12:47 POC Capillary Glucose 113 H mg/dl (65-105) Patient hx anesthesia problems: none Family hx anesthesia problems: none Results Review: All pre-operative results and documents have been reviewed as part of the pre-operative evaluation. [facility] Past Medical History Medical History Rotator cuff tendonitis Right shoulder pain COVID Low vitamin D level Ulcer of foot Postmenopausal Mixed hyperlipidemia Major depressive disorder Long-term use of immunosuppressant medication Hypovitaminosis D Hallux valgus (acquired), unspecified foot Body mass index (BMI) greater than 30 (02/13/19) Acquired hammertoe of right foot COVID Hypertension Scoliosis Lung nodule COVID-19 Type 1 diabetes mellitus with hyperglycemia Dietary counseling and surveillance Insulin pump in place Rheumatoid arthritis Type 1 diabetes mellitus with hypoglycemia without coma Weight loss Skin laxity Insulin pump titration HLD (hyperlipidemia) Hypothyroidism Type 1 diabetes mellitus without complications Surgical History Surgical History S/P right rotator cuff repair (~02/19/25) History of S/P joint replacement History of foot surgery Family History Family History Father Family history of arthritis Mother Family history of heart disease in male family member before age 55 Unknown Depression Heart disease Diabetes mellitus Other Family history of alcoholism Family history of osteoporosis Family history of seizure disorder Social History Social History Smoking packs per day: 0.1 Smoking cigarettes per day: 2.0 Years smoked: 15 Smoking pack-years: 1.50 Smoking status: Former smoker Second hand tobacco smoke exposure: No Additional smoking assessment comments: off and on Alcohol intake: current Drinks per week: 2 Alcohol use details: 2-3 glasses of wine Substance use: current Substance use type: does not use Other substance usage details: edibles; 2x/week Do You Feel Safe in your Home?: Yes Lack of Transportation: No Lack of Food: Never True Current Housing: I Have Housing Concerned About Future Housing: No Difficulty Paying Gas/Electric Bills: No Difficulty Paying for Meds: No Currently Unemployed: No Difficulty w/ Childcare or Family Care: No Living arrangements: with family Occupation/Education: occupation 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 Gender identity (if verbalized by the patient): Female Spiritual care concerns: No Agree to blood products: Yes Anes - Eval Final PreProcedure Day of Procedure 06/25/25 14:43 Patient weight: overweight Heart: regular rate and rhythm Lungs: clear to auscultation Airway: Mallampati scale class II Neurological: alert and oriented Last oral intake: >/= 8 hours ASA classification: III Emergent: no Anesthetic plan: proceed Anesthesia type and monitoring: general GIVS and standard monitoring Results Review: All pre-operative results and documents have been reviewed as part of the pre-operative evaluation. Informed Consent: The patient's anesthetic plan and its attendant risks and benefits were discussed with the patient/family/POA. Questions were solicited and answers provided to the satisfaction of the patient/family/POA.
--- NOTE | 2025-06-25 14:59 | WNDPHOTO ---
PHOTO ONLY - See Nursing Notes and/ or assessments for documentation.
[2025-06-25] MEDS: methylPREDNISolone ACETATE 80 MG/ML VIAL 160 MG IM (15:10)
[2025-06-25] MEDS: BUPivacaine HCL 0.5% 10 ML AMP 5 ML INFILTRATE (15:14)
[2025-06-25] MEDS: LACTATED RINGERS 1,000 ML 30 ML IV CONT (15:18)
--- NOTE | 2025-06-25 15:22 | W.PM.PROC2 ---
Procedure Note - Detailed Date of Procedure 06/25/25 Pre-op Diagnosis rt shoulder adhesive capsulitis Post-op Diagnosis Same Procedure Performed [place], INJECTION RIGHT SHOULDER JOINT Surgeon Ender Shaw MD Anesthesia General Description of Procedure THE PATIENT WAS TAKEN TO THE OPERATING ROOM AND PLACED UNDER GENERAL ANESTHESIA. ONCE SHE WAS CHEMICALLY PARALYZED THE RIGHT SHOULDER WAS MANIPULATED UNTIL ABOUT 180 DEG OF FLEXION AND ABDUCTION WERE ACHIEVED. NEXT THE RIGHT SHOULDER GLENOHUMERAL REGION WAS PREPPED AND DRAPED STERILELY. DEPO MEDROL 80 MG X 2 CC AND MARCAINE 0.5% 5 CC WERE INJECTED IN TO THE RIGHT SHOULDER GLENOHUMERAL JOINT. THE PATIENT WAS SENT TO THE RECOVERY ROOM ONCE GENERAL ANESTHESIA WAS REVERSED, IN STABLE CONDITION. Estimated Blood Loss 0 Complications No immediate complications Condition Stable Disposition PACU
[2025-06-25] MEDS: fentaNYL CITRATE INJ (*CRX) 100 MCG/2 ML VIAL 25 MCG IV PUSH ×4 (15:27→15:36)
[2025-06-25] MEDS: HYDROcodone/acetaminophen (*CRX) 5-325 MG TABLET 2 TAB PO (16:53)
== END 2025-06-25 17:05 | disposition home or self-care (01) ==
PROVIDERS: PCP Family Medicine Adolescent Medicine; Visit Provider Orthopaedic Surgery
PROC: (CPT 23700; principal; 2025-06-25 14:30)
DX: M75.01 Adhesive capsulitis of right shoulder (principal); G89.29 Other chronic pain; I10 Essential (primary) hypertension; E10.65 Type 1 diabetes mellitus with hyperglycemia; E10.649 Type 1 diabetes mellitus with hypoglycemia without coma; E03.9 Hypothyroidism, unspecified; E55.9 Vitamin D deficiency, unspecified; E78.2 Mixed hyperlipidemia; F32.9 Major depressive disorder, single episode, unspecified; L57.4 Cutis laxa senilis; M06.9 Rheumatoid arthritis, unspecified; F12.90 Cannabis use, unspecified, uncomplicated; Z79.620 Long term (current) use of immunosuppressive biologic; Z79.4 Long term (current) use of insulin; Z96.41 Presence of insulin pump (external) (internal); Z98.890 Other specified postprocedural states; Z82.49 Family history of ischemic heart disease and other diseases of the circulatory system
CPT/HCPCS: 23700; 82948; A9270; J0330; J1010; J2704; J3010; J7120